=== PATIENT | male | born 1950 ===

== ENCOUNTER 2019-03-22 11:30 | Inpatient (IN) ==
[2019-03-22] MEDS ORDERED: 0.9 % Sodium Chloride 1,000 ML IVC ONE (12:10)
[2019-03-22] MEDS ORDERED: Levofloxacin 750 MG/150 ML 750 MG/150 ML BAG IVPB ONE (12:11)
--- NOTE | 2019-03-22 12:14 | Emergency Department Note ---
Disposition Clinical Impression: Community acquired pneumonia Disposition: Admitted As Inpatient Condition: Fair Referrals: Wang Nunes [Primary Care Provider] - Forms: ED Satisfaction Letter General Adult HPI - General Chief complaint: ED Shortness of Breath/Dyspnea Stated complaint: Lung infection,CA Patient Time Seen by Provider: 03/22/19 11:54 Source: patient Limitations: no limitations Nursing Notes Reviewed: Yes Vital Signs Reviewed: Yes - History of Present Illness HPI Narrative: Patient is a 68-year-old male that presented emergency room with complaints of shortness of breath, the patient apparently just had a CAT scan done this morning. The patient apparently had evidence of pneumonia on the CAT scan and was sent here to the emergency room for further evaluation. Patient feels he is short of breath is especially worse with exertion. It is been worse over the past 1-2 weeks he states. The patient has been on long-term prednisone taper. Patient states that he does have occasional cough that brings up phlegm he states. He denies any leg pain or swelling. Patient does have a history of lung cancer. Patient denies any abdominal pain. The patient denies any significant chest pain. The patient states sometimes with cough he does have bilateral chest discomfort only. The patient denies any focal weakness or numbness. The patient states earlier this morning he did stand up and he got somewhat sweaty and short of breath when he stood up. Patient denies any congestion, he denies any headache, he denies any focal weakness or numbness. Pain Scale: 1 - Related Data Home Medications Medication Instructions Recorded Confirmed Pantoprazole Sodium [Protonix] 20 mg PO DAILY 09/24/18 03/22/19 Previous Rx's Medication Instructions Recorded Ondansetron [Zofran] 1 tab PO BID PRN #60 tablet 07/20/18 Prochlorperazine Maleate 1 tab PO Q6HR PRN #30 tablet 07/20/18 [Compazine] Albuterol Sulfate [Albuterol 1 puff IH BID PRN #1 hfa.aer.ad 01/12/19 Inhaler] Ranitidine HCl [Heartburn Relief] 150 mg PO DAILY #30 tablet 02/11/19 predniSONE [PredniSONE] 10 mg PO DAILY #151 tablet 02/21/19 LORazepam [Ativan] 1 mg PO ONCE 1 Days #1 tablet 03/22/19 Allergies Allergy/AdvReac Type Severity Reaction Status Date / Time aspirin Allergy Anaphylaxis Verified 03/22/19 08:14 Review of Systems: As mentioned per history of present illness and as follows. Constitutional: Negative for chills or fever HENT: Negative for sore throat. Eyes: Negative for visual disturbance Respiratory: Positive for shortness of breath. Cardiovascular: Negative for palpitations. Gastrointestinal: Negative for abdominal pain Genitourinary: Negative for dysuria Musculoskeletal: Negative for back pain. Skin: Negative for rash. Neurological: Negative for focal weakness Psychiatric/Behavioral: Negative for depression Past Medical History - Past Medical History Medical history: Reports: arthritis, cancer, hyperlipidemia, hypertension, migraine Surgical history: Reports: no surgical history Psychiatric history: Reports: no psych history - Social History Smoking Status: Former smoker Smokeless Tobacco Status: No Alcohol use: Reports: none Drug use: Reports: none Physical Exam PHYSICAL EXAM Constitutional: Well developed, Well nourished, No acute distress, Non-toxic appearance. HENT: Normocephalic, Atraumatic, Bilateral external ears normal, Oropharynx moist, No oral exudates, Nose normal. Neck- Normal range of motion, No tenderness, Supple. Eyes: PERRL, EOMI, Conjunctiva normal,. Cardiovascular: Tachycardic rate and regular rhythm without clicks, rubs, gallops or murmurs. Respiratory: Patient is admitted over air movement, no significant distress as noted, the patient has no severe wheezing, scattered crackles noted. GI: Soft, nontender, no evidence of guarding or peritoneal signs. Bowel sounds are active. Musculoskeletal: Good range of motion in all major joints. No tenderness to palpation or major deformities noted. +5/5 strength noted to all extremities. Integument: Warm, Dry, No erythema, No rash. No edema. Neurologic: Alert & oriented x 3, Normal sensory function, No focal deficits noted. CN II-XII grossly intact. - General Limitations: no limitations General appearance: alert, in no apparent distress Course Vital Signs Temperature 97.8 F 03/22/19 11:38 Pulse Rate 116 03/22/19 11:38 Respiratory Rate 20 03/22/19 11:38 Blood Pressure 141/87 03/22/19 11:38 O2 Sat by Pulse Oximetry 93 03/22/19 11:38 Temperature 97.8 F 03/22/19 11:38 Pulse Rate 122 03/22/19 12:58 Respiratory Rate 17 03/22/19 12:58 Blood Pressure 141/87 03/22/19 11:38 O2 Sat by Pulse Oximetry 93 03/22/19 12:58 Oxygen Delivery Oxygen Delivery Nasal Cannula Medical Decision Making - MDM Narrative Medical decision making narrative: Patient did have a CTA done this morning prior to arrival, was reviewed by myself. This did show evidence of what appears to be more of an interstitial pneumonia type pattern. The patient does have lung nodules noted. The patient appears to also have some metastatic spread to the thoracic spine. Patient however is neurologically intact currently in the emergency room. EKG was also performed that showed evidence of sinus tachycardia and 113 bpm. The patient has no evidence of ST elevation or depression, WA and QT intervals within normal limits. Intervertebral myself. Patient was given breathing treatments here in the emergency room. The patient was also given Levaquin for a community-acquired pneumonia. The patient this point time is going to be admitted. Case was discussed with the hospitalist in full detail and the patient will be admitted to the floor in stable condition. Patient has been placed on supplement oxygen and O2 sats have improved with this. Impression 1. Community acquired pneumonia 2. Acute respiratory failure with hypoxia - Lab Data Result diagrams: 03/22/19 12:00 03/22/19 12:00 Lab Results 03/22/19 03/22/19 03/22/19 Range/Units 12:00 12:00 12:00 WBC 8.3 (4.3-11.1) K/mcL RBC 4.58 (4.19-5.50) M/mcL Hgb 13.6 (12.9-16.9) g/dL Hct 41.1 (37.5-50.1) % MCV 89.7 (83.0-100.0) fL MCH 29.7 (28.0-33.3) pg MCHC 33.1 (31.6-35.5) g/dL RDW 15.3 H (11.5-14.5) % Plt Count 120 L (140-400) K/mcL MPV 9.9 (9.4-12.4) fL Immature Gran % 0.5 (0-4) % Seg Neutrophils % 85.6 % Lymphocytes % 9.6 % Monocytes % 4.1 % Eosinophils % 0.0 % Basophils % 0.2 % Neutrophils # 7.1 (1.6-8.9) K/mcL Lymphocytes # 0.8 (0.6-4.6) K/mcL Monocytes # 0.3 (0.0-1.3) K/mcL Eosinophils # 0.0 (0.0-0.6) K/mcL Basophils # 0.0 (0.0-0.2) K/mcL Sodium 137 (136-145) mEq/L Potassium 3.9 (3.5-5.1) mEq/L Chloride 100 (98-107) mEq/L Carbon Dioxide 25 (23-29) mEq/L BUN 20 (8-23) mg/dL Creatinine 0.97 (0.70-1.30) mg/dL Est GFR ( Amer) > 60 (> 60) Est GFR (Non-Af Amer) > 60 (> 60) BUN/Creatinine Ratio 21 (6-26) Glucose 156 H (70-105) mg/dL Calculated Osmolality 290 (280-300) Lactic Acid 0.8 (0.5-2.2) mmol/L Calcium 10.1 (8.6-10.3) mg/dL Troponin I < 0.03 (< 0.04) ng/mL B-Natriuretic Peptide (Less than 100) pg/mL 03/22/19 Range/Units 12:00 WBC (4.3-11.1) K/mcL RBC (4.19-5.50) M/mcL Hgb (12.9-16.9) g/dL Hct (37.5-50.1) % MCV (83.0-100.0) fL MCH (28.0-33.3) pg MCHC (31.6-35.5) g/dL RDW (11.5-14.5) % Plt Count (140-400) K/mcL MPV (9.4-12.4) fL Immature Gran % (0-4) % Seg Neutrophils % % Lymphocytes % % Monocytes % % Eosinophils % % Basophils % % Neutrophils # (1.6-8.9) K/mcL Lymphocytes # (0.6-4.6) K/mcL Monocytes # (0.0-1.3) K/mcL Eosinophils # (0.0-0.6) K/mcL Basophils # (0.0-0.2) K/mcL Sodium (136-145) mEq/L Potassium (3.5-5.1) mEq/L Chloride (98-107) mEq/L Carbon Dioxide (23-29) mEq/L BUN (8-23) mg/dL Creatinine (0.70-1.30) mg/dL Est GFR ( Amer) (> 60) Est GFR (Non-Af Amer) (> 60) BUN/Creatinine Ratio (6-26) Glucose (70-105) mg/dL Calculated Osmolality (280-300) Lactic Acid (0.5-2.2) mmol/L Calcium (8.6-10.3) mg/dL Troponin I (< 0.04) ng/mL B-Natriuretic Peptide 23 (Less than 100) pg/mL Critical Care Time Total Critical Care Time: 35 Attestation: Critical care time of 35 minutes performed aside separately billable procedures. This includes exam, multiple discussions with patient and family, discussion with hospitalist.
[2019-03-22 12:18] LABS: Basophils % 0.2 %; Hematocrit 41.1 % (37.5-50.1); Hemoglobin 13.6 g/dL (12.9-16.9); Immature Granulocytes % 0.5 % (0-4); Lymphocytes # 0.8 K/mcL (0.6-4.6); Lymphocytes % 9.6 %; Mean Corpuscular HGB Conc 33.1 g/dL (31.6-35.5); Mean Corpuscular Hemoglobin 29.7 pg (28.0-33.3); Mean Corpuscular Volume 89.7 fL (83.0-100.0); Mean Platelet Volume 9.9 fL (9.4-12.4); Monocytes # 0.3 K/mcL (0.0-1.3); Monocytes % 4.1 %; Neutrophils # 7.1 K/mcL (1.6-8.9); Platelet Count 120 K/mcL (140-400); Red Blood Count 4.58 M/mcL (4.19-5.50); Red Cell Distribution Width 15.3 % (11.5-14.5); Segmented Neutrophils % 85.6 %
[2019-03-22 12:37] LABS: BUN/Creatinine Ratio 21 (6-26); Blood Urea Nitrogen 20 mg/dL (8-23); Calcium 10.1 mg/dL (8.6-10.3); Carbon Dioxide 25 mEq/L (23-29); Chloride 100 mEq/L (98-107); Glucose 156 mg/dL (70-105); Osmolality,Calculated 290 (280-300); Potassium 3.9 mEq/L (3.5-5.1); Sodium 137 mEq/L (136-145); Troponin I < 0.03 ng/mL (< 0.04); eGFR For Non-African Americans > 60 (> 60)
[2019-03-22] MEDS: Ipratropium/Albuterol Neb 3 ML IH ONE (12:38)
[2019-03-22] MEDS ORDERED: *HR* HYDROcodone/Acet 5/325 mg TABLET PO PRN (15:09)
[2019-03-22] MEDS ORDERED: Acetaminophen 325 MG TABLET PO PRN (15:09)
[2019-03-22] MEDS ORDERED: Naloxone 0.4 MG/ML INJ IVP PRN (15:09)
[2019-03-22] MEDS ORDERED: Ondansetron 4 MG/2 ML VIAL IVP PRN (15:09)
[2019-03-22] MEDS ORDERED: Ipratropium/Albuterol Neb 3 ML IH PRN (15:11)
--- NOTE | 2019-03-22 15:21 | Internal Med History&Physical ---
Date of Encounter: 03/22/19 Time of Encounter: 15:19 Internal Medicine - H&P: HPI Chief complaint: Dyspnea Admitted From: Emergency Dept Plans for Post Hospital Care: Home History of present illness: Mr. Jensen is a 68 year old male with history of hypertension, small cell lung cancer presents with shortness of breath. He states this is been going on for a week or so and is progressively worse. He states approximately 6 weeks ago he had shortness of breath and was started on a steroid taper and he improved however over the last week and shortness of breath is worsened. He was not given an antibiotic at this time. He states now over the last several days his shortness of breath as compared acutely worsen. He is initially more short of breath with activity that was improved with rest, but then this morning he had shortness of breath at rest. He also reports associated cough that is barely productive with clear sputum. Denies hemoptysis. He reports subjective fevers this morning. He states he has been monitoring his oxygen level at home and mostly has been 93-95% however today he gets noticed that it trended down into the mid 80s and as low as 79%. He denies chest pain, abdominal pain, nausea, vo miting. Discussed with patient wishes to be full code. Past Med Surg Social Fam HX - Past Medical History Medical history: arthritis, cancer, hyperlipidemia, hypertension, migraine Additional medical history: lung cancer, cervical ddd,colon polyps Psychiatric history: no psych history - Past Surgical History Surgical History: no surgical history - Social History Smoking Status: Former smoker (Quit in 1994) Smokeless Tobacco Status: No Alcohol use: none Drug use: none - Additional Family History Additional family history: Patient reports a history of lung cancer in his father and breast cancer in his mother. Internal Medicine - H&P: Meds Ondansetron [Zofran] 1 tab PO BID PRN #60 tablet 07/20/18 [Rx] Prochlorperazine Maleate [Compazine] 1 tab PO Q6HR PRN #30 tablet 07/20/18 [Rx] Pantoprazole Sodium [Protonix] 20 mg PO DAILY 09/24/18 [History] Albuterol Sulfate [Albuterol Inhaler] 1 puff IH BID PRN #1 hfa.aer.ad 01/12/19 [Rx] Ranitidine HCl [Heartburn Relief] 150 mg PO DAILY #30 tablet 02/11/19 [Rx] predniSONE [PredniSONE] 10 mg PO DAILY #151 tablet 02/21/19 [Rx] LORazepam [Ativan] 1 mg PO ONCE 1 Days #1 tablet 03/22/19 [Rx] Allergy/AdvReac Type Severity Reaction Status Date / Time aspirin Allergy Anaphylaxis Verified 03/22/19 08:14 All Systems PM: A 10-system review of systems was performed and is negative for pertinent findings except as documented above in the HPI. Review of systems: 10 point review systems was obtained and negative other than stated: - Constitutional Constitutional: chills, fever(s) - Cardiovascular Cardiovascular ROS IM: dyspnea, dyspnea on exertion, no chest pain, no edema - Respiratory Respiratory: cough, dyspnea, no hemoptysis, no wheezing, no chest congestion, no excessive phlegm production, no change in phlegm color - Gastrointestinal Gastrointestinal: no abdominal pain, no nausea, no vomiting - Constitutional Vitals: Temp Pulse Resp BP Pulse Ox 97.8 F 122 17 141/87 93 03/22/19 11:38 03/22/19 12:58 03/22/19 12:58 03/22/19 11:38 03/22/19 12:58 Respiratory measured by me was 16. General appearance: Present: A&O X 3, pleasant, no acute distress Exam: . - Head Head exam: Present: atraumatic, normal inspection, normocephalic - Eye Eye exam: Present: EOMI, PERRL - ENT ENT exam: Present: mucous membranes moist, normal oropharynx - Neck Neck exam general surgery: Present: full ROM, supple. Absent: tenderness - Respiratory Respiratory exam: Present: rhonchi (Left lower lobe), wheezes (Rare, scattered, end expiratory). Absent: accessory muscle use, rales, respiratory distress, tachypnea - Cardiovascular Cardiovascular exam: Present: tachycardia (Regular rhythm). Absent: gallop, rubs, systolic murmur - GI/Abdominal GI/Abdominal exam: Present: normal bowel sounds, soft. Absent: distended, tenderness - Extremities Exam Extremities exam: Present: warm. Absent: calf tenderness, pedal edema - Neurological Exam Neurological exam: Present: alert, CN II-XII intact, oriented X3, no focal deficits, strengths equal and symetr throughout. Absent: facial droop, speech deficit - Psychiatric Psychiatric exam: Present: normal affect, normal mood - Skin Skin exam: Present: dry, intact, warm Internal Med - H&P Results - Labs CBC & Chem 7: 03/22/19 12:00 03/22/19 12:00 Labs: Short CBC 03/22/19 Range/Units 12:00 WBC 8.3 (4.3-11.1) K/mcL Hgb 13.6 (12.9-16.9) g/dL Hct 41.1 (37.5-50.1) % Plt Count 120 L (140-400) K/mcL Neutrophils # 7.1 (1.6-8.9) K/mcL BMP 03/22/19 12:00 Sodium 137 Potassium 3.9 Chloride 100 Carbon Dioxide 25 BUN 20 Creatinine 0.97 Glucose 156 H Calcium 10.1 Cardiac Enzymes 03/22/19 Range/Units 12:00 Troponin I < 0.03 (< 0.04) ng/mL - Assessment and Plan (1) Acute respiratory failure with hypoxia Current Visit: Yes Status: Acute Assessment and plan: Secondary to pneumonia. Does not wear oxygen at home. Very mildly hypoxic. W hen I checked the patient's oxygen in his room he did drop to 87%. Maintaining in the mid 90s on 2 L. Continue supplemental oxygen to maintain oxygen greater than 88%. (2) Community acquired pneumonia Current Visit: Yes Status: Acute Assessment and plan: CT scan reviewed and has subpleural groundglass opacities with occasional nodules. Given the patient's symptoms of progressive shortness of breath and cough I feel like this is most likely an infectious process. Initial lung disease and metastatic disease are also on the differential. We will treat with Levaquin daily and IV Solu-Medrol as well as as needed bronchodilators. Wean steroids as tolerated. If patient fails to improve then would consider pulmonology consult. Patient will need close up follow up with his oncologist. I did discuss the CT results with the patient. Labs reviewed, patient does not have leukocytosis. Patient mildly tachycardic but otherwise vital signs are normal, I do not believe the patient is septic. Qualifiers: Laterality: right Lung location: unspecified part of lung Qualified Code(s): J18.9 - Pneumonia, unspecified organism (3) Small cell lung cancer Current Visit: Yes Status: Acute Assessment and plan: Of. Patient was diagnosed last year and completed chemotherapy and radiation. He continues to follow up with oncology. No evidence of recurrence on previous scans. Did discuss CT results that recurrence of small cell lung cancer is a possibility given the CT findings, however I do recommend treating for inf ectious causes and having him have close follow-up with his oncologist. He states he is scheduled to see his oncologist's Thursday. (4) Hypertension Current Visit: Yes Status: Acute Assessment and plan: Patient reports history of hypertension and not on any treatment. Blood pressure noted to be elevated. Start lisinopril 10 mg daily. Qualifiers: Hypertension type: essential hypertension Qualified Code(s): I10 - Essential (primary) hypertension (5) DVT prophylaxis Current Visit: Yes Status: Acute Assessment and plan: Heparin 5000 units subcutaneous twice a day - Time Spent With Patient Total time spent is greater than 50% in coordination of care (as documented) at patient's floor/unit and/or counseling patient:
--- NOTE | 2019-03-22 15:23 | Electrocardiograph Report ---
[address] [place], [place] [address] Test Date: 2019-03-22 Pat Name: David Jensen Department: [id number] Room: 3A Gender: M Dermatology Procedural Physician: : 1950 Requested By: [id number] Order Number: [id number] Reading MD: Jeremy Galaviz Measurements Intervals Inlet Rate: 113 P: 60 NH: 157 QRS: 61 QRSD: 86 T: 32 QT: 308 QTc: 423 Interpretive Statements Sinus tachycardia Electronically Signed On 03-22-2019 15:21:42 EDT by Jeremy Galaviz
[2019-03-22] MEDS: *HR* Heparin 5,000 UNIT/ML VIAL SQ SCH (17:25)
[2019-03-22] MEDS: MethylPREDNISolone 40 MG/ML VIAL IVP SCH (17:25)
[2019-03-23 00:20] LABS: Adenovirus Not Detected (Not Detect); Bordetella Pertussis Not Detected (Not Detect); Chlamydophila pneumoniae Not Detected (Not Detect); Coronavirus 229E Not Detected (Not Detect); Coronavirus HKU1 Not Detected (Not Detect); Coronavirus NL63 Not Detected (Not Detect); Coronavirus OC43 Not Detected (Not Detect); Human Metapneumovirus Not Detected (Not Detect); Human Rhinovirus/Enterovirus Not Detected (Not Detect); Influenza A Subtype 2009 H1 Not Detected (Not Detect); Influenza A Untypeable Not Detected (Not Detect); Influenza B Not Detected (Not Detect); Mycoplasma pneumoniae Not Detected (Not Detect); Parainfluenza Virus 1 Not Detected (Not Detect); Parainfluenza Virus 2 Not Detected (Not Detect); Parainfluenza Virus 3 Not Detected (Not Detect); Parainfluenza Virus 4 Not Detected (Not Detect); Respiratory Syncytial Virus Not Detected (Not Detect)
[2019-03-23 04:31] LABS: Basophils % 0.1 %; Hematocrit 38.1 % (37.5-50.1); Hemoglobin 12.6 g/dL (12.9-16.9); Immature Granulocytes % 0.4 % (0-4); Lymphocytes # 0.9 K/mcL (0.6-4.6); Lymphocytes % 12.4 %; Mean Corpuscular HGB Conc 33.1 g/dL (31.6-35.5); Mean Corpuscular Hemoglobin 29.9 pg (28.0-33.3); Mean Corpuscular Volume 90.5 fL (83.0-100.0); Mean Platelet Volume 9.7 fL (9.4-12.4); Monocytes # 0.5 K/mcL (0.0-1.3); Monocytes % 6.2 %; Neutrophils # 6.1 K/mcL (1.6-8.9); Platelet Count 128 K/mcL (140-400); Red Blood Count 4.21 M/mcL (4.19-5.50); Red Cell Distribution Width 15.2 % (11.5-14.5); Segmented Neutrophils % 80.9 %
[2019-03-23 04:45] LABS: BUN/Creatinine Ratio 21 (6-26); Blood Urea Nitrogen 24 mg/dL (8-23); Calcium 9.5 mg/dL (8.6-10.3); Carbon Dioxide 27 mEq/L (23-29); Chloride 107 mEq/L (98-107); Glucose 145 mg/dL (70-105); Magnesium 2.2 mg/dL (1.6-2.6); Osmolality,Calculated 291 (280-300); Potassium 4.2 mEq/L (3.5-5.1); Sodium 137 mEq/L (136-145); eGFR For Non-African Americans > 60 (> 60)
[2019-03-23] MEDS: *HR* Heparin 5,000 UNIT/ML VIAL SQ SCH ×2 (06:30→18:28)
[2019-03-23] MEDS: MethylPREDNISolone 40 MG/ML VIAL IVP SCH ×2 (06:30→18:28)
--- NOTE | 2019-03-23 08:26 | Internal Med Progress Note ---
<Chris Manning - Last Filed: 03/23/19 13:59> Hospitalist Progress Note - Encounter Date of Encounter: 03/23/19 Time of Encounter: 09:25 - Exam Vitals: Temp Pulse Resp BP Pulse Ox 98.2 F 106 16 135/81 95 03/23/19 11:30 03/23/19 11:30 03/23/19 11:30 03/23/19 11:30 03/23/19 11:30 - Assessment and Plan (1) Community acquired pneumonia Current Visit: Yes Status: Acute (2) Small cell lung cancer Current Visit: Yes Status: Acute (3) Hypertension Current Visit: Yes Status: Acute (4) Acute respiratory failure with hypoxia Current Visit: Yes Status: Acute (5) DVT prophylaxis Current Visit: Yes Status: Acute - Time Spent with Patient Total time spent is greater than 50% in coordination of care (as documented) at patient's floor/unit and/or counseling patient: Internal Medicine: Result - Labs CBC & Chem 7: 03/23/19 03:59 03/23/19 03:59 Labs: Short CBC 03/23/19 Range/Units 03:59 WBC 7.6 (4.3-11.1) K/mcL Hgb 12.6 L (12.9-16.9) g/dL Hct 38.1 (37.5-50.1) % Plt Count 128 L (140-400) K/mcL Neutrophils # 6.1 (1.6-8.9) K/mcL BMP 03/23/19 03:59 Sodium 137 Potassium 4.2 Chloride 107 Carbon Dioxide 27 BUN 24 H Creatinine 1.13 Glucose 145 H Calcium 9.5 Consult Discharge Plan - Plan Referrals: Wang Nunes [Primary Care Provider] - - Attending Attestation I saw evaluated and examined this patient and my medical decision-making was reviewed with the Resident Physician, Margaret Serrano. I agree with the documented findings, disposition and treatment plan as described except to any changes set forth below. We independently had [id number] contact with the patient. Patient continues to have significant shortness of breath. He gets hypoxic with minimal exertion. Currently denies any chest pain. Does have cough with sputum production. No nausea or vomiting. General: Patient is alert, mild distress, oriented x 3 ENT: Mucous membranes moist Respiratory: Coarse breath sounds bilaterally Cardiovascular: Regular rate and rhythm. s1 and s2 normal No clicks, rubs, gallops, or murmurs. No pedal edema Abdomen: Abdomen is soft, nontender. Bowel sounds are present Musculoskeletal: Spontaneously moving all extremities Skin: warm, dry, intact. Neuro: Alert oriented x 3 normal cranial nerves, no focal deficits Acute respiratory failure with hypoxia: Due to bilateral pneumonia. No organism identified. Continue O2 supplementation. Also consulted pulmonology. We will follow recommendations. Pneumonia: Bacterial. Treating with IV antibiotics. No organism identified. Possibly atypical organism. We will check MRSA screen given his underlying history of lung cancer. Small cell lung cancer: Reviewed CT scan findings with radiation oncologist. Recommended pulmonary consult for possible bronchoscopy. Follow up with oncology after discharge. Essential hypertension: Started on lisinopril. Will continue to monitor blood pressure. DVT prophylaxis with subcutaneous heparin <Margaret Serrano - Last Filed: 03/23/19 18:51> Hospitalist Progress Note - Encounter Date of Encounter: 03/23/19 Time of Encounter: 08:26 - Subjective Interval History: Mr. Jensen was seen and evaluated at the bedside. He endorses ongoing shortness of breath, and cough productive of yellow tinged sputum. He denies any chest pain, palpitations, fevers, or chills. Nursing staff reports no acute overnight events. - Exam Vitals: Temp Pulse Resp BP Pulse Ox 98.2 F 90 16 157/84 92 03/23/19 03:42 03/23/19 07:14 03/23/19 07:14 03/23/19 07:14 03/23/19 07:14 Exam: GENERAL: Well-developed, well-nourished adult male in no acute distress. He is pleasant and appears to be a reliable historian. HEENT: Atraumatic and normocephalic. CARDIOVASCULAR: Regular rate and rhythm. S1 and S2 present. No murmurs, gallops, or rubs. RESPIRATORY: Diffusely decreased bilaterally without evidence of rales, wheezes, or rhonchi. Chest rises and falls symmetrically without accessory muscle use. GASTROINTESTINAL: Abdomen is soft, nontender, nondistended. EXTREMITIES: No clubbing, cyanosis, or edema. SKIN: Warm, dry, and intact. NEUROLOGIC: Alert and oriented x3. Patient is cooperative with exam and answers questions appropriately. No apparent focal deficits. PSYCHIATRIC: Appropriate mood and affect. - Assessment and Plan (1) Acute respiratory failure with hypoxia Current Visit: Yes Status: Acute Assessment and Plan: Secondary to pneumonia. - Continue antimicrobial treatment and plan as detailed below for community- acquired pneumonia. - Await bronchoscopy tomorrow. Appreciate pulmonology recommendations regarding management of this problem. - Continuous pulse oximetry, with continued use of supplemental oxygen to maintain appropriate saturation. (2) Community acquired pneumonia Current Visit: Yes Status: Acute Assessment and Plan: Patient presented with progressive shortness of breath and cough, which he states has been productive of yellow tinged sputum. CTA of the chest performed on 03/22/2019 did demonstrate diffuse interstitial opacities with possible mild groundglass opacities in subpleural and basilar distribution. Per patient's oncologist, concern for possible PCP pneumonia as he has been on a prolonged course of steroids. - Continue Levaquin 750mg daily and Solu-Medrol 40mg IVP Q12H. - Continue bronchodilators, including duo nebs Q4H scheduled and albuterol Q2H PRN. (3) Small cell lung cancer Current Visit: Yes Status: Chronic Assessment and Plan: Patient has a history of small cell lung cancer S/P chemotherapy and radiation. He is followed by oncology. CTA of the chest performed on 03/22/2019 demonstrated new bilateral pulmonary nodules predominantly subpleural in location, the largest of which was found to measure 14 x 10 mm in the right upper lobe. Per radiology, differential includes atypical infection versus recurrent/metastatic disease. Patient was also noted to have interstitial opacities with appearance most suggestive of NSIP or early UIP without honeycombing, though drug induced interstitial lung disease was noted to have a similar appearance. - Continue antimicrobial treatment as detailed above. - Recommend close outpatient follow-up with oncology for ongoing evaluation and management. (4) Hypertension Current Visit: Yes Status: Acute Assessment and Plan: Patient reports history of hypertension and not on any treatment. Blood pressure was noted to be elevated at the time of admission, prompting initiation of therapy with lisinopril 10 mg. - Continue current medication regimen and monitoring of blood pressures. (5) DVT prophylaxis Current Visit: Yes Status: Acute Assessment and Plan: - Heparin 5000units SQ Q12H. - Time Spent with Patient Total time spent is greater than 50% in coordination of care (as documented) at patient's floor/unit and/or counseling patient: Internal Medicine: Result - Labs CBC & Chem 7: 03/23/19 03:59 03/23/19 03:59 Labs: Short CBC 03/22/19 03/23/19 Range/Units 12:00 03:59 WBC 8.3 7.6 (4.3-11.1) K/mcL Hgb 13.6 12.6 L (12.9-16.9) g/dL Hct 41.1 38.1 (37.5-50.1) % Plt Count 120 L 128 L (140-400) K/mcL Neutrophils # 7.1 6.1 (1.6-8.9) K/mcL BMP 03/22/19 03/23/19 12:00 03:59 Sodium 137 137 Potassium 3.9 4.2 Chloride 100 107 Carbon Dioxide 25 27 BUN 20 24 H Creatinine 0.97 1.13 Glucose 156 H 145 H Calcium 10.1 9.5 Cardiac Enzymes 03/22/19 Range/Units 12:00 Troponin I < 0.03 (< 0.04) ng/mL <Chris Manning - Last Filed: 03/23/19 13:59> (1) Community acquired pneumonia Qualifiers: Laterality: right Lung location: unspecified part of lung Qualified Code(s): J18.9 - Pneumonia, unspecified organism (3) Hypertension Qualifiers: Hypertension type: essential hypertension Qualified Code(s): I10 - Essential (primary) hypertension <Margaret Serrano - Last Filed: 03/23/19 18:51> (2) Community acquired pneumonia Qualifiers: Laterality: right Lung location: unspecified part of lung Qualified Code(s): J18.9 - Pneumonia, unspecified organism (4) Hypertension Qualifiers: Hypertension type: essential hypertension Qualified Code(s): I10 - Essential (primary) hypertension
--- NOTE | 2019-03-23 09:02 | Pulmonology Consult Note ---
Date of Encounter: 03/23/19 Time of Encounter: 09:10 Assessment and Plan (1) Acute respiratory failure with hypoxia Current Visit: Yes Status: Acute Patient with acute hypoxic respiratory failure and his been treated with radiation and with no significant response to systemic steroid and he is immune compromised that main differential diagnosis for opportunistic infection as well as a topical infections in this patient and have discussed with him in the presence of the nurse regarding bronchoscopy and he had it before when he was diagnosed with the lung cancer. Patient agreed to have it done and supportive treatment at this time with empiric antibiotics are reasonable. Patient will have bronchoscopy tomorrow and discussed with primary team and the nurse to keep him nothing by mouth postmidnight for the procedure. A bronchoscopy is recommended. The procedure , risks, benefits, complications, and expected outcomes have been reviewed. Benefits of diagnosis, as well as risks to include bleeding, infection, pneumothorax which may require surgical intervention, and in a small population. The patient is aware that some times test is nondiagnostic. Discussed with patient and agrees to proceed. Thank you for consultation. (2) Small cell lung cancer Current Visit: Yes Status: Chronic History of Present Illness Consult date: 03/23/19 Requesting physician: Margaret Serrano Reason for consult: dyspnea Chief complaint: Dyspnea History of present illness: This is a 68 a year old male with multiple medical problems and he has history of small cell lung cancer was been having shortness of breath and requiring oxygen. I have discussed with the radiation oncologist and the patient is being treated for radiation pneumonitis, however his CT chest suspicious for infection and patient is been having some productive cough and he has not been doing any better. Patient had denies any hemoptysis and no significant wheezing. He has been on systemic steroid without significant improvement. Patient stated he shortness of breath is worsen with exertion, however improves with rest. Pulmonary consulted for evaluation and possible bronchoscopy. Past Med Surg Social Fam HX - Past Medical History Medical history: arthritis, cancer, hyperlipidemia, hypertension, migraine Additional medical history: lung cancer, cervical ddd,colon polyps Psychiatric history: no psych history - Past Surgical History Surgical History: no surgical history - Social History Smoking Status: Former smoker Smokeless Tobacco Status: No Alcohol use: none Drug use: none Medications and Allergies Pantoprazole Sodium [Protonix] 20 mg PO QAM 09/24/18 [History] Albuterol Sulfate [Albuterol Inhaler] 1 puff IH BID PRN #1 hfa.aer.ad 01/12/19 [Rx] Ranitidine HCl [Heartburn Relief] 150 mg PO DAILY #30 tablet 02/11/19 [Rx] predniSONE [PredniSONE] 10 mg PO DAILY #151 tablet 02/21/19 [Rx] Losartan/Hydrochlorothiazide [Losartan-Hctz 50-12.5 mg Tab] 1 tab PO DAILY PRN 03/22/19 [History] raNITIdine HCl [Ranitidine HCl] 300 mg PO HS PRN 03/22/19 [History] Allergy/AdvReac Type Severity Reaction Status Date / Time aspirin Allergy Anaphylaxis Verified 03/22/19 16:02 All Systems: The remainder of the systems were reviewed and are negative Physical Examination Vital Signs: Vital Signs, Last 4 Hours Pulse Resp BP Pulse Ox 03/23/19 07:14 90 16 157/84 92 General appearance: no acute distress Eyes: nonicteric ENT: oropharynx moist Neck: supple Effort: mildly labored Auscultation: bilateral: rhonchi Percussion: bilateral: not dull Cardiovascular: regular rate and rhythm Gastrointestinal: normoactive bowel sounds, non-distended Extremities: no cyanosis normal mental status, non-focal exam mood appropriate Results - Laboratory Findings CBC and BMP: 03/23/19 03:59 03/23/19 03:59 Abnormal lab findings: Abnormal lab results Hgb 12.6 g/dL (12.9-16.9) L 03/23/19 03:59 RDW 15.2 % (11.5-14.5) H 03/23/19 03:59 Plt Count 128 K/mcL (140-400) L 03/23/19 03:59 BUN 24 mg/dL (8-23) H 03/23/19 03:59 Glucose 145 mg/dL (70-105) H 03/23/19 03:59 - Microbiology Findings Microbiology Findings: Microbiology, Last 48 Hours 03/23/19 03:40 Sputum Culture - Final Sputum 03/23/19 03:40 Legionella Antigen - Final Urine,Clean Catch Streptococcus pneumoniae Antigen (M - Final 03/22/19 12:00 Blood Culture - Preliminary Peripheral Venipuncture Culture is incubating and being continuously monitored for growth. Final report to follow. 03/22/19 12:18 Blood Culture - Preliminary Peripheral Venipuncture Culture is incubating and being continuously monitored for growth. Final report to follow. - Diagnostic Findings CT scan - chest: report reviewed, image reviewed - Clinical Findings Intake & Output: Intake & Output 03/22/19 03/23/19 03/23/19 23:59 07:59 15:59 Intake Total 680 / 1830 200 / 200 Output Total 0 / 0 120 / 120 Balance 680 / 1830 80 / 80 Weight 97.1 kg Consult Discharge Plan - Plan Referrals: Wang Nunes [Primary Care Provider] -
[2019-03-23] MEDS: Levofloxacin 750 MG/150 ML 750 MG/150 ML BAG IVPB SCH (12:33)
[2019-03-23] MEDS: Sennosides/Docusate Sodium TABLET PO SCH (12:33)
[2019-03-23] MEDS ORDERED: Albuterol 2.5 MG/3 ML NEBULIZER IH PRN (18:24)
--- NOTE | 2019-03-23 18:45 | Anesthesia Evaluation PreOp ---
Date of Encounter: 03/23/19 Time of Encounter: 18:43 - Past History Planned Operation: Bronch Cardiac History: HTN, Hyperlipidemia Pulmonary History: Former smoker (quit in 1994), Pack/yr (30), Other (acute respiratory failure with hypoxia, small cell lung ca treated with radiation therapy) SAUSAGE LINKER History: Other (mifraine) Anesthesia History: No Prior Anesthetic Complications, Past Anesthesia (EBUS) Alcohol Use: none Drug use: none Medications and Allergies Pantoprazole Sodium [Protonix] 20 mg PO QAM 09/24/18 [History] Albuterol Sulfate [Albuterol Inhaler] 1 puff IH BID PRN #1 hfa.aer.ad 01/12/19 [Rx] Ranitidine HCl [Heartburn Relief] 150 mg PO DAILY #30 tablet 02/11/19 [Rx] predniSONE [PredniSONE] 10 mg PO DAILY #151 tablet 02/21/19 [Rx] Losartan/Hydrochlorothiazide [Losartan-Hctz 50-12.5 mg Tab] 1 tab PO DAILY PRN 03/22/19 [History] raNITIdine HCl [Ranitidine HCl] 300 mg PO HS PRN 03/22/19 [History] Allergy/AdvReac Type Severity Reaction Status Date / Time aspirin Allergy Anaphylaxis Verified 03/22/19 16:02 - Meds/Allergy Pre-op Review Medications Reviewed: Yes Allergies Reviewed: Yes Beta Blockers on Current Med List: No Anesthesia Results - Labs 03/23/19 03:59 03/23/19 03:59 - Imaging EKG: report reviewed (Sinus tachycardia Electronically Signed On 03-22-2019 15:2 1:42 EDT by Jeremy Galaviz) Anesthesia Exam Vital Signs/O2 Sat, Most Current Temp Pulse Resp BP Pulse Ox 98.3 F 100 18 119/75 93 03/23/19 15:46 03/23/19 15:46 03/23/19 15:46 03/23/19 15:46 03/23/19 15:46 - HEENT Pupil (Motor): Pupils equal, EOMI Mallampati: III Teeth: Edentulous Oral Opening: Greater than 3 - SAUSAGE LINKER LOC: Oriented SAUSAGE LINKER Motor: Normal RUE, Normal LUE, Normal RLE, Normal LLE, Normal Face SAUSAGE LINKER Sensory: Normal: RUE, LUE, RLE, LLE, Face - Cardiac Rhythm: Regular - Pulmonary Breath Sounds: bilateral Rhonchi Respiratory Effort: Labored Anesthesia Assess/Plan ASA Score: 4 (acute respiratory failure with hypoxia, small cell lung ca, HTN) Level of consciousness: Cooperative Anesthetic Plan: General (increased risk of periop respiratory complications including prolonged intubation and icu stay) Monitoring Plan: Standard Monitors Recovery Plan: PACU
[2019-03-23] MEDS ORDERED: Ipratropium/Albuterol Neb 3 ML ONE (18:47)
[2019-03-23] MEDS: Ipratropium/Albuterol Neb 3 ML IH ONE (18:59)
[2019-03-23] MEDS: Ipratropium/Albuterol Neb 3 ML IH SCH ×2 (20:35→23:41)
[2019-03-24 04:19] LABS: Basophils % 0.1 %; Hematocrit 40.2 % (37.5-50.1); Hemoglobin 12.8 g/dL (12.9-16.9); Immature Granulocytes % 0.7 % (0-4); Lymphocytes # 0.9 K/mcL (0.6-4.6); Lymphocytes % 11.6 %; Mean Corpuscular HGB Conc 31.8 g/dL (31.6-35.5); Mean Corpuscular Hemoglobin 29.3 pg (28.0-33.3); Monocytes # 0.4 K/mcL (0.0-1.3); Monocytes % 5.6 %; Neutrophils # 6.2 K/mcL (1.6-8.9); Platelet Count 129 K/mcL (140-400); Red Blood Count 4.37 M/mcL (4.19-5.50); Red Cell Distribution Width 15.3 % (11.5-14.5)
[2019-03-24] MEDS: Ipratropium/Albuterol Neb 3 ML IH SCH ×6 (04:19→23:18)
[2019-03-24 04:38] LABS: BUN/Creatinine Ratio 20 (6-26); Blood Urea Nitrogen 23 mg/dL (8-23); Calcium 9.8 mg/dL (8.6-10.3); Carbon Dioxide 28 mEq/L (23-29); Chloride 103 mEq/L (98-107); Glucose 160 mg/dL (70-105); Osmolality,Calculated 297 (280-300); Potassium 4.6 mEq/L (3.5-5.1); Sodium 140 mEq/L (136-145); eGFR For Non-African Americans > 60 (> 60)
[2019-03-24] MEDS: *HR* Heparin 5,000 UNIT/ML VIAL SQ SCH ×2 (05:30→18:44)
[2019-03-24] MEDS: MethylPREDNISolone 40 MG/ML VIAL IVP SCH (05:34)
[2019-03-24] MEDS ORDERED: *HR* FentaNYL (PF) 100 MCG/2 ML VIAL ONE (06:21)
[2019-03-24] MEDS ORDERED: *HR* Midazolam HCl 2 MG/2 ML VIAL ONE (06:22)
[2019-03-24] MEDS ORDERED: *HR* Propofol 200 MG/20 ML VIAL IVP ONE ×2 (06:22)
[2019-03-24] MEDS ORDERED: Lidocaine -MPF 2% 2 ML VIAL ONE (06:26)
[2019-03-24] MEDS ORDERED: Ondansetron 4 MG/2 ML VIAL ONE (06:27)
[2019-03-24] MEDS ORDERED: Dexamethasone 4 MG/ML VIAL ONE (06:27)
[2019-03-24] MEDS ORDERED: Lidocaine -MPF 4% 5 ML AMPUL ONE (06:28)
[2019-03-24] MEDS ORDERED: *HR* Succinylcholine 200 MG/10 ML VIAL IVP ONE (06:41)
[2019-03-24] MEDS ORDERED: *HR* PHENYLEPHRINE 1,000 MCG/10 ML SYRINGE IVP ONE (07:20)
--- NOTE | 2019-03-24 09:09 | Anesthesia Evaluation Post Op ---
Date of Encounter: 03/24/19 Time of Encounter: 09:09 - Vital Signs Vital Signs: Vital Signs/O2 Sat/Glucose, Most Recent Temp Pulse Resp BP Pulse Ox 98.7 F 118 16 132/88 91 03/24/19 08:33 03/24/19 08:53 03/24/19 08:53 03/24/19 08:53 03/24/19 08:53 Blood Glucose* 112 - Lungs Lungs: Clear Ascult./Percussion - Airway Airway: Non-obstructed - Cardiovascular Regular Rate - Mental Status Mental Status: Alert & Oriented, Answers Appropriately - Pain Pain Scale: 0 - Nausea Vomiting Nausea Vomiting: Not Present - Hydration Hydration: Tolerates oral liquids - Discharge PostOp Status: Transfer Patient to floor
[2019-03-24] MEDS: Sennosides/Docusate Sodium TABLET PO SCH (09:37)
--- NOTE | 2019-03-24 09:41 | Discharge Summary ---
Orders not resulted at time of discharge: Pending orders 03/22/19 12:00 Culture,Blood [BC] Stat 03/24/19 07:52 XR fluoroscopy <1 hr [XR] Routine 03/24/19 08:32 Cell Count w Diff, Body Fluid [BF] Routine Culture,Respiratory [RM] Routine Resp.Virus Panel,Body Fl Routine 03/24/19 08:35 AFB Culture, Respiratory [TB] Routine Fungal Culture [MYC] Routine Gram Stain [RM] Routine Cytology [PTH] Routine 03/24/19 08:36 AFB Culture, Respiratory [TB] Routine Culture,Respiratory [RM] Routine Fungal Culture [MYC] Routine Surgical Pathology [PTH] Routine 03/24/19 08:42 Cell Count w Diff, Body Fluid [BF] Routine Culture,Respiratory [RM] Routine Resp.Virus Panel,Body Fl Routine 03/24/19 08:43 AFB Culture, Respiratory [TB] Routine Fungal Culture [MYC] Routine Gram Stain [RM] Routine Date of Encounter: 03/24/19 Time of Encounter: 09:41 - Discharge Diagnosis (1) Acute respiratory failure with hypoxia Status: Acute (2) Community acquired pneumonia Status: Acute Qualifiers: Laterality: right Lung location: unspecified part of lung Qualified Code(s): J18.9 - Pneumonia, unspecified organism (3) Small cell lung cancer Status: Chronic (4) Hypertension Status: Acute Qualifiers: Hypertension type: essential hypertension Qualified Code(s): I10 - Essential (primary) hypertension (5) DVT prophylaxis Status: Acute Hospital course: Mr. Jensen is a 68 year old male - Time Spent with Patient Total time spent providing and/or coordinating discharge services: - Discharge Medications Prescriptions: No Action Pantoprazole Sodium [Protonix] 20 mg PO QAM Albuterol Sulfate [Albuterol Inhaler] 1 puff IH BID PRN #1 hfa.aer.ad PRN Reason: Shortness Of Breath Ranitidine HCl [Heartburn Relief] 150 mg PO DAILY #30 tablet predniSONE [PredniSONE] 10 mg PO DAILY #151 tablet Losartan/Hydrochlorothiazide [Losartan-Hctz 50-12.5 mg Tab] 1 tab PO DAILY PRN PRN Reason: SYSTOLIC BP > 140 raNITIdine HCl [Ranitidine HCl] 300 mg PO HS PRN PRN Reason: SEVERE HEARTBURN Home Medications: Pantoprazole Sodium [Protonix] 20 mg PO QAM 09/24/18 [History] Albuterol Sulfate [Albuterol Inhaler] 1 puff IH BID PRN #1 hfa.aer.ad 01/12/19 [Rx] Ranitidine HCl [Heartburn Relief] 150 mg PO DAILY #30 tablet 02/11/19 [Rx] predniSONE [PredniSONE] 10 mg PO DAILY #151 tablet 02/21/19 [Rx] Losartan/Hydrochlorothiazide [Losartan-Hctz 50-12.5 mg Tab] 1 tab PO DAILY PRN 03/22/19 [History] raNITIdine HCl [Ranitidine HCl] 300 mg PO HS PRN 03/22/19 [History] Allergies/Adverse Reactions: Allergy/AdvReac Type Severity Reaction Status Date / Time aspirin Allergy Anaphylaxis Verified 03/22/19 16:02 Date of admission: 03/22/19 14:53 Primary care physician: Wang Nunes Consults: 03/22/19 16:08 Consult to Nurse Navigator [CONS] Routine Comment: pneumonia 03/23/19 08:54 Consult to Pulmonology [CONS] Routine Consulting Provider: [facility] [place] Reason for Consult: Pt with recurrent/metastatic lung ca; sent from rad/onc yesterday for pneumonia with atypical imaging. Concern for PCP PNA. Pt recommended for bronchoscopy. Time Notified: 08:56 Call Completed: Yes - Constitutional Vitals: Temp Pulse Resp BP Pulse Ox 98.0 F 107 20 129/77 89 03/24/19 09:29 03/24/19 09:29 03/24/19 09:29 03/24/19 09:29 03/24/19 09:29 General appearance: Present: A&O X 3, pleasant, no acute distress - Patient Status Condition: Fair - Discharge Instructions Follow Up With: Wang Nunes [Primary Care Provider] -
[2019-03-24] MEDS: Levofloxacin 750 MG/150 ML 750 MG/150 ML BAG IVPB SCH (12:03)
[2019-03-24] MEDS ORDERED: *HR* Metoprolol 5 MG/5 ML VIAL IVP ONE (12:36)
--- NOTE | 2019-03-24 13:37 | Internal Med Progress Note ---
<Chris Manning - Last Filed: 03/24/19 14:12> Hospitalist Progress Note - Encounter Date of Encounter: 03/24/19 Time of Encounter: 14:12 - Exam Vitals: Temp Pulse Resp BP Pulse Ox 98.2 F 89 21 118/71 90 03/24/19 12:33 03/24/19 13:11 03/24/19 13:11 03/24/19 12:33 03/24/19 13:11 - Assessment and Plan (1) Community acquired pneumonia Current Visit: Yes Status: Acute (2) Small cell lung cancer Current Visit: Yes Status: Chronic (3) Hypertension Current Visit: Yes Status: Acute (4) Acute respiratory failure with hypoxia Current Visit: Yes Status: Acute (5) DVT prophylaxis Current Visit: Yes Status: Acute - Time Spent with Patient Total time spent is greater than 50% in coordination of care (as documented) at patient's floor/unit and/or counseling patient: Internal Medicine: Result - Labs CBC & Chem 7: 03/24/19 03:16 03/24/19 03:16 Labs: Short CBC 03/24/19 Range/Units 03:16 WBC 7.5 (4.3-11.1) K/mcL Hgb 12.8 L (12.9-16.9) g/dL Hct 40.2 (37.5-50.1) % Plt Count 129 L (140-400) K/mcL Neutrophils # 6.2 (1.6-8.9) K/mcL BMP 03/24/19 03:16 Sodium 140 Potassium 4.6 Chloride 103 Carbon Dioxide 28 BUN 23 Creatinine 1.13 Glucose 160 H Calcium 9.8 - Impressions Impressions Chest X-Ray 03/24/19 07:52 IMPRESSION: Redemonstration of extensive multifocal airspace consolidation and interstitial thickening. No pneumothorax identified. D/ / Brain Smith MD / Brain Smith MD Interpreting Provider: Brain Smith MD Consult Discharge Plan - Plan Referrals: Wang Nunes [Primary Care Provider] - - Attending Attestation I saw evaluated and examined this patient and my medical decision-making was reviewed with the Resident Physician, Margaret Serrano. I agree with the documented findings, disposition and treatment plan as described except to any changes set forth below. We independently had [id number] contact with the patient. Patient underwent bronchoscopy earlier today. Postprocedure he initially felt better but since then his been having increased exertional dyspnea even with minimal exertion. General: Patient is alert, mild distress, oriented x 3 ENT: Mucous membranes moist Respiratory: Coarse breath sounds bilaterally, using accessory muscles when he stands up Cardiovascular: Tachycardic. s1 and s2 normal No clicks, rubs, gallops, or murmurs. No pedal edema Abdomen: Abdomen is soft, nontender. Bowel sounds are present Musculoskeletal: Spontaneously moving all extremities Skin: warm, dry, intact. Neuro: Alert oriented x 3 normal cranial nerves, no focal deficits Acute respiratory failure with hypoxia: Due to bilateral pneumonia. Sputum culture not done due to high quantity of squamous epithelial cells. Blood cultures are negative but bronchoscopy did show right upper lobe and right lower lobe pneumonia. Continue O2 supplementation. Incentive spirometry. Moderate risk for complications. Tachycardia: Most likely due to frequent nebulizer treatments and hypoxia. We will monitor with telemetry. Get EKG. We will also obtain 2-D echocardiogram. Pneumonia: Bacterial. MRSA screen negative. Cultures are so far negative. Continue Levaquin. Strep and legionella antigens are negative. MRSA screen is negative. Small cell lung cancer: Pulmonology consult appreciated. Bronchoscopy done [facility] ay. Patient did have lots of mucus in his airways which were suctioned. Outpatient follow-up with oncology Essential hypertension: Blood pressure is well controlled on lisinopril. DVT prophylaxis with subcutaneous heparin <Margaret Serrano N - Last Filed: 03/24/19 16:30> Hospitalist Progress Note - Encounter Date of Encounter: 03/24/19 Time of Encounter: 13:37 - Subjective Interval History: Patient was seen and evaluated at the bedside this morning immediately after returning from bronchoscopy. At that time, he voiced that he was breathing much better, and that he felt less short of breath. Patient states that he is eager to return home, and would like to do so today if possible. Nursing staff reports no significant overnight events. - Exam Vitals: Temp Pulse Resp BP Pulse Ox 98.2 F 89 21 118/71 90 03/24/19 12:33 03/24/19 13:11 03/24/19 13:11 03/24/19 12:33 03/24/19 13:11 Exam: GENERAL: Well-developed, well-nourished adult male in no acute distress. HEENT: Atraumatic and normocephalic. CARDIOVASCULAR: Regular rate and rhythm. S1 and S2 present. No murmurs, gallops, or rubs. RESPIRATORY: Improved breath sounds bilaterally without wheezes, rales, or rhonchi.. Chest rises and falls symmetrically without accessory muscle use. GASTROINTESTINAL: Abdomen is soft, nontender, nondistended. EXTREMITIES: No clubbing, cyanosis, or edema. SKIN: Warm, dry, and intact. NEUROLOGIC: Alert and oriented x3. Patient is cooperative with exam and answers questions appropriately. No apparent focal deficits. PSYCHIATRIC: Appropriate mood and affect. - Assessment and Plan (1) Acute respiratory failure with hypoxia Current Visit: Yes Status: Acute Assessment and Plan: Secondary to pneumonia. Patient did report improved shortness of breath immediately after bronchoscopy; however, nursing staff reported that he was remaining repeatedly dropping into the 80s on 4 L of supplemental oxygen via nasal cannula. - Continue antimicrobial treatment and plan as detailed below for community- acquired pneumonia. - Await results of biopsies and microbial specimens obtained during bronchoscopy. Appreciate pulmonology recommendations regarding management of this problem. - Continuous pulse oximetry, with continued use of supplemental oxygen to maintain appropriate saturation. - Echocardiogram pending to evaluate for potential CHF versus pulmonary hypertension. (2) Community acquired pneumonia Current Visit: Yes Status: Acute Assessment and Plan: Patient presented with progressive shortness of breath and cough, which he stat es has been productive of yellow tinged sputum. CTA of the chest performed on 03/22/2019 did demonstrate diffuse interstitial opacities with possible mild groundglass opacities in subpleural and basilar distribution. Per patient's oncologist, concern for possible PCP pneumonia as he has been on a prolonged course of steroids. - Continue Levaquin 750mg daily. Patient has been transitioned to oral therapypatient is likely discharge tomorrow. - Discontinue IV Solu-Medrol; start prednisone 40 mg daily. - Continue bronchodilators, including duo nebs Q4H scheduled and albuterol Q2H PRN. - Oxygen qualification test ordered, as patient will likely require supplemental oxygen to go home with. (3) Small cell lung cancer Current Visit: Yes Status: Chronic Assessment and Plan: Patient has a history of small cell lung cancer S/P chemotherapy and radiation. He is followed by oncology. CTA of the chest performed on 03/22/2019 demonstrated new bilateral pulmonary nodules predominantly subpleural in location, the largest of which was found to measure 14 x 10 mm in the right upper lobe. Per radiology, differential includes atypical infection versus recurrent/metastatic disease. Patient was also noted to have interstitial opacities with appearance most suggestive of NSIP or early UIP without honeycombing, though drug induced interstitial lung disease was noted to have a similar appearance. - Continue antimicrobial treatment as detailed above. - Recommend close outpatient follow-up with oncology for ongoing evaluation and management. (4) Hypertension Current Visit: Yes Status: Acute Assessment and Plan: Patient reports history of hypertension and not on any treatment. Blood pressure was noted to be elevated at the time of admission, prompting initiation of therapy with lisinopril 10 mg. - Continue current medication regimen and monitoring of blood pressures. (5) DVT prophylaxis Current Visit: Yes Status: Acute Assessment and Plan: - Heparin 5000units SQ Q12H. - Time Spent with Patient Total time spent is greater than 50% in coordination of care (as documented) at patient's floor/unit and/or counseling patient: Internal Medicine: Result - Labs CBC & Chem 7: 03/24/19 03:16 03/24/19 03:16 Labs: Short CBC 03/24/19 Range/Units 03:16 WBC 7.5 (4.3-11.1) K/mcL Hgb 12.8 L (12.9-16.9) g/dL Hct 40.2 (37.5-50.1) % Plt Count 129 L (140-400) K/mcL Neutrophils # 6.2 (1.6-8.9) K/mcL BMP 03/24/19 03:16 Sodium 140 Potassium 4.6 Chloride 103 Carbon Dioxide 28 BUN 23 Creatinine 1.13 Glucose 160 H Calcium 9.8 - Impressions Impressions Chest X-Ray 03/24/19 07:52 IMPRESSION: Redemonstration of extensive multifocal airspace consolidation and interstitial thickening. No pneumothorax identified. D/ / Brain Smith MD / Brain Smith MD Interpreting Provider: Brain Smith MD _ <Sr Kerriujan - Last Filed: 03/24/19 14:12> (1) Community acquired pneumonia Qualifiers: Laterality: right Lung location: unspecified part of lung Qualified Code(s): J18.9 - Pneumonia, unspecified organism (3) Hypertension Qualifiers: Hypertension type: essential hypertension Qualified Code(s): I10 - Essential (primary) hypertension <Margaret Serrano - Last Filed: 03/24/19 16:30> (2) Community acquired pneumonia Qualifiers: Laterality: right Lung location: unspecified part of lung Qualified Code(s): J18.9 - Pneumonia, unspecified organism (4) Hypertension Qualifiers: Hypertension type: essential hypertension Qualified Code(s): I10 - Essential (primary) hypertension
[2019-03-24 15:52] LABS: Volume of Body Fluid 27 mL
[2019-03-24 15:52] LABS: Volume of Body Fluid 15 mL
[2019-03-24 17:00] LABS: Appearance of Body Fluid Clear (Clear)
[2019-03-24 17:04] LABS: Appearance of Body Fluid Slightly Hazy (Clear)
[2019-03-25] MEDS: *HR* OxyCODONE Immed Rel 5 MG TABLET PO PRN ×3 (00:31→18:27)
[2019-03-25 01:57] LABS: Basophils % 0.1 %; Hematocrit 39.7 % (37.5-50.1); Hemoglobin 12.8 g/dL (12.9-16.9); Immature Granulocytes % 0.4 % (0-4); Lymphocytes # 1.1 K/mcL (0.6-4.6); Lymphocytes % 13.4 %; Mean Corpuscular HGB Conc 32.2 g/dL (31.6-35.5); Mean Corpuscular Hemoglobin 29.6 pg (28.0-33.3); Mean Corpuscular Volume 91.7 fL (83.0-100.0); Mean Platelet Volume 9.4 fL (9.4-12.4); Monocytes # 0.4 K/mcL (0.0-1.3); Monocytes % 5.4 %; Neutrophils # 6.4 K/mcL (1.6-8.9); Platelet Count 127 K/mcL (140-400); Red Blood Count 4.33 M/mcL (4.19-5.50); Red Cell Distribution Width 15.5 % (11.5-14.5); Segmented Neutrophils % 80.7 %
[2019-03-25 02:17] LABS: BUN/Creatinine Ratio 21 (6-26); Blood Urea Nitrogen 23 mg/dL (8-23); Calcium 9.6 mg/dL (8.6-10.3); Carbon Dioxide 30 mEq/L (23-29); Chloride 105 mEq/L (98-107); Glucose 148 mg/dL (70-105); Osmolality,Calculated 296 (280-300); Potassium 4.1 mEq/L (3.5-5.1); Sodium 140 mEq/L (136-145); eGFR For Non-African Americans > 60 (> 60)
[2019-03-25] MEDS ORDERED: *HR* Metoprolol 5 MG/5 ML VIAL IVP ONE (03:55)
[2019-03-25] MEDS: Levalbuterol Neb 0.63 MG/3 ML IH SCH ×4 (04:01→22:06)
[2019-03-25] MEDS: *HR* Heparin 5,000 UNIT/ML VIAL SQ SCH (05:30)
[2019-03-25] MEDS: Sennosides/Docusate Sodium TABLET PO SCH (07:55)
--- NOTE | 2019-03-25 08:29 | Internal Med Progress Note ---
<JacobrigoChris - Last Filed: 03/25/19 12:39> Hospitalist Progress Note - Encounter Date of Encounter: 03/25/19 Time of Encounter: 10:00 - Exam Vitals: Temp Pulse Resp BP Pulse Ox 98.8 F 115 18 127/79 92 03/25/19 12:15 03/25/19 12:15 03/25/19 12:15 03/25/19 12:15 03/25/19 12:15 - Assessment and Plan (1) Community acquired pneumonia Current Visit: Yes Status: Acute (2) Small cell lung cancer Current Visit: Yes Status: Chronic (3) Hypertension Current Visit: Yes Status: Acute (4) Acute respiratory failure with hypoxia Current Visit: Yes Status: Acute (5) DVT prophylaxis Current Visit: Yes Status: Acute - Time Spent with Patient Total time spent is greater than 50% in coordination of care (as documented) at patient's floor/unit and/or counseling patient: Internal Medicine: Result - Labs CBC & Chem 7: 03/25/19 01:42 03/25/19 01:42 Labs: Short CBC 03/25/19 Range/Units 01:42 WBC 7.9 (4.3-11.1) K/mcL Hgb 12.8 L (12.9-16.9) g/dL Hct 39.7 (37.5-50.1) % Plt Count 127 L (140-400) K/mcL Neutrophils # 6.4 (1.6-8.9) K/mcL BMP 03/25/19 01:42 Sodium 140 Potassium 4.1 Chloride 105 Carbon Dioxide 30 H BUN 23 Creatinine 1.08 Glucose 148 H Calcium 9.6 - ABG Interpretation ABG results: ABG ABG pH 7.42 pH Units (7.32-7.45) 03/25/19 12:05 ABG pCO2 46 mmHg (35-45) H 03/25/19 12:05 ABG pO2 76 mmHg (85-104) L 03/25/19 12:05 ABG O2 Saturation 95 % (95-98) 03/25/19 12:05 - Impressions Impressions Echocardiogram 03/24/19 14:34 Impressions: Sinus tachycardia. LVEF 70%. Indeterminate diastolic function. Normal right ventricular structure and function. No significant valvular dysfunction. No pulmonary hypertension. Left Ventricular Wall Motion: Rest Echo Findings The apex, apical inferior, mid inferior, basal inferior, apical anterior, mid anterior, basal anterior, apical septal, mid inferior septal, basal inferior septal, apical lateral, mid anterior lateral, basal anterior lateral, mid anterior septal, mid inferior lateral, basal anterior septal and basal inferior lateral metcalf were hyperkinetic. Findings: Study Quality * Technically challenging due to clinical status. ECG Findings * Sinus tachycardia. Left Ventricle * LVEF 70%. * LV chamber size and wall thickness measurements are normal. * Indeterminate diastolic function. Right Ventricle * Normal right ventricular structure and function. Left Atrium * Normal left atrial size. Right Atrium * Normal right atrial size. Aortic Valve * No aortic regurgitation. * Trileaflet aortic valve. * No aortic stenosis. Mitral Valve * No mitral regurgitation. * Mitral valve not well visualized. * No mitral stenosis. Tricuspid Valve * Tricuspid valve not well visualized. * Trace tricuspid regurgitation. Pulmonic Valve * Pulmonic valve is not well visualized. * No pulmonic stenosis. * No pulmonic regurgitation. Pulmonary Artery * Pulmonary artery not well visualized. Aorta * Normally sized aortic root. Pericardium * There is no pericardial effusion present. Interatrial Septum * No evidence of PFO by color Doppler. IVC * The IVC is not well evaluated. Chest X-Ray 03/25/19 08:25 IMPRESSION: Patchy airspace opacities bilaterally, may be related to pulmonary edema versus pneumonia, likely improved in the left lung apex. Low lung volumes. D/ / Alec Rider MD / Alec Rider MD Interpreting Provider: Alec Rider MD Consult Discharge Plan - Plan Referrals: Wang Nunes [Primary Care Provider] - - Attending Attestation I saw evaluated and examined this patient and my medical decision-making was reviewed with the Resident Physician, Margaret Serrano. I agree with the documented findings, disposition and treatment plan as described except to any changes set forth below. We independently had [id number] contact with the patient. Patient in significant respiratory distress. Hypoxia worsened overnight and patient was placed on 10 L O2 supplementation via mask. Patient remains significantly dyspneic with dyspnea worsening with minimal exertion. Denies any chest pain or palpitations. General: Patient is alert, mild distress, oriented x 3 ENT: Mucous membranes moist Respiratory: Coarse breath sounds bilaterally, with dry crackles at both bases Cardiovascular: Tachycardic. s1 and s2 normal No clicks, rubs, gallops, or murmurs. No pedal edema Abdomen: Abdomen is soft, nontender. Bowel sounds are present Musculoskeletal: Spontaneously moving all extremities Skin: warm, dry, intact. Neuro: Alert oriented x 3 normal cranial nerves, no focal deficits Acute respiratory failure with hypoxia: Due to bilateral pneumonia. Patient currently receiving IV antibiotics. Patient also has persistent tachycardia and his hypoxia is worsening. Concern for pulmonary embolism. We will obtain CT angiogram of the chest. Stat. Continue O2 supplementation. Transferred to stepdown unit. We rehydrate risk for complications. Discussed with pulmonology. Recommended intravenous steroids. Sinus Tachycardia: Most likely due to frequent nebulizer treatments and hypoxia but will need to rule out PE. Echocardiogram shows EF of 70% with no pulmonary hypertension. Pneumonia: Most likely atypical pneumonia. Continue Levaquin. Small cell lung cancer: Bronchoscopy completed yesterday. Chest x-ray shows improved aeration in the upper lobes. However patient remains hypoxic. Management as above. Follow-up outpatient with the Rad Onc after discharge. Essential hypertension: Blood pressure remains well controlled. DVT prophylaxis with subcutaneous heparin <Margaret Serrano N - Last Filed: 03/25/19 19:00> Hospitalist Progress Note - Encounter Date of Encounter: 03/25/19 Time of Encounter: 08:29 - Subjective Interval History: Mr. Jensen was seen and evaluated the bedside. Overnight, patient was noted to have worsening hypoxia, crit wearing increased and supplemental oxygen. Upon initial evaluation this morning, patient was requiring 10 L via nasal cannula to maintain oxygen saturation in the high 80s; however, patient was noted to decrease to the mid 80s with conversation. Patient reports feeling very anxious, and states that he was unable to sleep last night due to the severity of his shortness of breath. He reports that he dropped down into the 70s with significant movement or positional changes. Patient does report some improvement in symptoms with use of nebulized breathing treatments. He denies any chest pain or increased sputum production. He does report that he has been intermittently diaphoretic; review of vital signs shows maximum temperature of 100.1 this morning. - Exam Vitals: Temp Pulse Resp BP Pulse Ox 100.1 F H 127 22 142/79 90 03/25/19 07:39 03/25/19 07:39 03/25/19 07:39 03/25/19 07:39 03/25/19 07:39 Exam: GENERAL: Well-developed, well-nourished adult male in moderate distress secondary to shortness of breath. He is dyspneic during conversation, and does appear to be anxious. HEENT: Atraumatic and normocephalic. CARDIOVASCULAR: Regular rate and rhythm. S1 and S2 present. No murmurs, gallops, or rubs. RESPIRATORY: Equal air movement bilaterally, with fine crackles appreciated in basal posterior lung summers. Chest rises and falls symmetrically without accessory muscle use. GASTROINTESTINAL: Abdomen is soft, nontender, nondistended. EXTREMITIES: No clubbing, cyanosis, or edema. SKIN: Warm, dry, and intact. NEUROLOGIC: Alert and oriented x3. Patient is cooperative with exam and answers questions appropriately. No apparent focal deficits. PSYCHIATRIC: Patient is anxious appearing secondary to shortness of breath. - Assessment and Plan (1) Acute respiratory failure with hypoxia Current Visit: Yes Status: Acute Assessment and Plan: Secondary to pneumonia in setting of underlying small cell lung cancer with metastasis. Patient did report improved shortness of breath immediately after bronchoscopy; however, nursing staff reported that he was remaining repeatedly dropping into the 80s on 4 L of supplemental oxygen via nasal cannula. Echocardiogram was ordered to evaluate for potential CHF versus pulmonary hypertension. Study was performed on 03/24/2019, and demonstrated LVEF 70%, with no significant valvular dysfunction or pulmonary hypertension. Overnight, patient was noted to have worsening shortness of breath, requiring as much as 13 L/m to maintain oxygen saturation in the high 80s. Patient was also noted to be persistently tachycardic. On evaluation this morning, patient was noted to be dyspneic with conversation, mildly diaphoretic, and anxious appearing. Repeat CTA of the chest was performed, which demonstrated a probable subsegmental pulmonary embolus in the left lower lobe. Patient was also noted to have worsening bilateral groundglass attenuation with interlobular septal thickening when compared to study on 03/22/2019. Per radiologist's report, this is likely due to pulmonary edema in the acute setting. - Continue antimicrobial treatment and plan as detailed below for community- acquired pneumonia. - Discontinue prednisone and: Start IV Solu-Medrol 80 mg IVP Q6H. - Start Lovenox 100mg SQ Q12H. - Lasix 40mg IVP ordered for pulmonary edema. Monitoring record strict I's and O's. - Await results of biopsies and microbial specimens obtained during bronchoscopy. Appreciate pulmonology recommendations regarding management of this problem. - Continuous pulse oximetry, with continued use of supplemental oxygen to maintainoxygen saturation approximately 92%. - Start hydroxyzine 25mg TID PRN anxiety. (2) Goals of care, counseling/discussion Current Visit: Yes Status: Acute Assessment and Plan: Due to significant change in oxygen requirement, I did have a prolonged conversation with the patient about potential escalation of respiratory support, potentially up to intubation. Patient states that he is comfortable with BiPAP if needed; however, he is unsure of whether or not he would want to be intubated. Patient voices that he does not think that he would not want to continue living attached machine or in his current state if it was not going to improve. Patient was educated about CODE STATUS, and the differences between full code versus DNR comfort care arrest versus DNR comfort care. Patient was also educated on risks and benefits of intubation, with consideration that he would likely be a more difficult extubation in light of his underlying malignancy. Patient voiced that he wanted to further discuss things with his and sister this evening. Patient was encouraged to do this, as well as make his wishes known to his family in the event that he is unable to make decisions for himself. Patient and his voice understanding, and all questions were answered. Plan for further discussion with the patient and his tomorrow regarding further goals of care decisions. (3) Pulmonary embolism Current Visit: Yes Status: Acute Assessment and Plan: - Plan as above for acute respiratory failure. (4) Community acquired pneumonia Current Visit: Yes Status: Acute Assessment and Plan: Patient presented with progressive shortness of breath and cough, which he states has been productive of yellow tinged sputum. CTA of the chest performed on 03/22/2019 did demonstrate diffuse interstitial opacities with possible mild groundglass opacities in subpleural and basilar distribution. Per patient's oncologist, concern for possible PCP pneumonia as he has been on a prolonged course of steroids. - Continue Levaquin 750mg; currently day 4 of treatment. Anticipate total antibiotic course of 5-7 days. - Continue bronchodilators, including duo nebs Q4H scheduled and albuterol Q2H PRN. - Further plan as above for acute respiratory failure. (5) Small cell lung cancer Current Visit: Yes Status: Chronic Assessment and Plan: Patient has a history of small cell lung cancer S/P chemotherapy and radiation. He is followed by oncology. CTA of the chest performed on 03/22/2019 demonstrated new bilateral pulmonary nodules predominantly subpleural in location, the largest of which was found to measure 14 x 10 mm in the right upper lobe. Per radiology, differential includes atypical infection versus recurrent/metastatic disease. Patient was also noted to have interstitial opacities with appearance most suggestive of NSIP or early UIP without honeycombing, though drug induced interstitial lung disease was n oted to have a similar appearance. Repeat CTA performed on 03/25/2019 demonstrated stable metastatic pulmonary nodules throughout the lungs was stable to minimal increase in size of mediastinal and right hilar adenopathy. Patient was also noted to have interval increase in size of periceliac lymph node measuring 4.1 x 3.0 cm in the upper abdomen compatible with metastatic disease. - Continue antimicrobial treatment as detailed above. - Appreciated oncology evaluation and recommendations regarding this problem. (6) Hypertension Current Visit: Yes Status: Acute Assessment and Plan: Patient reports history of hypertension and not on any treatment. Blood pressure was noted to be elevated at the time of admission, prompting initiation of therapy with lisinopril 10 mg. - Continue current medication regimen and monitoring of blood pressures. (7) DVT prophylaxis Current Visit: Yes Status: Acute Assessment and Plan: - Lovenox 100mg SQ BID. - Time Spent with Patient Total time spent is greater than 50% in coordination of care (as documented) at patient's floor/unit and/or counseling patient: Internal Medicine: Result - Labs CBC & Chem 7: 03/25/19 01:42 03/25/19 01:42 Labs: Short CBC 03/25/19 Range/Units 01:42 WBC 7.9 (4.3-11.1) K/mcL Hgb 12.8 L (12.9-16.9) g/dL Hct 39.7 (37.5-50.1) % Plt Count 127 L (140-400) K/mcL Neutrophils # 6.4 (1.6-8.9) K/mcL BMP 03/25/19 01:42 Sodium 140 Potassium 4.1 Chloride 105 Carbon Dioxide 30 H BUN 23 Creatinine 1.08 Glucose 148 H Calcium 9.6 - Impressions Impressions Chest X-Ray 03/24/19 07:52 IMPRESSION: Redemonstration of extensive multifocal airspace consolidation and interstitial thickening. No pneumothorax identified. D/ / Brain Smith MD / Brain Smith MD Interpreting Provider: Brain Smith MD <Chris Manning - Last Filed: 03/25/19 12:39> (1) Community acquired pneumonia Qualifiers: Laterality: right Lung location: unspecified part of lung Qualified Code(s): J18.9 - Pneumonia, unspecified organism (3) Hypertension Qualifiers: Hypertension type: essential hypertension Qualified Code(s): I10 - Essential (primary) hypertension <Margaret Serrano - Last Filed: 03/25/19 19:00> (3) Pulmonary embolism Qualifiers: Pulmonary embolism type: other Chronicity: unspecified Acute cor pulmonale presence: without acute cor pulmonale Qualified Code(s): I26.99 - Other pulmonary embolism without acute cor pulmonale (4) Community acquired pneumonia Qualifiers: Laterality: right Lung location: unspecified part of lung Qualified Code(s): J18.9 - Pneumonia, unspecified organism (6) Hypertension Qualifiers: Hypertension type: essential hypertension Qualified Code(s): I10 - Essential (primary) hypertension
[2019-03-25] MEDS ORDERED: predniSONE 20 MG TABLET PO SCH (09:00)
[2019-03-25] MEDS ORDERED: levoFLOXacin 750 MG TABLET PO SCH (09:00)
[2019-03-25] MEDS ORDERED: Isovue-370 500 ML BOTTLE IVP ONE (11:31)
[2019-03-25] MEDS ORDERED: MethylPREDNISolone 40 MG/ML VIAL IVP SCH (12:00)
[2019-03-25 12:10] LABS: ABG Base Excess 4 mEq/L (-2 to 3); ABG HCO3 30 mEq/L (21-27); ABG Oxygen Saturation 95 % (95-98); ABG PCO2 46 mmHg (35-45); ABG PH 7.42 pH Units (7.32-7.45); ABG PO2 76 mmHg (85-104); ABG TCO2 31 mEq/L (20-26)
--- NOTE | 2019-03-25 13:08 | Pulmonology Progress Note ---
Date of Encounter: 03/25/19 Time of Encounter: 10:15 Assessment and Plan (1) Acute respiratory failure with hypoxia Current Visit: Yes Status: Acute Overall his condition is worsening and he felt better after he had bronchoscopy yesterday and now is more hypoxic. I have called pathology around here today and explained to them that we need result of biopsy as soon as possible and BAL shows evidence of acute inflammation which could be related to radiation. Systemic steroid dose has increased and discussed this with primary team. CT chest was done with evidence of probable pulmonary embolism, however with his lung cancer it will be safer to have him on anticoagulation and also diuresis as much as tolerated. Needs to continue follow-up on the result of bronchoscopy and I have explained this to the patient and his family at the bedside. I feel overall prognosis is poor especially with his CT chest findings. (2) Small cell lung cancer Current Visit: Yes Status: Chronic Subjective Principal diagnosis: Dyspnea Interval history: Patient is having more dyspnea and he is more hypoxic. He stated he felt much better after bronchoscopy, however he is having more trouble breathing and CT chest was done with concerning findings. Objective PUL Vital signs: Last Vital Signs Temp 98.8 F 03/25/19 12:15 Pulse 115 03/25/19 12:15 Resp 18 03/25/19 12:15 BP 127/79 03/25/19 12:15 Pulse Ox 92 03/25/19 12:15 General appearance: appears uncomfortable Eyes: nonicteric ENT: oropharynx moist Neck: supple Effort: mildly labored Auscultation: bilateral: rales Percussion: bilateral: not dull Cardiovascular: regular rate and rhythm Gastrointestinal: normoactive bowel sounds, non-distended Extremities: no cyanosis normal mental status, non-focal exam mood appropriate Results - Laboratory Findings CBC and BMP: 03/25/19 01:42 03/25/19 01:42 ABG ABG pH 7.42 pH Units (7.32-7.45) 03/25/19 12:05 ABG pCO2 46 mmHg (35-45) H 03/25/19 12:05 ABG pO2 76 mmHg (85-104) L 03/25/19 12:05 ABG O2 Saturation 95 % (95-98) 03/25/19 12:05 Abnormal lab findings: Abnormal lab results Hgb 12.8 g/dL (12.9-16.9) L 03/25/19 01:42 RDW 15.5 % (11.5-14.5) H 03/25/19 01:42 Plt Count 127 K/mcL (140-400) L 03/25/19 01:42 ABG pCO2 46 mmHg (35-45) H 03/25/19 12:05 ABG pO2 76 mmHg (85-104) L 03/25/19 12:05 ABG HCO3 30 mEq/L (21-27) H 03/25/19 12:05 ABG Total CO2 31 mEq/L (20-26) H 03/25/19 12:05 ABG Base Excess 4 mEq/L (-2 to 3) H 03/25/19 12:05 Carbon Dioxide 30 mEq/L (23-29) H 03/25/19 01:42 BUN 24 mg/dL (8-23) H 03/23/19 03:59 Glucose 148 mg/dL (70-105) H 03/25/19 01:42 POC Glucose 112 mg/dL (70-99) H 03/24/19 06:13 Fluid Appearance Slightly Hazy (Clear) A 03/24/19 08:07 - Microbiology Findings Microbiology Findings: Microbiology, Last 48 Hours 03/24/19 08:13 Respiratory Culture - Preliminary Right Lower Lobe Lung 03/24/19 08:08 Respiratory Culture - Preliminary Right Upper Lobe Lung 03/24/19 08:07 Respiratory Culture - Preliminary Right Lower Lobe Lung - Diagnostic Findings CT scan - chest: report reviewed, image reviewed - Clinical Findings Intake & Output: Intake & Output 03/24/19 03/25/19 03/25/19 23:59 07:59 15:59 Intake Total 350 / 350 0 / 350 Output Total 0 / 550 550 / 550 Balance 350 / -200 -550 / -200 Consult Discharge Plan - Plan Referrals: Wang Nunes [Primary Care Provider] -
[2019-03-25] MEDS ORDERED: Furosemide 40 MG/4 ML VIAL IVP ONE ×2 (13:41→13:42)
[2019-03-25] MEDS ORDERED: Acetaminophen 325 MG TABLET PO PRN (16:03)
[2019-03-25] MEDS ORDERED: Ondansetron 4 MG/2 ML VIAL IVP PRN (16:03)
[2019-03-25] MEDS ORDERED: Albuterol 2.5 MG/3 ML NEBULIZER IH PRN (16:03)
[2019-03-25] MEDS ORDERED: Naloxone 0.4 MG/ML INJ IVP PRN (16:03)
--- NOTE | 2019-03-25 17:05 | Oncology Inp Consult Note ---
Date of Encounter: 03/24/19 Time of Encounter: 12:00 Assessment and Plan (1) Small cell lung cancer Status: Chronic Assessment and plan: Small cell lung cancer, on 07/28/2018 he started chemotherapy with cisplatin etoposide completed 4 cycles, with concurrent radiation therapy. Patient for prophylactic cranial radiation. He developed subsequent pneumonitis symptoms, status post treatment with antibiotics and steroid courses, hospitalized with worsening cough shortness of breath. Imaging findings reviewed additional lung nodules suspicious for infection/recurrence. He is on levofloxacin, pending pulmonary culture/path results. Due to worsening shortness of breath at today a CTA was obtained findings reviewed these are not discussed with patient yet. He is also started on anticoagulation for possible LLsubsegmental pulmonary embolism. He has desaturation with min exertion and needing continous O2 supply. Imaging/clinical findings suspicious for recurrenvce-lymphangitic spread of malignancy Will discuss findings/goals of care with patient. Findings reviewed with attending physician/rad onc Hx CLL on LN bx. Blood counts stable. Not needed treatment Will follow - Data of Consult Requesting Physician: Chris Manning MD Primary Care Provider: Wang Nunes - Consult Narrative Reason for consult: small cell lung cancer History of present illness: 68-year-old male with medical history significant for hypertension, ex-smoker smoked a 1-1/2 packs per day for over 2 years quit in 1996? Quit alcohol use, denies any exposure to secondhand smoking, patient underwent endoscopy upper GI for gastric esophageal reflux disease, during the exam he was noted to have abnormal swelling in the esophagus. He further underwent a CT imaging ordered by gastroenterology. Patient underwent a CT scan May 2018 that showed right lung nodule measuring 2 x 2.5 cm in size, subcarinal prominent lymph nodes. He underwent a bronchoscopy and biopsy of subcarinal lymph node which shows small cell lung cancer with a background CLL. He does not carry a prior diagnosis of CLL his white cell count of 16.2 lymphocytes 10.5. PET imaging shows uptake in the subcarinal lymphadenopathy, right lung nodule, hilar adenopathy. MRI brain was negative for metastatic disease. He received cycle 1 of chemotherapy July 2018. s/p C2 with radiation therapy, C3 around -09/15/18 (delayed due to neutropenia) He completed concurrent chemoradiation in September 2018. 02/11/19--CT imaging scans reviewed post radiation changes in the right infrahilar region otherwise no progressive disease. He was Rx for pneumonitis with steroids. Due t worsening SOB pt is hospitalized. Due to suspicion for infection/progressive malignancy--underwent bronch procedure. Bx results pending Patient is short of breath even with minimal exertion. He is requiring continuous oxygen supply he is tachycardic since hospitalization. He is continued on IV antibiotics. Patient reports some improvement in breathing after the bronchial procedure. He denies any new discomfort he has some chest tightness. Past Med Surg Social Fam HX - Past Medical History Medical history: arthritis, cancer, hyperlipidemia, hypertension, migraine Additional medical history: lung cancer, cervical ddd,colon polyps Psychiatric history: no psych history - Past Surgical History Surgical History: no surgical history - Social History Smoking Status: Former smoker Smokeless Tobacco Status: No Alcohol use: none Drug use: none Medications and Allergies Pantoprazole Sodium [Protonix] 20 mg PO QAM 09/24/18 [History] Albuterol Sulfate [Albuterol Inhaler] 1 puff IH BID PRN #1 [id number] 01/12/19 [Rx] Ranitidine HCl [Heartburn Relief] 150 mg PO DAILY #30 tablet 02/11/19 [Rx] predniSONE [PredniSONE] 10 mg PO DAILY #151 tablet 02/21/19 [Rx] Losartan/Hydrochlorothiazide [Losartan-Hctz 50-12.5 mg Tab] 1 tab PO DAILY PRN 03/22/19 [History] raNITIdine HCl [Ranitidine HCl] 300 mg PO HS PRN 03/22/19 [History] Allergy/AdvReac Type Severity Reaction Status Date / Time aspirin Allergy Anaphylaxis Verified 03/22/19 16:02 Constitutional: Present: lethargy Additional comments: no chest pain Respiratory: Present: cough, dyspnea on exertion Additional comments: no diarrhea nausea Additional comments: no joint aches Oncology - Exam - Constitutional General appearance: average body habitus, mild distress - Head Head exam: Present: atraumatic, normal inspection - Eye Eye exam: Present: sclera anicteric - ENT ENT exam: Present: mucous membranes moist - Neck Neck exam: Present: full ROM - Respiratory Respiratory exam: Present: accessory muscle use, decreased breath sounds, CTAB - Cardiovascular Cardiovascular exam: Present: +S1, +S2, tachycardia - GI/Abdominal GI/Abdominal exam: Present: normal bowel sounds, soft - Extremities Exam Extremities exam: Present: normal inspection - Neurological Exam Neurological exam: Present: alert, CN II-XII intact, oriented X3, no focal deficits - Psychiatric Psychiatric exam: Present: normal affect Consult Discharge Plan - Plan Referrals: Wang Nunes [Primary Care Provider] - Inpatient Charges Provider: Dr. Denis Dinh Consult - Inpatient: [id number]
[2019-03-25] MEDS ORDERED: *HR* Enoxaparin 100 MG/ML SYRINGE SQ SCH (18:00)
[2019-03-25] MEDS: MethylPREDNISolone 40 MG/ML VIAL IVP SCH ×2 (18:27→23:47)
[2019-03-25] MEDS: *HR* Enoxaparin 100 MG/ML SYRINGE SQ SCH (18:27)
[2019-03-26] MEDS: Levalbuterol Neb 0.63 MG/3 ML IH SCH ×4 (03:55→22:08)
[2019-03-26] MEDS: *HR* Enoxaparin 100 MG/ML SYRINGE SQ SCH ×2 (05:52→18:17)
[2019-03-26] MEDS: MethylPREDNISolone 40 MG/ML VIAL IVP SCH ×3 (05:53→18:17)
[2019-03-26] MEDS ORDERED: Furosemide 40 MG/4 ML VIAL IVP ONE (08:55)
[2019-03-26] MEDS ORDERED: Sennosides/Docusate Sodium TABLET PO SCH (09:00)
[2019-03-26] MEDS ORDERED: *HR* Metoprolol 5 MG/5 ML VIAL IVP ONE (09:01)
--- NOTE | 2019-03-26 09:15 | Internal Med Progress Note ---
<Margaret Serrano N - Last Filed: 03/26/19 13:08> Hospitalist Progress Note - Encounter Date of Encounter: 03/26/19 Time of Encounter: 09:14 - Subjective Interval History: Mr. Jensen was seen and evaluated at the bedside. He reports significant improvement in his shortness of breath, and states that he has been doing much better since receiving IV Lasix yesterday. He reports that he was able to sleep last night, did not feel like he was constantly struggling to get enough air. He reports that he has had increased sputum production overnight; however, his nonproductive coughing has much improved, and he is no longer having coughing spells triggered by deep breathing. He denies any fevers, chills, chest pain, or palpitations. Nursing staff reports no significant overnight events. - Exam Vitals: Temp Pulse Resp BP Pulse Ox 97.8 F 121 22 150/85 88 03/26/19 07:36 03/26/19 07:36 03/26/19 07:36 03/26/19 07:36 03/26/19 07:36 Exam: GENERAL: Well-developed, well-nourished adult male resting in bed receiving supplemental oxygen via nasal cannula. He is not anxious-appearing, and does not appear to be in acute distress, though he is mildly dyspneic with prolonged conversation. HEENT: Atraumatic and normocephalic. CARDIOVASCULAR: Sinus tachycardia. S1 and S2 present. No murmurs, gallops, or rubs. RESPIRATORY: Equal air movement bilaterally, with fine crackles appreciated in middle and basal posterior lung summers; this appears to be mildly improved from yesterday. No wheezes or rales appreciated. Chest rises and falls symmetrically without accessory muscle use. GASTROINTESTINAL: Abdomen is soft, nontender, nondistended. Active bowel sounds present 4 quadrants. EXTREMITIES: No clubbing, cyanosis, or edema. SKIN: Warm, dry, and intact. NEUROLOGIC: Alert and oriented x3. Patient is cooperative with exam and answers questions appropriately. No apparent focal deficits. PSYCHIATRIC: Mood and affect appear appropriate. - Assessment and Plan (1) Acute respiratory failure with hypoxia Current Visit: Yes Status: Acute Assessment and Plan: Likely multifactorial etiology, including pneumonia in setting of underlying small cell lung cancer with metastasis. Radiation pneumonitis remains in the differential diagnosis. Patient did report improved shortness of breath immediately after bronchoscopy; however, nursing staff reported that he was remaining repeatedly dropping into the 80s on 4 L of supplemental oxygen via nasal cannula. Echocardiogram was ordered to evaluate for potential CHF versus pulmonary hypertension. Study was performed on 03/24/2019, and demonstrated LVEF 70%, with no significant valvular dysfunction or pulmonary hypertension. Repeat CTA of the chest was performed on 03/25/2019, which demonstrated a probable subsegmental pulmonary embolus in the left lower lobe. Patient was also noted to have worsening bilateral groundglass attenuation with interlobular septal thickening when compared to study on 03/22/2019. Per radiologist's report, this is likely due to pulmonary edema in the acute setting. Patient was administered one-time dose of Lasix 40 mg IV; review of I's and O's shows total urine output of 1850 mL yesterday. Repeat chest x-ray obtained this morning demonstrated stable findings. Clinically, respiratory status appears to be improved today, as patient is much less anxious in appearance, and is not as significantly dyspneic during conversation. He is able to carry a conversation for several minutes while maintaining appropriate oxygen saturation in the high 80s. Patient remains persistently tachycardic, with heart rate frequently in the range of 110-120 beats per minute. Nursing staff reported later this morning the patient was having sustained desaturation in the high 70s; however, this did improve to the 90s with replacement of oxy-mask and increase in supplemental oxygen. - Continue IV Solu-Medrol 40 mg IVP Q12H and inhaled bronchodilators. - Additional dose of lasix 40mg IVP ordered this morning for further diuresis due to CT evidence of likely pulmonary edema. Continue to monitor and record strict I's and O's. - Continuous pulse oximetry, with continued use of supplemental oxygen titrated to maintain oxygen saturation ~92%. - Continue incentive spirometry and chest percussion therapy. - Continue hydroxyzine 25mg TID PRN anxiety. Patient educated on importance of adequate pain control, particularly in light of lytic lesions in cervicothoracic spine, as his discomfort is often exacerbated taking deep breaths. - Await results of biopsies and microbial specimens obtained during bronchoscopy. Appreciate pulmonology recommendations regarding management of this problem. (2) Goals of care, counseling/discussion Current Visit: Yes Status: Acute Assessment and Plan: Due to significant change in oxygen requirement yesterday, I did have a prolonge d conversation with the patient about potential escalation of respiratory support, which could include intubation. At that time, patient indicated that he wanted to discuss the decision further with his and his sister, both of which were present at the bedside at the time of exam this morning. Patient asked me to explain to his family members the different code options, and what kind of limitations, if any, that he may want to consider placing on aggressive resuscitative efforts in the event of further deterioration. This information was provided, and all questions were answered. Patient indicated that he is leaning towards DNI; however, he wishes to further discuss this with his family members today. Patient was given POA paperwork yesterday, and indicates that he would like to have this filled out prior to hospital discharge. Nursing staff reports that patient is very open to the idea of palliative care, and patient did indicate to me that he is very open to information about comfort-oriented care and what that might entail. He repeatedly voices that his main concern is that he does not want to feel like he is suffocating or short of breath should he experience respiratory arrest. Patient was encouraged to continue this discussion with his family members, and to notify staff if he has more questions or wishes to discuss this further. Palliative care team was contacted about this patient; plan for them to meet the patient tomorrow to discuss options and help answer questions regarding what comfort focused care might look like for this individual. (3) Pulmonary embolism Current Visit: Yes Status: Acute Assessment and Plan: Probable small, left-sided subsegmental pulmonary embolus noted on CTA performed on 03/25/2019. Due to underlying malignancy, decision was made to proceed with anticoagulation. - Continue Lovenox 100mg SQ BID. (4) Community acquired pneumonia Current Visit: Yes Status: Acute Assessment and Plan: Patient presented with progressive shortness of breath and cough, with productive of yellow tinged sputum. CTA of the chest performed on 03/22/2019 did demonstrate diffuse interstitial opacities with possible mild groundglass opacities in subpleural and basilar distribution. Per patient's oncologist, concern for possible PCP pneumonia as he has been on a prolonged course of steroids. Repeat CTA on 03/25/2019 demonstrated worsening bilateral ground glass attenuation with interlobular septal thickening. Though nonspecific, findings were felt to favor pulmonary edema in the acute setting, though they were noted to be potentially related to drug toxicity versus atypical infection. Microbiology studies, including urine antigens and cultures obtained during bronchoscopy, remain negative thus far for causative organism. Patient has remained afebrile over the last several days, and white blood cell count has remained WNL. - Continue Levaquin 750mg; currently day 5 of treatment. Anticipate total antibiotic course of 7 days. - Further plan as above for acute respiratory failure. (5) Small cell lung cancer Current Visit: Yes Status: Chronic Assessment and Plan: Patient has a history of small cell lung cancer S/P chemotherapy and radiation. He is followed by oncology. CTA of the chest performed on 03/22/2019 demonstrated new bilateral pulmonary nod ules predominantly subpleural in location, the largest of which was found to measure 14 x 10 mm in the right upper lobe. Per radiology, differential includes atypical infection versus recurrent/metastatic disease. Patient was also noted to have interstitial opacities with appearance most suggestive of NSIP or early UIP without honeycombing, though drug induced interstitial lung disease was noted to have a similar appearance. Repeat CTA performed on 03/25/2019 demonstrated stable metastatic pulmonary nodules throughout the lungs was stable to minimal increase in size of mediastinal and right hilar adenopathy. Patient was also noted to have interval increase in size of periceliac lymph node measuring 4.1 x 3.0 cm in the upper abdomen compatible with metastatic disease. - Appreciate oncology evaluation and recommendations regarding this problem. - Palliative care consult placed; tentative plan for informal meeting tomorrow to provide general information and discuss potential management options. Code(s): C34.90 - Malignant neoplasm of unspecified part of unspecified bronchus or lung (6) Hypertension Current Visit: Yes Status: Acute Assessment and Plan: Patient reports history of hypertension and not on any treatment. Blood pressure was noted to be elevated at the time of admission, prompting initiation of therapy with lisinopril 10 mg. - Continue current medication regimen and monitoring of blood pressures. (7) DVT prophylaxis Current Visit: Yes Status: Acute Assessment and Plan: - Lovenox 100mg SQ BID. (8) Tachycardia Current Visit: Yes Status: Acute Assessment and Plan: Patient has been persistently tachycardic since admission, with heart rate frequently between 110-120 bpm. EKG performed this morning demonstrated presence of sinus tachycardia, with no ST or T wave abnormalities noted. Initial troponin obtained at the time of admission was found to be <0.03; repeat troponin obtained this morning was minimally increased at 0.04. High suspicion that this is due to prolonged tachycardia, rather than acute ischemic event. Patient denies any chest pain, discomfort, or palpitations. - Start metoprolol 12.5mg BID. - Continue telemetry monitoring. - Time Spent with Patient Total time spent is greater than 50% in coordination of care (as documented) at patient's floor/unit and/or counseling patient: Internal Medicine: Result - Labs CBC & Chem 7: 03/26/19 09:13 03/26/19 09:13 - ABG Interpretation ABG results: ABG ABG pH 7.42 pH Units (7.32-7.45) 03/25/19 12:05 ABG pCO2 46 mmHg (35-45) H 03/25/19 12:05 ABG pO2 76 mmHg (85-104) L 03/25/19 12:05 ABG O2 Saturation 95 % (95-98) 03/25/19 12:05 - Impressions Impressions Chest CTA 03/25/19 11:31 IMPRESSION: 1. Probable subsegmental pulmonary embolus in the left lower lobe. No other proximal pulmonary embolus is identified. 2. Worsening bilateral ground-glass attenuation with interlobular septal thickening when compared to 03/22/2019. Findings are nonspecific but favor pulmonary edema in the acute setting. Findings could also be related to drug toxicity versus an atypical infection. Lymphangitic carcinomatosis cannot be excluded. 3. Stable metastatic pulmonary nodules throughout the lungs with stable to minimal increase in size of mediastinal and right hilar adenopathy also compatible with metastatic disease as these have increased in size since 01/21/2019. 4. Interval increasing size of a paraceliac lymph node measuring 4.1 x 3.0 cm in the upper abdomen compatible with metastatic disease. 5. Stable lytic osseous metastases from 03/22/2019 but otherwise progressed since 01/21/2019. Critical results were called by Dr. Anamaria Collier MD to Margaret Serrano on 03/25/2019 at 13:16. D/ / 03/25/2019 13:50:59 Anamaria Collier MD / len Interpreting Provider: Anamaria Collier MD Chest X-Ray 03/26/19 07:47 IMPRESSION: Stable chest x-ray D/ / Jose Alfredo Salvador MD / Jose Alfredo Salvador MD Interpreting Provider: Jose Alfredo Salvador MD Consult Discharge Plan - Plan Referrals: Wang Nunes [Primary Care Provider] - <Chris Manning - Last Filed: 03/26/19 15:00> Hospitalist Progress Note - Encounter Date of Encounter: 03/26/19 Time of Encounter: 10:00 - Exam Vitals: Temp Pulse Resp BP Pulse Ox 97.8 F 114 19 145/80 89 03/26/19 11:27 03/26/19 11:27 03/26/19 11:27 03/26/19 11:27 03/26/19 11:27 - Assessment and Plan (1) Community acquired pneumonia Current Visit: Yes Status: Acute (2) Small cell lung cancer Current Visit: Yes Status: Chronic Code(s): C34.90 - Malignant neoplasm of unspecified part of unspecified bronchus or lung (3) Hypertension Current Visit: Yes Status: Acute (4) Acute respiratory failure with hypoxia Current Visit: Yes Status: Acute (5) DVT prophylaxis Current Visit: Yes Status: Acute (6) Goals of care, counseling/discussion Current Visit: Yes Status: Acute (7) Pulmonary embolism Current Visit: Yes Status: Acute (8) Tachycardia Current Visit: Yes Status: Acute - Time Spent with Patient Total time spent is greater than 50% in coordination of care (as documented) at patient's floor/unit and/or counseling patient: Internal Medicine: Result - Labs CBC & Chem 7: 03/26/19 09:13 03/26/19 09:13 Labs: Short CBC 03/26/19 Range/Units 09:13 WBC 10.4 (4.3-11.1) K/mcL Hgb 13.8 (12.9-16.9) g/dL Hct 42.2 (37.5-50.1) % Plt Count 162 (140-400) K/mcL Neutrophils # 8.9 (1.6-8.9) K/mcL BMP 03/26/19 09:13 Sodium 139 Potassium 4.1 Chloride 99 Carbon Dioxide 30 H BUN 35 H Creatinine 1.17 Glucose 192 H Calcium 10.6 H Cardiac Enzymes 03/26/19 Range/Units 09:13 Troponin I 0.04 H* (< 0.04) ng/mL - ABG Interpretation ABG results: ABG ABG pH 7.42 pH Units (7.32-7.45) 03/25/19 12:05 ABG pCO2 46 mmHg (35-45) H 03/25/19 12:05 ABG pO2 76 mmHg (85-104) L 03/25/19 12:05 ABG O2 Saturation 95 % (95-98) 03/25/19 12:05 - Impressions Impressions Chest CTA 03/25/19 11:31 IMPRESSION: 1. Probable subsegmental pulmonary embolus in the left lower lobe. No other proximal pulmonary embolus is identified. 2. Worsening bilateral ground-glass attenuation with interlobular septal thickening when compared to 03/22/2019. Findings are nonspecific but favor pulmonary edema in the acute setting. Findings could also be related to drug toxicity versus an atypical infection. Lymphangitic carcinomatosis cannot be excluded. 3. Stable metastatic pulmonary nodules throughout the lungs with stable to minimal increase in size of mediastinal and right hilar adenopathy also compatible with metastatic disease as these have increased in size since 01/21/2019. 4. Interval increasing size of a paraceliac lymph node measuring 4.1 x 3.0 cm in the upper abdomen compatible with metastatic disease. 5. Stable lytic osseous metastases from 03/22/2019 but otherwise progressed since 01/21/2019. Critical results were called by Dr. Anamaria Collier MD to Margaret Serrano on 03/25/2019 at 13:16. D/ / 03/25/2019 13:50:59 Anamaria Collier MD / len Interpreting Provider: Anamaria Collier MD Chest X-Ray 03/26/19 07:47 IMPRESSION: Stable chest x-ray D/ / Jose Alfredo Salvador MD / Jose Alfredo Salvador MD Interpreting Provider: Jose Alfredo Salvador MD - Attending Attestation I saw evaluated and examined this patient and my medical decision-making was reviewed with the Resident Physician, Margaret Serrano. I agree with the documented findings, disposition and treatment plan as described except to any changes set forth below. We independently had [id number] contact with the patient. Patient was sitting up in bed when I evaluated him today. He stated that he felt much better today. He was able to breathe deeper without significant cough. He also noted that his sats were coming up quickly whenever he became hypoxic after a coughing spell. He did have good urine output after he received Lasix last night. He then became hypoxic again this morning and his O2 requirement increased to 15 L. General: Patient is alert, moderate distress, oriented x 3 ENT: Mucous membranes moist Respiratory: Coarse breath sounds bilaterally, with dry crackles at both bases Cardiovascular: Tachycardic. s1 and s2 normal No clicks, rubs, gallops, or murmurs. No pedal edema Abdomen: Abdomen is soft, nontender. Bowel sounds are present Musculoskeletal: Spontaneously moving all extremities Skin: warm, dry, intact. Neuro: Alert oriented x 3 normal cranial nerves, no focal deficits Acute respiratory failure with hypoxia: Due to bilateral pneumonia, lung cancer, pulmonary embolism and pulmonary edema. Patient is in fragile state with high risk for complications. We will continue to monitor closely in stepdown unit. Continue O2 supplementation. Continue steroids. Follow pulmonology recommendations. Sinus Tachycardia: EKG shows sinus tachycardia. Will start patient on low-dose beta eva. Pneumonia: Patient is currently on Levaquin. Small cell lung cancer: Oncology and pulmonology input appreciated. Continue steroids. Await pathology results from bronchoscopy. Hypertension: Blood pressure Elevated today. Will assess response to beta eva. DVT prophylaxis with subcutaneous heparin <Margaret Serrano - Last Filed: 03/26/19 13:08> (3) Pulmonary embolism Qualifiers: Pulmonary embolism type: other Chronicity: unspecified Acute cor pulmonale presence: without acute cor pulmonale Qualified Code(s): I26.99 - Other pulmonary embolism without acute cor pulmonale (4) Community acquired pneumonia Qualifiers: Laterality: right Lung location: unspecified part of lung Qualified Code(s): J18.9 - Pneumonia, unspecified organism (6) Hypertension Qualifiers: Hypertension type: essential hypertension Qualified Code(s): I10 - Essential (primary) hypertension <Chris Manning - Last Filed: 03/26/19 15:00> (1) Community acquired pneumonia Qualifiers: Laterality: right Lung location: unspecified part of lung Qualified Code(s): J18.9 - Pneumonia, unspecified organism (3) Hypertension Qualifiers: Hypertension type: essential hypertension Qualified Code(s): I10 - Essential (primary) hypertension (7) Pulmonary embolism Qualifiers: Pulmonary embolism type: other Chronicity: unspecified Acute cor pulmonale presence: without acute cor pulmonale Qualified Code(s): I26.99 - Other pulmonary embolism without acute cor pulmonale
[2019-03-26 09:28] LABS: Basophils % 0.1 %; Hematocrit 42.2 % (37.5-50.1); Hemoglobin 13.8 g/dL (12.9-16.9); Immature Granulocytes % 0.7 % (0-4); Lymphocytes # 1.1 K/mcL (0.6-4.6); Lymphocytes % 10.9 %; Mean Corpuscular HGB Conc 32.7 g/dL (31.6-35.5); Mean Corpuscular Hemoglobin 29.4 pg (28.0-33.3); Mean Platelet Volume 9.7 fL (9.4-12.4); Monocytes # 0.3 K/mcL (0.0-1.3); Monocytes % 2.5 %; Neutrophils # 8.9 K/mcL (1.6-8.9); Platelet Count 162 K/mcL (140-400); Red Blood Count 4.69 M/mcL (4.19-5.50); Red Cell Distribution Width 15.3 % (11.5-14.5); Segmented Neutrophils % 85.8 %
--- NOTE | 2019-03-26 09:41 | Oncology Inp Progress Note ---
Date of Encounter: 03/26/19 Time of Encounter: 09:00 (1) Small cell lung cancer Current Visit: Yes Status: Chronic Assessment and plan: Small cell lung cancer, on 07/28/2018 he started chemotherapy with cisplatin etoposide completed 4 cycles, with concurrent radiation therapy. Patient deferred prophylactic cranial radiation. He developed subsequent pneumonitis symptoms, status post treatment with antibiotics and steroid courses, hospitalized with worsening cough shortness of breath. Imaging findings reviewed with pt/family bedside that is indicative for progresion/metastatic disease. He has some back discomfor and willing to try palliative treatments once he feels improved SOB-On NC, needing upto 8lt at rest, tachycardic. On lovenox for subsegmental pulmonary emboli. Plan discussed as above. Oncology: Subj Interval history: PAtient on O2 by NC, sat 89-90%. - Constitutional General appearance: no acute distress - Head Head exam: Present: atraumatic, normal inspection - Eye Eye exam: Present: sclera anicteric - ENT ENT exam: Present: mucous membranes moist - Respiratory Respiratory exam: Present: CTAB - Cardiovascular Cardiovascular exam: Present: +S1, +S2, tachycardia - GI/Abdominal GI/Abdominal exam: Present: distended, soft - Extremities Exam Extremities exam: Present: normal inspection Oncology: Obj Data - Labs CBC & Chem 7: 03/26/19 09:13 03/25/19 01:42 Consult Discharge Plan - Plan Referrals: Wang Nunes [Primary Care Provider] - Inpatient Charges Provider: Dr. Denis Dinh Follow up - Inpatient: [id number]
[2019-03-26 09:48] LABS: BUN/Creatinine Ratio 30 (6-26); Blood Urea Nitrogen 35 mg/dL (8-23); Calcium 10.6 mg/dL (8.6-10.3); Carbon Dioxide 30 mEq/L (23-29); Chloride 99 mEq/L (98-107); Glucose 192 mg/dL (70-105); Osmolality,Calculated 301 (280-300); Potassium 4.1 mEq/L (3.5-5.1); Sodium 139 mEq/L (136-145); eGFR For Non-African Americans > 60 (> 60)
[2019-03-26] MEDS: levoFLOXacin 750 MG TABLET PO SCH (10:02)
[2019-03-26] MEDS: hydrOXYzine pamoate 25 MG CAPSULE PO PRN (10:02)
--- NOTE | 2019-03-26 10:37 | Pulmonology Progress Note ---
Date of Encounter: 03/26/19 Time of Encounter: 08:00 Assessment and Plan (1) Acute respiratory failure with hypoxia Current Visit: Yes Status: Acute Patient presenting with acute respiratory failure patient has been diagnosed with small cell lung cancer last year had diabetes cycles of radiation and chemotherapy from the month of December 2018 is having on and off worsening of shortness of breath found to have radiation pneumonitis presenting with most likely radiation pneumonitis , can also be due to atypical pneumonia BAL respiratory culture did not grow anything can be due to worsening of the lung cancer itself like lymphangitic spread. Waiting for the results of transbronchial biopsies. Continue O2 supplementation to keep saturation around 88% patient will need home-going oxygen (2) Pulmonary embolism Current Visit: Yes Status: Acute Patient has probable pulmonary embolism agree that is reasonable with a background of small cell lung cancer to treat this pulmonary embolism as patient have severe V/Q mismatch Qualifiers: Pulmonary embolism type: other Chronicity: unspecified Acute cor pu lmonale presence: without acute cor pulmonale Qualified Code(s): I26.99 - Other pulmonary embolism without acute cor pulmonale (3) Small cell lung cancer Current Visit: Yes Status: Chronic Patient is followed by oncology. Subjective Principal diagnosis: Acute hypoxic respiratory failure Interval history: Patient's face from yesterday is doing a lot better shortness of breath is lot better this cough is lot better with some sputum production with some small streaks of blood patient denies any fever or chills denies any constitutional symptoms. Objective PUL Vital signs: Last Vital Signs Temp 97.8 F 03/26/19 07:36 Pulse 121 03/26/19 07:36 Resp 20 03/26/19 09:51 BP 150/85 03/26/19 07:36 Pulse Ox 90 03/26/19 09:51 General appearance: no acute distress Auscultation: right: rales (minimal scattered rales ) Musculoskeletal: no deformities normal mental status, non-focal exam mood appropriate Results - Laboratory Findings CBC and BMP: 03/26/19 09:13 03/26/19 09:13 ABG ABG pH 7.42 pH Units (7.32-7.45) 03/25/19 12:05 ABG pCO2 46 mmHg (35-45) H 03/25/19 12:05 ABG pO2 76 mmHg (85-104) L 03/25/19 12:05 ABG O2 Saturation 95 % (95-98) 03/25/19 12:05 Abnormal lab findings: Abnormal lab results Hgb 12.8 g/dL (12.9-16.9) L 03/25/19 01:42 RDW 15.3 % (11.5-14.5) H 03/26/19 09:13 Plt Count 127 K/mcL (140-400) L 03/25/19 01:42 ABG pCO2 46 mmHg (35-45) H 03/25/19 12:05 ABG pO2 76 mmHg (85-104) L 03/25/19 12:05 ABG HCO3 30 mEq/L (21-27) H 03/25/19 12:05 ABG Total CO2 31 mEq/L (20-26) H 03/25/19 12:05 ABG Base Excess 4 mEq/L (-2 to 3) H 03/25/19 12:05 Carbon Dioxide 30 mEq/L (23-29) H 03/26/19 09:13 BUN 35 mg/dL (8-23) H 03/26/19 09:13 30 (6-26) H 03/26/19 09:13 Glucose 192 mg/dL (70-105) H 03/26/19 09:13 POC Glucose 112 mg/dL (70-99) H 03/24/19 06:13 301 (280-300) H 03/26/19 09:13 Calcium 10.6 mg/dL (8.6-10.3) H 03/26/19 09:13 0.04 ng/mL (< 0.04) H* 03/26/19 09:13 Fluid Appearance Slightly Hazy (Clear) A 03/24/19 08:07 - Microbiology Findings Microbiology Findings: Microbiology, Last 48 Hours 03/24/19 08:08 Fungal Culture - Preliminary Right Upper Lobe Lung Culture is incubating. 03/24/19 08:13 Fungal Culture - Preliminary Right Lower Lobe Lung Culture is incubating. 03/24/19 08:07 Fungal Culture - Preliminary Right Lower Lobe Lung Culture is incubating. 03/24/19 08:13 Respiratory Culture - Preliminary Right Lower Lobe Lung 03/24/19 08:08 Respiratory Culture - Preliminary Right Upper Lobe Lung 03/24/19 08:07 Respiratory Culture - Preliminary Right Lower Lobe Lung - Clinical Findings Intake & Output: Intake & Output 03/25/19 03/26/19 03/26/19 23:59 07:59 15:59 Intake Total 300 / 650 0 / 240 240 / 240 Output Total 1300 / 1850 250 / 250 Balance -1000 / -1200 -250 / -10 240 / -10 Weight 98.1 kg 96.5 kg Consult Discharge Plan - Plan Referrals: Wang Nunes [Primary Care Provider] -
[2019-03-26] MEDS: *HR* OxyCODONE Immed Rel 5 MG TABLET PO PRN (18:27)
[2019-03-26] MEDS: Sennosides/Docusate Sodium TABLET PO SCH (20:50)
[2019-03-26 22:44] LABS: Influenza A PCR Body Fluid NOT DETECTED; Influenza B PCR Body Fluid NOT DETECTED; RVP Body Fluid Source BAL RUL
[2019-03-26 22:44] LABS: Influenza A PCR Body Fluid NOT DETECTED; Influenza B PCR Body Fluid NOT DETECTED; RVP Body Fluid Source BAL RLL
[2019-03-27] MEDS: Levalbuterol Neb 0.63 MG/3 ML IH SCH ×4 (04:00→22:12)
[2019-03-27 04:08] LABS: Basophils % 0.1 %; Hematocrit 41.9 % (37.5-50.1); Hemoglobin 13.4 g/dL (12.9-16.9); Immature Granulocytes % 0.9 % (0-4); Lymphocytes # 1.2 K/mcL (0.6-4.6); Lymphocytes % 10.6 %; Mean Corpuscular Hemoglobin 29.1 pg (28.0-33.3); Mean Corpuscular Volume 90.9 fL (83.0-100.0); Mean Platelet Volume 9.6 fL (9.4-12.4); Monocytes # 0.4 K/mcL (0.0-1.3); Monocytes % 3.8 %; Neutrophils # 9.5 K/mcL (1.6-8.9); Platelet Count 165 K/mcL (140-400); Red Blood Count 4.61 M/mcL (4.19-5.50); Red Cell Distribution Width 15.3 % (11.5-14.5); Segmented Neutrophils % 84.6 %
[2019-03-27 04:24] LABS: Calcium 10.3 mg/dL (8.6-10.3); Potassium 4.1 mEq/L (3.5-5.1)
[2019-03-27] MEDS: *HR* Enoxaparin 100 MG/ML SYRINGE SQ SCH ×2 (05:43→16:35)
[2019-03-27] MEDS: MethylPREDNISolone 40 MG/ML VIAL IVP SCH (05:43)
[2019-03-27 07:44] LABS: RSV PCR Body Fluid NOT DETECTED
[2019-03-27 07:44] LABS: RSV PCR Body Fluid NOT DETECTED
[2019-03-27] MEDS: *HR* OxyCODONE Immed Rel 5 MG TABLET PO PRN ×2 (09:32→17:24)
[2019-03-27] MEDS: Sennosides/Docusate Sodium TABLET PO SCH ×2 (09:33→21:03)
[2019-03-27] MEDS: levoFLOXacin 750 MG TABLET PO SCH (09:33)
[2019-03-27] MEDS: hydrOXYzine pamoate 25 MG CAPSULE PO PRN (09:33)
--- NOTE | 2019-03-27 10:03 | Internal Med Progress Note ---
<AdoreCorine E - Last Filed: 03/27/19 11:12> Hospitalist Progress Note - Encounter Date of Encounter: 03/27/19 Time of Encounter: 08:30 - Subjective Interval History: Mr. Jensen was seen and evaluated at bedside today. He states that he has been having improvement of the shortness of breath and that he has been told to get out of bed easier before. He states that he was able to rest better last night. He states that he does not feel that he is having trouble getting enough air. He has had a few coughing fits been his been able to get past these quickly. He denies any chest pain, palpitations, racing heartbeat, abdominal pain, nausea, vomiting, diarrhea. He does state that he has been constipated in would like a laxative to help with this. - Exam Vitals: Temp Pulse Resp BP Pulse Ox 97.7 F 101 18 119/76 90 03/27/19 07:14 03/27/19 07:14 03/27/19 07:14 03/27/19 07:14 03/27/19 09:21 Exam: General: AAO 3, no acute distress, answers questions appropriately Head: normocephalic, atraumatic Eyes: BRIAN, no icterus Cardio: RRR, no mumurs, rubs, or gallops Respiratory: Diminished breath sounds bilaterally, no wheezing or rales. Some crackles in the lower lung summers. Abd: normal bowel sounds, no gaurding or rigidity Extremties: no pedal edema, pulses equal bilaterally, warm Skin: warm, dry, intact - Assessment and Plan (1) Acute respiratory failure with hypoxia Current Visit: Yes Status: Acute Assessment and Plan: Patient's acute respiratory failure with hypoxia likely multifactorial in etiology Possibilities include underlying small cell lung cancer with metastasis, radiation pneumonitis, pneumonia Cardiogram on a second showed LVEF 70% with no significant valvular dysfunction or pulmonary hypertension CTA chest on March 25 demonstrated probable segmental pulmonary embolus in the left lower lobe, worsening bilateral groundglass attenuation with intralobar septal thickening when compared to the study on March 22. Likely due to pulmonary edema in the acute setting Repeat chest x-ray demonstrated stable findings Currently he is able to carry on a conversation for several minutes without his oxygen saturation dipping below the upper 80s. Plan Continue IV Solu-Medrol 80 mg every 8 hours and inhaled bronchodilators Continuous pulse ox with supplemental oxygen titration to maintain oxygen greater than 90% Incentive spirometry and chest percussion therapy Continue hydroxyzine 25 mg 3 times a day when necessary for anxiety We will await biopsy results and microbiology from bronchoscopy Pulmonology has been consulted and her sheath recommendations Start Bactrim renally dosed (2) Community acquired pneumonia Current Visit: Yes Status: Acute Assessment and Plan: On presentation patient had progressive SOB and productive cough of yellow sputum CTA demonstrated diffuse interstitial opacities with possible mild groundglass opacities in subpleural and basilar distribution CTA on March 25 and straight worsening of bilateral groundglass attenuation with interlobar septal thickening Secondary to drug toxicity or atypical infection Urine antigens negative Cultures during bronchoscopy continue to be negative for causative organism Patient remains afebrile and white count within normal limits Continue Levaquin this is day 6 of treatment Continue with plan as above for acute respiratory failure with hypoxia (3) DVT prophylaxis Current Visit: Yes Status: Acute Assessment and Plan: Lovenox (4) Hypertension Current Visit: Yes Status: Acute Assessment and Plan: Patient was not currently on any home medications Lisinopril 10 mg was began on admission Blood pressures under control at this time with current regimen Continue lisinopril (5) Pulmonary embolism Current Visit: Yes Status: Acute Assessment and Plan: Probable small, left-sided subsegmental pulmonary embolus on CTA on March 25 Possibly due to underlying malignancy Continuing Lovenox (6) Small cell lung cancer Current Visit: Yes Status: Chronic Assessment and Plan: History of small cell lung cancer status post chemotherapy and radiation Continues to follow oncology CTA chest on March 22 demonstrated new bilateral pulmonary nodules predominantly subpleural in location, largest of which 14 x 10 mm in the right upper lobe. Radiology differentials can include atypical infection versus recurrent/metastatic disease. He was also noted to have interstitial opacities with appearance most suggestive of NSIP or early UIP without honeycombing though drug-induced interstitial lung disease was noted to have a similar appearance CTA on February 23 demonstrated stable metastatic pulmonary nodules throughout the lungs, minimal increase in size of mediastinal and right hilar adenopathy, also noted to have interval increase in size of paraceliac lymph node measuring 4.1 x 3 cm in the upper abdomen and palpable with metastatic disease Oncology has been consulted with pressure the recommendations Palliative care consult was placed yesterday to discuss possible management options with the patient DVT Prophylaxis: Lovenox - Time Spent with Patient Total time spent is greater than 50% in coordination of care (as documented) at patient's floor/unit and/or counseling patient: Internal Medicine: Result - Labs CBC & Chem 7: 03/27/19 03:49 03/27/19 03:49 Labs: Short CBC 03/27/19 Range/Units 03:49 WBC 11.3 H (4.3-11.1) K/mcL Hgb 13.4 (12.9-16.9) g/dL Hct 41.9 (37.5-50.1) % Plt Count 165 (140-400) K/mcL Neutrophils # 9.5 H (1.6-8.9) K/mcL BMP 03/27/19 03:49 Sodium 138 Potassium 4.1 Chloride 99 Carbon Dioxide 30 H BUN 55 H Creatinine 1.58 H Glucose 170 H Calcium 10.3 - ABG Interpretation ABG results: ABG ABG pH 7.42 pH Units (7.32-7.45) 03/25/19 12:05 ABG pCO2 46 mmHg (35-45) H 03/25/19 12:05 ABG pO2 76 mmHg (85-104) L 03/25/19 12:05 ABG O2 Saturation 95 % (95-98) 03/25/19 12:05 Consult Discharge Plan - Plan Referrals: Wang Nunes [Primary Care Provider] - <Chris Manning - Last Filed: 03/27/19 13:37> Hospitalist Progress Note - Encounter Date of Encounter: 03/27/19 Time of Encounter: 09:00 - Exam Vitals: Temp Pulse Resp BP Pulse Ox 97.8 F 119 19 125/77 86 03/27/19 11:56 03/27/19 11:59 03/27/19 11:56 03/27/19 11:56 03/27/19 11:56 - Assessment and Plan (1) Community acquired pneumonia Current Visit: Yes Status: Acute (2) Small cell lung cancer Current Visit: Yes Status: Chronic Code(s): C34.90 - Malignant neoplasm of unspecified part of unspecified bronchus or lung (3) Hypertension Current Visit: Yes Status: Acute (4) Acute respiratory failure with hypoxia Current Visit: Yes Status: Acute (5) DVT prophylaxis Current Visit: Yes Status: Acute (6) Goals of care, counseling/discussion Current Visit: Yes Status: Acute (7) Pulmonary embolism Current Visit: Yes Status: Acute (8) Tachycardia Current Visit: Yes Status: Acute - Time Spent with Patient Total time spent is greater than 50% in coordination of care (as documented) at patient's floor/unit and/or counseling patient: Internal Medicine: Result - Labs CBC & Chem 7: 03/27/19 03:49 03/27/19 03:49 Labs: Short CBC 03/27/19 Range/Units 03:49 WBC 11.3 H (4.3-11.1) K/mcL Hgb 13.4 (12.9-16.9) g/dL Hct 41.9 (37.5-50.1) % Plt Count 165 (140-400) K/mcL Neutrophils # 9.5 H (1.6-8.9) K/mcL BMP 03/27/19 03:49 Sodium 138 Potassium 4.1 Chloride 99 Carbon Dioxide 30 H BUN 55 H Creatinine 1.58 H Glucose 170 H Calcium 10.3 - ABG Interpretation ABG results: ABG ABG pH 7.42 pH Units (7.32-7.45) 03/25/19 12:05 ABG pCO2 46 mmHg (35-45) H 03/25/19 12:05 ABG pO2 76 mmHg (85-104) L 03/25/19 12:05 ABG O2 Saturation 95 % (95-98) 03/25/19 12:05 - Attending Attestation I saw evaluated and examined this patient and my medical decision-making was reviewed with the Resident Physician, Corine Avitia. I agree with the documented findings, disposition and treatment plan as described except to any changes set forth below. We independently had [id number] contact with the patient. Patient reports that he is feeling much better today. However he remains on 2 L O2 supplementation. No chest pain or palpitations. No nausea or vomiting. No fevers or chills reported overnight. General: Patient is alert, moderate distress, oriented x 3 ENT: Mucous membranes moist Respiratory: Improved aeration bilaterally, with dry crackles at both bases Cardiovascular: Tachycardic. s1 and s2 normal No clicks, rubs, gallops, or murmurs. No pedal edema Abdomen: Abdomen is soft, nontender. Bowel sounds are present Musculoskeletal: Spontaneously moving all extremities Skin: warm, dry, intact. Neuro: Alert oriented x 3 normal cranial nerves, no focal deficits Acute respiratory failure with hypoxia: Due to bilateral pneumonia, lung cancer, pulmonary embolism and pulmonary edema. Patient currently on 12 L O2 supplementation. Discussed with pulmonology. Will increase steroids back up to 80 mg IV Solu-Medrol every [address] patient on Bactrim for PCP treatment. Awaiting transbronchial biopsies. Sinus Tachycardia: Patient is tolerating beta eva. Continue to monitor with telemetry.. Pneumonia: Patient is currently on Levaquin. Started on PCP today per pulmonology recommendations Small cell lung cancer: Oncology and pulmonology input appreciated. Transbronchial biopsy results pending. Acute kidney injury: Creatinine 1.58 today. We will hold off on further doses of Lasix. Patient will be placed on Bactrim per pulmonology recommendations at renal dosing. Monitor renal function closely. Hypertension: Better controlled. Continue low-dose Lopressor. DVT prophylaxis with subcutaneous heparin <Corine Avitia - Last Filed: 03/27/19 11:12> (2) Community acquired pneumonia Qualifiers: Laterality: right Lung location: unspecified part of lung Qualified Code(s): J18.9 - Pneumonia, unspecified organism (4) Hypertension Qualifiers: Hypertension type: essential hypertension Qualified Code(s): I10 - Essential (primary) hypertension (5) Pulmonary embolism Qualifiers: Pulmonary embolism type: other Chronicity: unspecified Acute cor pulmonale presence: without acute cor pulmonale Qualified Code(s): I26.99 - Other pulmona ry embolism without acute cor pulmonale <Chris Manning - Last Filed: 03/27/19 13:37> (1) Community acquired pneumonia Qualifiers: Laterality: right Lung location: unspecified part of lung Qualified Code(s): J18.9 - Pneumonia, unspecified organism (3) Hypertension Qualifiers: Hypertension type: essential hypertension Qualified Code(s): I10 - Essential (primary) hypertension (7) Pulmonary embolism Qualifiers: Pulmonary embolism type: other Chronicity: unspecified Acute cor pulmonale presence: without acute cor pulmonale Qualified Code(s): I26.99 - Other pulmonary embolism without acute cor pulmonale
[2019-03-27] MEDS: Sulfamethoxazole/Trimeth 30 ML in D5% in Water 500 ML IVPB SCH ×3 (10:53→23:49)
--- NOTE | 2019-03-27 12:17 | Palliative - Consult Note ---
Date of Encounter: 03/27/19 Time of Encounter: 11:00 - Assessment and Plan (1) Advanced care planning/counseling discussion Current Visit: Yes Status: Acute Assessment and plan: Met with patient, Sandra and sister Kayla at bedside for 45 minutes. Conducted discussion on care planning. Patient with metastatic lung cancer. Adm itted with ARF and has received supplemental O2, steroids, antibiotics and s/p Bronchoscopy on 03/24/19. 7 biopsies taken during Bronch and awaiting results. Updated family of current POC and discussed patients desires. Patient expressed fears of being intubated with ET tube or being placed on mechanical ventilator. States he is claustrophobic and would never desire being placed on ventilator and has serious doubts that he could tolerate Bipap d/t the fear of suffocation. I explained [place] DNR form and all agreed to change status to DNR - A, DNI. Discussed current desires are to have medical treatment as long as is is beneficial. Patient very clear that he would only desire continuing treatment as long as improvement would be an outcome. Discussed pending biopsies and once report known will have a clearer picture of prognosis. Explained DPOA forms and left at bedside. Patient desires Sandra and sister Kayla to be agents. I explained options if biopsies reveal that no treatment or continued treatment would not be likely that patient would have option to enroll into hospice care. I explained hospice care and transition to focus on comfort care. Patient and family verbalized understanding and will await results. Patient and family aware of current fragile state and desire to continue medical management that is in place. Patient day 5 of hospital stay and responded well to treatment. Patient able to verbalize clearly without SOB. Will likely need home O2 and nebulizer machine as well as PT & OT consult. (2) Cancer associated pain Current Visit: Yes Status: Acute Assessment and plan: Patient reports occasional back pain. Currently tolerating Oxycodone 10mg every 6 hrs PRN for comfort. Also has Sherrill PRN. Patient able to reposition himself for comfort. (3) Dyspnea Current Visit: No Status: Acute Assessment and plan: Currently he is able to carry on a conversation for several minutes without his oxygen saturation dipping below the upper 80s. Plan Continue IV Solu-Medrol 80 mg every 8 hours and inhaled bronchodilators Continuous pulse ox with supplemental oxygen titration to maintain oxygen greater than 90% Incentive spirometry and chest percussion therapy We will await biopsy results and microbiology from bronchoscop Pulmonology has been consulted Qualifiers: Dyspnea type: shortness of breath Qualified Code(s): R06.02 - Shortness of breath; R06.00 - Dyspnea, unspecified; R06.01 - Orthopnea (4) Community acquired pneumonia Current Visit: Yes Status: Acute Qualifiers: Laterality: right Lung location: unspecified part of lung Qualified Code(s): J18.9 - Pneumonia, unspecified organism (5) Small cell lung cancer Current Visit: Yes Status: Chronic Assessment and plan: Oncology following. Biopsies pending Palliative-CN HPI - Data of Consult Patient: new to practice Consult date: 03/27/19 Requesting Physician: Yumi Serrano Primary Care Provider: Wang Nunes - Consult Narrative Palliative Care/Comfort Measures: Palliative care Reason for consult: Advanced Care Planning History of present illness: Mr. Jensen is a 68 year old male admitted 5 days ago for SOB and ARF. Patient with history of HTN and small cell lung cancer. Patient diagnosed in Jul, 2018. Patient under went radiation and chemo. Patient report that over the past several weeks he developed SOB and extreme dyspnea. 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 He denies having O2 at home. Patient's acute respiratory failure with hypoxia likely from underlying small cell lung cancer with metastasis, radiation pneumonitis, pneumonia. This palliative care consult is for advanced care planning discussions. CC: Chris Manning MD - Time Spent with Patient Time: Total time spent is greater than 50% in coordination of care (as documented) at patient's floor/unit and/or counseling patient: Time with patient: 45 minutes Past Med Surg Social Fam HX - Past Medical History Source: patient, old records reviewed, nursing notes reviewed Medical history: arthritis, cancer, hyperlipidemia, hypertension, migraine Additional medical history: lung cancer, cervical ddd,colon polyps Psychiatric history: no psych history - Past Surgical History Surgical History: no surgical history - Social History Smoking Status: Former smoker Smokeless Tobacco Status: No Alcohol use: none Drug use: none Occupational status: employed Current living situation: With Family Activity Level: Independent ambulation Recent Out of Country Travel Within the Last 8 Weeks: No Exposure or Possible Exposure to Illness During Travel: No Medications and Allergies Pantoprazole Sodium [Protonix] 20 mg PO QAM 09/24/18 [History] Albuterol Sulfate [Albuterol Inhaler] 1 puff IH BID PRN #1 [id number] 01/12/19 [Rx] Ranitidine HCl [Heartburn Relief] 150 mg PO DAILY #30 tablet 02/11/19 [Rx] predniSONE [PredniSONE] 10 mg PO DAILY #151 tablet 02/21/19 [Rx] Losartan/Hydrochlorothiazide [Losartan-Hctz 50-12.5 mg Tab] 1 tab PO DAILY PRN 03/22/19 [History] raNITIdine HCl [Ranitidine HCl] 300 mg PO HS PRN 03/22/19 [History] Allergy/AdvReac Type Severity Reaction Status Date / Time aspirin Allergy Anaphylaxis Verified 03/22/19 16:02 All systems: reviewed and no additional remarkable complaints except as stated (SOB, anxiety r/t SOB, cough) - Constitutional Constitutional ROS PAL: fatigue - Respiratory Respiratory: cough, dyspnea on exertion, excessive phlegm production - Gastrointestinal Gastrointestinal: constipation - Genitourinary Genitourinary ROS male: urinary frequency - Musculoskeletal Musculoskeletal ROS IM: muscle weakness - Neurological Neurological ROS: weakness Palliative Care-Exam - Constitutional Vitals: Temp Pulse Resp BP Pulse Ox 97.8 F 119 19 125/77 86 03/27/19 11:56 03/27/19 11:59 03/27/19 11:56 03/27/19 11:56 03/27/19 11:56 General appearance: Present: cooperative, no acute distress - Head Head Exam: Present: atraumatic, normal inspection - Eye Eye exam: Present: PERRL Pupils: Present: PERRL - ENT ENT exam: Present: mucous membranes dry Additional comments: High flow O2 causing dry throat - Neck Neck exam: Present: full ROM - Respiratory Respiratory exam: Present: decreased breath sounds, rhonchi - Expanded Respiratory Exam Location: decreased breath sounds: Left, Right, Lower, rhonchi: Left, Right, Upper (Few scattered) - Cardiovascular Cardiovascular exam: Present: RRR, +S1, +S2 - Expanded Cardiovascular Exam Peripheral pulses: 1+: Femoral (L) PM, Femoral (R) PM, Posterior Tibialis (L), Posterior Tibialis (R), 2+: Carotid (L) PM, Carotid (R) PM, Radial (L), Radial (R), Dorsalis Pedis (L) PM, Dorsalis Pedis (R) PM - GI/Abdominal Exam GI/Abdominal exam: Present: normal bowel sounds, soft - Rectal Rectal Exam: Present: deferred - Additional comments: Voids per urinal - Expanded Upper Extremities Exam Upper Arm exam: Present: full ROM Forearm wrist exam: Present: full ROM - Expanded Lower Extremities Exam Upper Leg exam: Present: full ROM Lower Leg exam: Present: full ROM - Neurological Exam Neurological exam: Present: alert, oriented X3 - Expanded Neurological Exam Coma Scale Eye Opening: Spontaneous Coma Scale Motor Response: Obeys Commands Coma Scale Verbal Response: Oriented Coma Scale Total: 15 - Psychiatric Psychiatric exam: Present: normal mood Internal Medicine - CN: Reslt - Labs CBC & Chem 7: 03/27/19 03:49 03/27/19 03:49 Labs: Short CBC 03/27/19 Range/Units 03:49 WBC 11.3 H (4.3-11.1) K/mcL Hgb 13.4 (12.9-16.9) g/dL Hct 41.9 (37.5-50.1) % Plt Count 165 (140-400) K/mcL Neutrophils # 9.5 H (1.6-8.9) K/mcL BMP 03/27/19 03:49 Sodium 138 Potassium 4.1 Chloride 99 Carbon Dioxide 30 H BUN 55 H Creatinine 1.58 H Glucose 170 H Calcium 10.3 - ABG Interpretation ABG results: ABG ABG pH 7.42 pH Units (7.32-7.45) 03/25/19 12:05 ABG pCO2 46 mmHg (35-45) H 03/25/19 12:05 ABG pO2 76 mmHg (85-104) L 03/25/19 12:05 ABG O2 Saturation 95 % (95-98) 03/25/19 12:05 Consult Discharge Plan - Plan Referrals: Wang Nunes [Primary Care Provider] - Palliative Quality Palliative Quality: Screen for Code Status: Yes, Screen for Goals of Care: Yes, Screen for Pain: Yes, If Pain Regimen Started, Initiate Bowel Regimen: Yes, Screen for Nausea/Vomitting: Yes Code Status: 03/22/19 15:09 Resuscitation Status: Active [RES] Routine Comment: Resuscitation Status: Full Code 03/27/19 12:05 DNR [Resuscitation Status: Active] [RES] Routine Comment: Resuscitation Status: [id number] Palliative Scale - Palliative Performance Scale How ambulatory is this patient?: Full What is patient's level of activity and evidence of disease?: Normal activity and work, Some evidence of disease How much self-care assistance does patient require?: Full How much oral intake does the patient have?: Normal What is this patient's level of consciousness?: Full Palliative Performance Score: 90 %
--- NOTE | 2019-03-27 15:14 | Pulmonology Progress Note ---
Date of Encounter: 03/27/19 Time of Encounter: 08:00 Assessment and Plan (1) Acute respiratory failure with hypoxia Current Visit: Yes Status: Acute Patient presenting with acute respiratory failure patient has been diagnosed with small cell lung cancer last year had diabetes cycles of radiation and chemotherapy from the month of December 2018 is having on and off worsening of shortness of breath found to have radiation pneumonitis presenting with most likely radiation pneumonitis , can also be due to atypical pneumonia BAL respiratory culture did not grow anything can be due to worsening of the lung cancer itself like lymphangitic spread. Waiting for the results of transbronchial biopsies. Continue O2 supplementation to keep saturation around 88% patient will need home-going oxygen 03/27 patient still requiring high flow oxygen 2 L/m BAL but this was drained for PCP is pending since patient was on chronic steroid therapy and he is immunos uppressed will do empiric coverage for PCP pneumonia. To continue atypical pneumonia coverage BAL negative so far. The current worsening of V/Q mismatch can be infectious versus worsening of radiation pneumonitis versus lymphangitic carcinomatosis. And renally dosed Bactrim called pharmacy. We will continue to follow for dose adjustments. (2) Pulmonary embolism Current Visit: Yes Status: Acute Patient has probable pulmonary embolism agree that is reasonable with a background of small cell lung cancer to treat this pulmonary embolism as patient have severe V/Q mismatch Qualifiers: Pulmonary embolism type: other Chronicity: unspecified Acute cor pulmonale presence: without acute cor pulmonale Qualified Code(s): I26.99 - Other pulmonary embolism without acute cor pulmonale (3) Small cell lung cancer Current Visit: Yes Status: Chronic Patient is followed by oncology. 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 Waiting results for transbronchial biopsies. Patient has overall poor prognosis agree with palliative care and discussing goals of care patient is now DNR with DNI Subjective Principal diagnosis: Acute hypoxic respiratory failure Interval history: Patient's face from yesterday is doing a lot better shortness of breath is lot better this cough is lot better with some sputum production with some small streaks of blood patient denies any fever or chills denies any constitutional symptoms. 03/27 patient is feeling lot better. Patient denies any chest pain chest tightness denies any palpitation or syncope patient has some scant cough with some sputum production. Objective PUL Vital signs: Last Vital Signs Temp 97.8 F 03/27/19 11:56 Pulse 119 03/27/19 11:59 Resp 19 03/27/19 11:56 BP 125/77 03/27/19 11:56 Pulse Ox 86 03/27/19 11:56 Auscultation: left: rales (Scattered rales), bilateral: other (With some scattered crackles) Cardiovascular: regular rate and rhythm Gastrointestinal: normoactive bowel sounds Extremities: no cyanosis Musculoskeletal: no deformities normal mental status mood appropriate Results - Laboratory Findings CBC and BMP: 03/27/19 03:49 03/27/19 03:49 ABG ABG pH 7.42 pH Units (7.32-7.45) 03/25/19 12:05 ABG pCO2 46 mmHg (35-45) H 03/25/19 12:05 ABG pO2 76 mmHg (85-104) L 03/25/19 12:05 ABG O2 Saturation 95 % (95-98) 03/25/19 12:05 Abnormal lab findings: Abnormal lab results WBC 11.3 K/mcL (4.3-11.1) H 03/27/19 03:49 Hgb 12.8 g/dL (12.9-16.9) L 03/25/19 01:42 RDW 15.3 % (11.5-14.5) H 03/27/19 03:49 Plt Count 127 K/mcL (140-400) L 03/25/19 01:42 9.5 K/mcL (1.6-8.9) H 03/27/19 03:49 ABG pCO2 46 mmHg (35-45) H 03/25/19 12:05 ABG pO2 76 mmHg (85-104) L 03/25/19 12:05 ABG HCO3 30 mEq/L (21-27) H 03/25/19 12:05 ABG Total CO2 31 mEq/L (20-26) H 03/25/19 12:05 ABG Base Excess 4 mEq/L (-2 to 3) H 03/25/19 12:05 Carbon Dioxide 30 mEq/L (23-29) H 03/27/19 03:49 BUN 55 mg/dL (8-23) H 03/27/19 03:49 1.58 mg/dL (0.70-1.30) H 03/27/19 03:49 Est GFR ( Amer) 53 (> 60) L 03/27/19 03:49 Est GFR (Non-Af Amer) 44 (> 60) L 03/27/19 03:49 35 (6-26) H 03/27/19 03:49 Glucose 170 mg/dL (70-105) H 03/27/19 03:49 POC Glucose 112 mg/dL (70-99) H 03/24/19 06:13 305 (280-300) H 03/27/19 03:49 Calcium 10.6 mg/dL (8.6-10.3) H 03/26/19 09:13 0.04 ng/mL (< 0.04) H* 03/26/19 09:13 Fluid Appearance Slightly Hazy (Clear) A 03/24/19 08:07 - Microbiology Findings Microbiology Findings: Microbiology, Last 48 Hours 03/22/19 12:00 Blood Culture - Final Peripheral Venipuncture No growth. Final report. 03/22/19 12:18 Blood Culture - Final Peripheral Venipuncture No growth. Final report. 03/24/19 08:08 Acid Fast Stain - Final Right Upper Lobe Lung 03/24/19 08:13 Acid Fast Stain - Final Right Lower Lobe Lung 03/24/19 08:07 Acid Fast Stain - Final Right Lower Lobe Lung 03/26/19 11:15 Sputum Culture - Final Sputum 03/24/19 08:13 Respiratory Culture - Final Right Lower Lobe Lung 03/24/19 08:08 Respiratory Culture - Final Right Upper Lobe Lung 03/24/19 08:07 Respiratory Culture - Final Right Lower Lobe Lung 03/24/19 08:08 Fungal Culture - Preliminary Right Upper Lobe Lung Culture is incubating. 03/24/19 08:13 Fungal Culture - Preliminary Right Lower Lobe Lung Culture is incubating. 03/24/19 08:07 Fungal Culture - Preliminary Right Lower Lobe Lung Culture is incubating. - Clinical Findings Intake & Output: Intake & Output 03/26/19 03/27/19 03/27/19 23:59 07:59 15:59 Intake Total 240 / 720 Output Total 450 / 1200 200 / 1000 800 / 1000 Balance -210 / -480 -200 / -1000 -800 / -1000 Weight 94.7 kg 94.9 kg Consult Discharge Plan - Plan Referrals: Wang Nunes [Primary Care Provider] -
[2019-03-27] MEDS: methylPREDNISolone 125 MG/2 ML VIAL IVP SCH ×2 (16:35→23:49)
[2019-03-27] MEDS: *HR* HYDROcodone/Acet 5/325 mg TABLET PO PRN (21:13)
[2019-03-28 03:35] LABS: Basophils % 0.2 %; Hematocrit 40.5 % (37.5-50.1); Immature Granulocytes % 0.7 % (0-4); Lymphocytes # 1.2 K/mcL (0.6-4.6); Lymphocytes % 12.2 %; Mean Corpuscular HGB Conc 32.1 g/dL (31.6-35.5); Mean Corpuscular Hemoglobin 28.9 pg (28.0-33.3); Mean Platelet Volume 9.8 fL (9.4-12.4); Monocytes # 0.2 K/mcL (0.0-1.3); Monocytes % 2.1 %; Neutrophils # 8.6 K/mcL (1.6-8.9); Platelet Count 166 K/mcL (140-400); Red Cell Distribution Width 15.3 % (11.5-14.5); Segmented Neutrophils % 84.8 %
[2019-03-28 03:53] LABS: Calcium 9.5 mg/dL (8.6-10.3); Potassium 4.1 mEq/L (3.5-5.1)
[2019-03-28] MEDS: Levalbuterol Neb 0.63 MG/3 ML IH SCH ×4 (04:45→22:10)
[2019-03-28] MEDS: *HR* Enoxaparin 100 MG/ML SYRINGE SQ SCH ×2 (05:31→17:24)
[2019-03-28] MEDS: *HR* HYDROcodone/Acet 5/325 mg TABLET PO PRN (05:31)
[2019-03-28] MEDS: levoFLOXacin 750 MG TABLET PO SCH (08:06)
[2019-03-28] MEDS: Sennosides/Docusate Sodium TABLET PO SCH ×2 (08:06→21:29)
[2019-03-28] MEDS: methylPREDNISolone 125 MG/2 ML VIAL IVP SCH ×2 (08:07→17:24)
--- NOTE | 2019-03-28 08:55 | Pulmonology Progress Note ---
Date of Encounter: 03/28/19 Time of Encounter: 09:00 Assessment and Plan (1) Acute respiratory failure with hypoxia Current Visit: Yes Status: Acute Overall his condition is worsening and he felt better after he had bronchoscopy yesterday and now is more hypoxic. I have called pathology around here today and explained to them that we need result of biopsy as soon as possible and BAL shows evidence of acute inflammation which could be related to radiation. Systemic steroid dose has increased and discussed this with primary team. CT chest was done with evidence of probable pulmonary embolism, however with his lung cancer it will be safer to have him on anticoagulation and also diuresis as much as tolerated. Needs to continue follow-up on the result of bronchoscopy and I have explained this to the patient and his family at the bedside. I feel overall prognosis is poor especially with his CT chest findings. 5/ patient is still requiring high FiO2 and significant hypoxia mainly when patient mobilize. I have discussed with the pathologist regarding his biopsy result which does not show any evidence of malignancies and acute inflammatory changes in the bronchoalveolar lavage. Since this is transbronchial biopsy, and that his limitations due to the size of the biopsy and my not reflect true disease and he denies no improvement, will consider consultation with thoracic surgeon for possible larger size biopsy. Diuresis as much as possible and continue current dose of systemic steroid. If cultures remain negative we will consider de-escalation. (2) Small cell lung cancer Current Visit: Yes Status: Chronic Subjective Principal diagnosis: Acute hypoxic respiratory failure Interval history: Patient is still requiring high FiO2 and he is overall feeling better and still very limited mobilization because of the hypoxia. Objective PUL Vital signs: Last Vital Signs Temp 98.2 F 03/28/19 07:22 Pulse 105 03/28/19 07:22 Resp 18 03/28/19 07:22 BP 125/74 03/28/19 07:22 Pulse Ox 85 03/28/19 08:27 General appearance: other (Patient appears acutely ill) Eyes: nonicteric ENT: oropharynx dry Neck: supple Effort: mildly labored Auscultation: bilateral: other (Crackles bilaterally) Percussion: bilateral: not dull Cardiovascular: regular rate and rhythm Gastrointestinal: normoactive bowel sounds, non-distended Extremities: no cyanosis, edema normal mental status, non-focal exam mood appropriate Results - Laboratory Findings CBC and BMP: 03/28/19 02:56 03/28/19 02:56 ABG ABG pH 7.42 pH Units (7.32-7.45) 03/25/19 12:05 ABG pCO2 46 mmHg (35-45) H 03/25/19 12:05 ABG pO2 76 mmHg (85-104) L 03/25/19 12:05 ABG O2 Saturation 95 % (95-98) 03/25/19 12:05 Abnormal lab findings: Abnormal lab results WBC 11.3 K/mcL (4.3-11.1) H 03/27/19 03:49 Hgb 12.8 g/dL (12.9-16.9) L 03/25/19 01:42 RDW 15.3 % (11.5-14.5) H 03/28/19 02:56 Plt Count 127 K/mcL (140-400) L 03/25/19 01:42 9.5 K/mcL (1.6-8.9) H 03/27/19 03:49 ABG pCO2 46 mmHg (35-45) H 03/25/19 12:05 ABG pO2 76 mmHg (85-104) L 03/25/19 12:05 ABG HCO3 30 mEq/L (21-27) H 03/25/19 12:05 ABG Total CO2 31 mEq/L (20-26) H 03/25/19 12:05 ABG Base Excess 4 mEq/L (-2 to 3) H 03/25/19 12:05 Sodium 134 mEq/L (136-145) L 03/28/19 02:56 Carbon Dioxide 30 mEq/L (23-29) H 03/27/19 03:49 BUN 53 mg/dL (8-23) H 03/28/19 02:56 1.57 mg/dL (0.70-1.30) H 03/28/19 02:56 Est GFR ( Amer) 54 (> 60) L 03/28/19 02:56 Est GFR (Non-Af Amer) 44 (> 60) L 03/28/19 02:56 34 (6-26) H 03/28/19 02:56 Glucose 196 mg/dL (70-105) H 03/28/19 02:56 POC Glucose 112 mg/dL (70-99) H 03/24/19 06:13 305 (280-300) H 03/27/19 03:49 Calcium 10.6 mg/dL (8.6-10.3) H 03/26/19 09:13 0.04 ng/mL (< 0.04) H* 03/26/19 09:13 Fluid Appearance Slightly Hazy (Clear) A 03/24/19 08:07 - Microbiology Findings Microbiology Findings: Microbiology, Last 48 Hours 03/22/19 12:00 Blood Culture - Final Peripheral Venipuncture No growth. Final report. 03/22/19 12:18 Blood Culture - Final Peripheral Venipuncture No growth. Final report. 03/24/19 08:08 Acid Fast Stain - Final Right Upper Lobe Lung 03/24/19 08:13 Acid Fast Stain - Final Right Lower Lobe Lung 03/24/19 08:07 Acid Fast Stain - Final Right Lower Lobe Lung 03/26/19 11:15 Sputum Culture - Final Sputum 03/24/19 08:13 Respiratory Culture - Final Right Lower Lobe Lung 03/24/19 08:08 Respiratory Culture - Final Right Upper Lobe Lung 03/24/19 08:07 Respiratory Culture - Final Right Lower Lobe Lung - Clinical Findings Intake & Output: Intake & Output 03/27/19 03/28/19 03/28/19 23:59 07:59 15:59 Intake Total 770 / 1300 630 / 630 Output Total 450 / 1450 300 / 300 Balance 320 / -150 330 / 330 Weight 95.7 kg Consult Discharge Plan - Plan Referrals: Wang Nunes [Primary Care Provider] - 04/01/19 10:00 am
[2019-03-28] MEDS: Sulfamethoxazole/Trimeth 30 ML in D5% in Water 500 ML IVPB SCH ×2 (09:57→17:23)
--- NOTE | 2019-03-28 10:53 | Electrocardiograph Report ---
[address] [place], [place] [address] Test Date: 2019-03-26 [place] Name: David Jensen Department: 110 Room: 04 Gender: M Consulting Manager: SEBASTIEN : 1950 Requested By: Margaret Serrano Order Number: [id number] Reading MD: Yaneth Cueto Measurements Intervals [place] Rate: 122 P: 37 CO: 144 QRS: 29 QRSD: 88 T: 11 QT: 284 QTc: 357 Interpretive Statements SINUS TACHYCARDIA NONSPECIFIC ST-WAVE ABNORMALITY ABNORMAL RHYTHM ECG Electronically Signed On 03-28-2019 10:51:20 EDT by Yaneth Cueto
[2019-03-28] MEDS: hydrOXYzine pamoate 25 MG CAPSULE PO PRN ×3 (10:59→21:28)
--- NOTE | 2019-03-28 11:15 | Palliative Progress Note ---
Date of Encounter: 03/28/19 Time of Encounter: 10:55 - Assessment and plan (1) Cancer associated pain Current Visit: Yes Status: Acute Assessment and plan: Continues with [place] for mod pain, and Oxycodone for more severe pain. Utilized both medications x2 within the last 24 hours. MOnitor. (2) Dyspnea Current Visit: No Status: Acute Assessment and plan: Remains on continuous oxygen, currently at 100% NRB with bronchodilators. IV steroids as well for radiation pneumonitis. Qualifiers: Dyspnea type: shortness of breath Qualified Code(s): R06.02 - Shortness of breath; R06.00 - Dyspnea, unspecified; R06.01 - Orthopnea (3) Constipation Current Visit: Yes Status: Acute Assessment and plan: Continue Senokot BID. May have issue with BM with severe dyspnea. Will add sup pository for PRN use if needed. (4) Goals of care, counseling/discussion Current Visit: Yes Status: Acute Assessment and plan: Spoke with pt, Dot, and sister Lo. Provided emotional support. They are aware we are awaiting biopsy results. They were appreciative of Sully's extensive conversation with them yesterday and had no further questions today. Will continue to follow clinical course closely. (5) Small cell lung cancer Current Visit: Yes Status: Chronic Assessment and plan: Oncology following. Awaiting biopsy results from bronchoscopy. (6) Acute respiratory failure with hypoxia Current Visit: Yes Status: Acute (7) Pulmonary embolism Current Visit: Yes Status: Acute Qualifiers: Pulmonary embolism type: other Chronicity: unspecified Acute cor pulmonale presence: without acute cor pulmonale Qualified Code(s): I26.99 - Other pulmonary embolism without acute cor pulmonale - Time Spent With Patient Total time spent is greater than 50% in coordination of care (as documented) at patient's floor/unit and/or counseling patient: - Subjective Interval history: Patient is awake and alert - and sister at bedside. Remains quite dyspneic, On 100% NRB, and desaturates with any activity. Awaiting pathology of biopsies. Pulmonology following closely. Other vitals stable. C/o some back pain that is relieved with current medications. - Constitutional Vitals: Abnormal lab results WBC 11.3 K/mcL (4.3-11.1) H 03/27/19 03:49 Hgb 12.8 g/dL (12.9-16.9) L 03/25/19 01:42 RDW 15.3 % (11.5-14.5) H 03/28/19 02:56 Plt Count 127 K/mcL (140-400) L 03/25/19 01:42 9.5 K/mcL (1.6-8.9) H 03/27/19 03:49 ABG pCO2 46 mmHg (35-45) H 03/25/19 12:05 ABG pO2 76 mmHg (85-104) L 03/25/19 12:05 ABG HCO3 30 mEq/L (21-27) H 03/25/19 12:05 ABG Total CO2 31 mEq/L (20-26) H 03/25/19 12:05 ABG Base Excess 4 mEq/L (-2 to 3) H 03/25/19 12:05 Sodium 134 mEq/L (136-145) L 03/28/19 02:56 Carbon Dioxide 30 mEq/L (23-29) H 03/27/19 03:49 BUN 53 mg/dL (8-23) H 03/28/19 02:56 1.57 mg/dL (0.70-1.30) H 03/28/19 02:56 Est GFR ( Amer) 54 (> 60) L 03/28/19 02:56 Est GFR (Non-Af Amer) 44 (> 60) L 03/28/19 02:56 34 (6-26) H 03/28/19 02:56 Glucose 196 mg/dL (70-105) H 03/28/19 02:56 POC Glucose 112 mg/dL (70-99) H 03/24/19 06:13 305 (280-300) H 03/27/19 03:49 Calcium 10.6 mg/dL (8.6-10.3) H 03/26/19 09:13 0.04 ng/mL (< 0.04) H* 03/26/19 09:13 Fluid Appearance Slightly Hazy (Clear) A 03/24/19 08:07 Palliative Quality Palliative Quality: Screen for Code Status: Yes, Screen for Goals of Care: Yes, Screen for Pain: Yes, If Pain Regimen Started, Initiate Bowel Regimen: Yes, Screen for Nausea/Vomitting: Yes Code Status: 04/30/19 15:09 Resuscitation Status: Active [RES] Routine Comment: Resuscitation Status: Full Code 03/27/19 12:05 DNR [Resuscitation Status: Active] [RES] Routine Comment: Resuscitation Status: [id number] - Labs CBC & Chem 7: 03/28/19 02:56 03/28/19 02:56 Labs: Laboratory Results - last 24 hr 03/28/19 03/28/19 02:56 02:56 WBC 10.1 RBC 4.50 Hgb 13.0 Hct 40.5 MCV 90.0 MCH 28.9 MCHC 32.1 RDW 15.3 H Plt Count 166 MPV 9.8 Immature Gran % 0.7 Seg Neutrophils % 84.8 Lymphocytes % 12.2 Monocytes % 2.1 Eosinophils % 0.0 Basophils % 0.2 Neutrophils # 8.6 Lymphocytes # 1.2 Monocytes # 0.2 Eosinophils # 0.0 Basophils # 0.0 Sodium 134 L Potassium 4.1 Chloride 98 Carbon Dioxide 29 BUN 53 H Creatinine 1.57 H Est GFR ( Amer) 54 L Est GFR (Non-Af Amer) 44 L BUN/Creatinine Ratio 34 H Glucose 196 H Calculated Osmolality 298 Calcium 9.5 - Impressions Impressions Chest X-Ray 03/27/19 13:09 IMPRESSION: Slight worsening of airspace opacities. D/ / Apoorva Flores MD / Apoorva Flores MD Interpreting Provider: Apoorva Flores MD - ABG Interpretation ABG results: ABG ABG pH 7.42 pH Units (7.32-7.45) 03/25/19 12:05 ABG pCO2 46 mmHg (35-45) H 03/25/19 12:05 ABG pO2 76 mmHg (85-104) L 03/25/19 12:05 ABG O2 Saturation 95 % (95-98) 03/25/19 12:05 Palliative Scale - Palliative Performance Scale How ambulatory is this patient?: Full What is patient's level of activity and evidence of disease?: Normal activity and work, Some evidence of disease How much self-care assistance does patient require?: Full How much oral intake does the patient have?: Normal What is this patient's level of consciousness?: Full Palliative Performance Score: 90 % Consult Discharge Plan - Plan Referrals: Wang Nunes [Primary Care Provider] - 04/01/19 10:00 am
[2019-03-28] MEDS ORDERED: Bisacodyl 10 MG RECTAL SUPPOSITORY RC PRN (11:31)
--- NOTE | 2019-03-28 14:07 | Internal Med Progress Note ---
<Orion Matute - Last Filed: 03/28/19 14:05> Hospitalist Progress Note - Encounter Date of Encounter: 03/28/19 Time of Encounter: 10:15 - Subjective Interval History: Patient is resting in bed at time of examination. He continued to require high flow oxygen overnight however he was feeling claustrophobic with BiPAP and reque sted to be placed back on oxygen mask. We continue to await definitive diagnosis with biopsy results. - Exam Vitals: Temp Pulse Resp BP Pulse Ox 98.4 F 102 20 119/88 93 03/28/19 11:23 03/28/19 11:23 03/28/19 11:23 03/28/19 11:23 03/28/19 11:23 Exam: General: AAO 3, no acute distress, answers questions appropriately Head: normocephalic, atraumatic Eyes: BRIAN, no icterus Cardio: RRR, no mumurs, rubs, or gallops Respiratory: Diminished breath sounds bilaterally, no wheezing or rales. Some crackles in the lower lung summers. Abd: normal bowel sounds, no gaurding or rigidity Extremties: no pedal edema, pulses equal bilaterally, warm Skin: warm, dry, intact - Assessment and Plan (1) Acute respiratory failure with hypoxia Current Visit: Yes Status: Acute Assessment and Plan: Likely multifactorial etiology, including pneumonia in setting of underlying small cell lung cancer with metastasis. Radiation pneumonitis remains in the differential diagnosis. Solu-Medrol 80mg q8h Duonebs, titrate oxygen Continuous pulse oximetry Treat pneumonia as above Appreciate pulmonology recommendation (2) Community acquired pneumonia Current Visit: Yes Status: Acute Assessment and Plan: Suspected community acquired pneumonia CTA demonstrated diffuse interstitial opacities and groundglass opacities Cultures and urine antigens have been negative thus far, BAL sample negative thus far Currently on Levaquin day 7; Bactrim for PCP prophylaxis Appreciate pulmonology recommendations (3) Small cell lung cancer Current Visit: Yes Status: Chronic Assessment and Plan: History of small cell lung cancer status post chemotherapy and radiation Continues to follow oncology CTA chest on March 22 demonstrated new bilateral pulmonary nodules predominantly subpleural in location, largest of which 14 x 10 mm in the right upper lobe. Radiology differentials can include atypical infection versus recurre nt/metastatic disease. He was also noted to have interstitial opacities with appearance most suggestive of NSIP or early UIP without honeycombing though drug-induced interstitial lung disease was noted to have a similar appearance CTA on February 23 demonstrated stable metastatic pulmonary nodules throughout the lungs, minimal increase in size of mediastinal and right hilar adenopathy, also noted to have interval increase in size of paraceliac lymph node measuring 4.1 x 3 cm in the upper abdomen and palpable with metastatic disease Oncology has been consulted Palliative is on board for further discussion Code(s): C34.90 - Malignant neoplasm of unspecified part of unspecified bronchus or lung (4) Hypertension Current Visit: Yes Status: Acute Assessment and Plan: - Continue current medication regimen and monitoring of blood pressures. (5) DVT prophylaxis Current Visit: Yes Status: Acute Assessment and Plan: - Lovenox 100mg SQ BID. (6) Pulmonary embolism Current Visit: Yes Status: Acute Assessment and Plan: Probable small, left-sided subsegmental pulmonary embolus noted on CTA performed on 03/25/2019. Due to underlying malignancy, decision was made to proceed with anticoagulation. - Continue Lovenox 100mg SQ BID. - Time Spent with Patient Total time spent is greater than 50% in coordination of care (as documented) at patient's floor/unit and/or counseling patient: Internal Medicine: Result - Labs CBC & Chem 7: 03/28/19 02:56 03/28/19 02:56 Labs: Short CBC 03/28/19 Range/Units 02:56 WBC 10.1 (4.3-11.1) K/mcL Hgb 13.0 (12.9-16.9) g/dL Hct 40.5 (37.5-50.1) % Plt Count 166 (140-400) K/mcL Neutrophils # 8.6 (1.6-8.9) K/mcL BMP 03/28/19 02:56 Sodium 134 L Potassium 4.1 Chloride 98 Carbon Dioxide 29 BUN 53 H Creatinine 1.57 H Glucose 196 H Calcium 9.5 - ABG Interpretation ABG results: ABG ABG pH 7.42 pH Units (7.32-7.45) 03/25/19 12:05 ABG pCO2 46 mmHg (35-45) H 03/25/19 12:05 ABG pO2 76 mmHg (85-104) L 03/25/19 12:05 ABG O2 Saturation 95 % (95-98) 03/25/19 12:05 - Impressions Impressions Chest X-Ray 03/27/19 13:09 IMPRESSION: Slight worsening of airspace opacities. D/ / Apoorva Flores MD / Apoorva Flores MD Interpreting Provider: Apoorva Flores MD Consult Discharge Plan - Plan Referrals: Wang Nunes [Primary Care Provider] - 04/01/19 10:00 am <Chris Manning - Last Filed: 03/28/19 14:52> Hospitalist Progress Note - Encounter Date of Encounter: 03/28/19 Time of Encounter: 10:25 - Exam Vitals: Temp Pulse Resp BP Pulse Ox 98.4 F 102 20 119/88 93 03/28/19 11:23 03/28/19 11:23 03/28/19 11:23 03/28/19 11:23 03/28/19 11:23 - Assessment and Plan (1) Community acquired pneumonia Current Visit: Yes Status: Acute (2) Small cell lung cancer Current Visit: Yes Status: Chronic Code(s): C34.90 - Malignant neoplasm of unspecified part of unspecified bronchus or lung (3) Hypertension Current Visit: Yes Status: Acute (4) Acute respiratory failure with hypoxia Current Visit: Yes Status: Acute (5) DVT prophylaxis Current Visit: Yes Status: Acute (6) Pulmonary embolism Current Visit: Yes Status: Acute - Time Spent with Patient Total time spent is greater than 50% in coordination of care (as documented) at patient's floor/unit and/or counseling patient: Internal Medicine: Result - Labs CBC & Chem 7: 03/28/19 02:56 03/28/19 02:56 Labs: Short CBC 03/28/19 Range/Units 02:56 WBC 10.1 (4.3-11.1) K/mcL Hgb 13.0 (12.9-16.9) g/dL Hct 40.5 (37.5-50.1) % Plt Count 166 (140-400) K/mcL Neutrophils # 8.6 (1.6-8.9) K/mcL BMP 03/28/19 02:56 Sodium 134 L Potassium 4.1 Chloride 98 Carbon Dioxide 29 BUN 53 H Creatinine 1.57 H Glucose 196 H Calcium 9.5 - ABG Interpretation ABG results: ABG ABG pH 7.42 pH Units (7.32-7.45) 03/25/19 12:05 ABG pCO2 46 mmHg (35-45) H 03/25/19 12:05 ABG pO2 76 mmHg (85-104) L 03/25/19 12:05 ABG O2 Saturation 95 % (95-98) 03/25/19 12:05 - Impressions Impressions Chest X-Ray 03/27/19 13:09 IMPRESSION: Slight worsening of airspace opacities. D/ / Apoorva Flores MD / Apoorva Flores MD Interpreting Provider: Apoorva Flores MD - Attending Attestation I saw evaluated and examined this patient and my medical decision-making was reviewed with the Resident Physician, Orion Matute. I agree with the documented findings, disposition and treatment plan as described except to any changes set forth below. We independently had [id number] contact with the patient. Patient feels just about the same. Continues to have high oxygen requirements. Remains dyspneic. No significant improvement overall. Presently on 14 L nasal cannula. No fevers or chills reported overnight. General: Patient is alert, moderate distress, oriented x 3 ENT: Mucous membranes moist Respiratory: Patient continues to have good air entry bilaterally. Dry crackles present at both bases. Using some accessory muscles. Cardiovascular: Tachycardic. s1 and s2 normal No clicks, rubs, gallops, or murmurs. No pedal edema Abdomen: Abdomen is soft, nontender. Bowel sounds are present Musculoskeletal: Spontaneously moving all extremities Skin: warm, dry, intact. Neuro: Alert oriented x 3 normal cranial nerves, no focal deficits Acute respiratory failure with hypoxia: Multifactorial. Due to bilateral pneumo dean, lung cancer, pulmonary embolism, possible radiation pneumonitis and pulmonary edema. On 14 L O2 supplementation. Discussed possible BiPAP use. Patient reports that he is very claustrophobic and does not do well with any kind of masks. Willing to try a non-rebreather mask to see if he would tolerate it. On PCP prophylaxis/treatment with Bactrim. Awaiting pathology results. High risk for complications. Poor prognosis overall. Sinus Tachycardia: Heart rate is improving. Continue low-dose beta eva Pneumonia: Patient is currently on Levaquin and Bactrim per pulmonology recommendations. Cultures have so far been negative. Small cell lung cancer: Poor prognosis. Progression of cancer noted on recent CT scan. Acute kidney injury: Creatinine 1.57 today. Holding off on Lasix due to acute kidney injury. Also monitoring for further worsening as patient is on Bactrim. Hypertension: Well controlled. Continue low-dose Lopressor. DVT prophylaxis with subcutaneous heparin Discussed plan of care with both patient and family. Patient would like to continue receiving treatment to get better but wants to be comfortable if things start to get worse with no chance of recovery. Palliative care following. <Orion Matute - Last Filed: 03/28/19 14:05> (2) Community acquired pneumonia Qualifiers: Laterality: right Lung location: unspecified part of lung Qualified Code(s): J18.9 - Pneumonia, unspecified organism (4) Hypertension Qualifiers: Hypertension type: essential hypertension Qualified Code(s): I10 - Essential (primary) hypertension (6) Pulmonary embolism Qualifiers: Pulmonary embolism type: other Chronicity: unspecified Acute cor pulmonale presence: without acute cor pulmonale Qualified Code(s): I26.99 - Other pulmonary embolism without acute cor pulmonale <Chris Manning - Last Filed: 03/28/19 14:52> (1) Community acquired pneumonia Qualifiers: Laterality: right Lung location: unspecified part of lung Qualified Code(s): J18.9 - Pneumonia, unspecified organism (3) Hypertension Qualifiers: Hypertension type: essential hypertension Qualified Code(s): I10 - Essential (primary) hypertension (6) Pulmonary embolism Qualifiers: Pulmonary embolism type: other Chronicity: unspecified Acute cor pulmonale presence: without acute cor pulmonale Qualified Code(s): I26.99 - Other pulmonary embolism without acute cor pulmonale
[2019-03-28] MEDS: *HR* OxyCODONE Immed Rel 5 MG TABLET PO PRN (21:28)
[2019-03-29] MEDS: methylPREDNISolone 125 MG/2 ML VIAL IVP SCH ×3 (00:51→17:01)
[2019-03-29] MEDS: Sulfamethoxazole/Trimeth 30 ML in D5% in Water 500 ML IVPB SCH ×3 (00:51→17:02)
[2019-03-29] MEDS ORDERED: *HR* LORazepam 2 MG/ML VIAL IVP ONE (02:16)
[2019-03-29] MEDS ORDERED: *HR* LORazepam 2 MG/ML VIAL ONE (02:23)
[2019-03-29] MEDS ORDERED: *HR* Morphine 2 MG/ML SYRINGE IH ONE (02:48)
[2019-03-29] MEDS: Levalbuterol Neb 0.63 MG/3 ML IH SCH ×4 (03:54→22:13)
[2019-03-29] MEDS ORDERED: Haloperidol Lactate 5 MG/ML VIAL IM ONE (05:28)
[2019-03-29] MEDS ORDERED: Haloperidol Lactate 5 MG/ML VIAL ONE (05:30)
[2019-03-29] MEDS ORDERED: *HR* Morphine 2 MG/ML SYRINGE IH PRN (05:53)
[2019-03-29 06:02] LABS: Basophils % 0.2 %; Hematocrit 43.8 % (37.5-50.1); Hemoglobin 14.3 g/dL (12.9-16.9); Immature Granulocytes % 1.4 % (0-4); Lymphocytes # 3.1 K/mcL (0.6-4.6); Lymphocytes % 19.9 %; Mean Corpuscular HGB Conc 32.6 g/dL (31.6-35.5); Mean Corpuscular Hemoglobin 29.6 pg (28.0-33.3); Mean Corpuscular Volume 90.7 fL (83.0-100.0); Monocytes # 0.6 K/mcL (0.0-1.3); Monocytes % 3.9 %; Neutrophils # 11.8 K/mcL (1.6-8.9); Platelet Count 189 K/mcL (140-400); Red Blood Count 4.83 M/mcL (4.19-5.50); Red Cell Distribution Width 15.4 % (11.5-14.5); Segmented Neutrophils % 74.6 %
[2019-03-29 06:25] LABS: Calcium 9.9 mg/dL (8.6-10.3); Potassium 4.3 mEq/L (3.5-5.1)
--- NOTE | 2019-03-29 06:41 | Event Note ---
Date of Encounter: 03/29/19 Time of Encounter: 06:10 Paged by nursing out to 213 a.m. as the patient was having difficulty breathing respiratory was at bedside. Patient was extremely anxious and his saturation was 80% on high flow nasal cannula. Prior to starting BiPAP he had received 10 mg oxycodone immediate release which he was scheduled for. BiPAP was became anxious that he had received through 0.5 mg of Ativan but continued to feel uncomfortable. After discussion with pharmacy and attending it was decided to use 2 mg of inhalation morphine for air breathing. At 524 received a message the patient was coming combative and fighting the BiPAP in the process lost his IV. Went to see the patient and his sister without bedside reported she believes he was intolerant to BiPAP respiratory was at bedside and requested a flow oxygen therapy through Deb. Additionally received one milligram of IM Haldol which relaxed him. His sister then stated she believes the patient just wants to be remained comfortable and likely does not want a BiPAP. I discussed with her the current CODE STATUS and she was understanding of it but stated his needs to be at bedside and will have a meeting with palliative care today. But she continued to state that the patient only would like to be left comfortable and he would not want to be on a BiPAP nor any other invasive therapies. Because morphine helped him initially with respiration and overall anxiety decision was made to restart 2 mg morphine via inhalation every 2 hours. Primary and palliative team is to discuss with the family for further goals of care.
[2019-03-29] MEDS: *HR* Enoxaparin 100 MG/ML SYRINGE SQ SCH ×2 (07:02→18:22)
--- NOTE | 2019-03-29 07:39 | Internal Med Progress Note ---
<Orion Matute - Last Filed: 03/29/19 14:54> Hospitalist Progress Note - Encounter Date of Encounter: 03/29/19 Time of Encounter: 10:00 - Subjective Interval History: The patient is resting in bed at time of examination. He is accompanied by multiple family members in the room. He did have an event overnight at which point he became acutely hypoxic and dyspneic. He apparently desaturated multiple times overnight and required morphine in order to become comfortable again. He does become very claustrophobic while using BiPAP and this is been a major concern for him. He also does not like the OxiMax because it also gives him that same feeling. He has been progressively feeling worse but continues to want minimal care. - Exam Vitals: Temp Pulse Resp BP Pulse Ox 98.1 F 119 34 106/73 93 03/29/19 07:24 03/29/19 07:24 03/29/19 07:24 03/29/19 07:24 03/29/19 07:24 Exam: General: AAO 3, no acute distress, answers questions appropriately Head: normocephalic, atraumatic Eyes: BRIAN, no icterus Cardio: RRR, no mumurs, rubs, or gallops Respiratory: Diminished breath sounds bilaterally, no wheezing or rales. Some crackles in the lower lung summers. Abd: normal bowel sounds, no gaurding or rigidity Extremties: no pedal edema, pulses equal bilaterally, warm Skin: warm, dry, intact - Assessment and Plan (1) Acute respiratory failure with hypoxia Current Visit: Yes Status: Acute Assessment and Plan: Likely multifactorial etiology, including pneumonia in setting of underlying small cell lung cancer with metastasis. Radiation pneumonitis remains in the differential diagnosis. Continued to have ARF overnight, could not tolerate BiPAP. Relaxed with inhalational Morphine Per pulmonology, Lasix may be helpful in alleviating respiratory distress. We will start with 40 mg daily, assess response Strict I's and O's Solu-Medrol 80mg q8h Duonebs, titrate oxygen Continuous pulse oximetry Treat pneumonia as above Appreciate pulmonology recommendation (2) Community acquired pneumonia Current Visit: Yes Status: Acute Assessment and Plan: Suspected community acquired pneumonia CTA demonstrated diffuse interstitial opacities and groundglass opacities Cultures and urine antigens have been negative thus far, BAL sample negative thus far Currently on Levaquin day 7; Bactrim for PCP prophylaxis Appreciate pulmonology recommendations (3) Small cell lung cancer Current Visit: Yes Status: Chronic Assessment and Plan: History of small cell lung cancer status post chemotherapy and radiation Continues to follow oncology CTA chest on March 22 demonstrated new bilateral pulmonary nodules predominantly subpleural in location, largest of which 14 x 10 mm in the right upper lobe. Radiology differentials can include atypical infection versus recurrent/metastatic disease. He was also noted to have interstitial opacities with appearance most suggestive of NSIP or early UIP without honeycombing though drug-induced interstitial lung disease was noted to have a similar appearance CTA on February 23 demonstrated stable metastatic pulmonary nodules throughout the lungs, minimal increase in size of mediastinal and right hilar adenopathy, also noted to have interval increase in size of paraceliac lymph node measuring 4.1 x 3 cm in the upper abdomen and palpable with metastatic disease Oncology has been consulted Palliative is on board for further discussion Code(s): C34.90 - Malignant neoplasm of unspecified part of unspecified bronchus or lung (4) Hypertension Current Visit: Yes Status: Acute Assessment and Plan: - Continue current medication regimen and monitoring of blood pressures. (5) Goals of care, counseling/discussion Current Visit: Yes Status: Acute Assessment and Plan: The patient continues to decompensate worse daily, and at this point he continues to desaturate even on very high flow oxygen. Intubation and BiPAP continue to remain off the table according to the patient and family as a means of treatment. I am collaborating with both pulmonology and palliative care, and there is a good chance the patient will go to [facility] tomorrow. (6) DVT prophylaxis Current Visit: Yes Status: Acute Assessment and Plan: - Lovenox 100mg SQ BID. (7) Pulmonary embolism Current Visit: Yes Status: Acute Assessment and Plan: Probable small, left-sided subsegmental pulmonary embolus noted on CTA performed on 03/25/2019. Due to underlying malignancy, decision was made to proceed with an ticoagulation. - Continue Lovenox 100mg SQ BID. - Time Spent with Patient Total time spent is greater than 50% in coordination of care (as documented) at patient's floor/unit and/or counseling patient: Internal Medicine: Result - Labs CBC & Chem 7: 03/29/19 05:53 03/29/19 05:53 Labs: Short CBC 03/29/19 Range/Units 05:53 WBC 15.8 H D (4.3-11.1) K/mcL Hgb 14.3 (12.9-16.9) g/dL Hct 43.8 (37.5-50.1) % Plt Count 189 (140-400) K/mcL Neutrophils # 11.8 H (1.6-8.9) K/mcL BMP 03/29/19 05:53 Sodium 136 Potassium 4.3 Chloride 98 Carbon Dioxide 20 L BUN 48 H Creatinine 1.59 H Glucose 178 H Calcium 9.9 - ABG Interpretation ABG results: ABG ABG pH 7.42 pH Units (7.32-7.45) 03/25/19 12:05 ABG pCO2 46 mmHg (35-45) H 03/25/19 12:05 ABG pO2 76 mmHg (85-104) L 03/25/19 12:05 ABG O2 Saturation 95 % (95-98) 03/25/19 12:05 Consult Discharge Plan - Plan Referrals: Wang Nunes [Primary Care Provider] - 04/01/19 10:00 am <Chris Manning - Last Filed: 03/29/19 17:25> Hospitalist Progress Note - Encounter Date of Encounter: 03/29/19 Time of Encounter: 17:11 - Exam Vitals: Temp Pulse Resp BP Pulse Ox 98.0 F 106 34 116/72 89 03/29/19 16:38 03/29/19 16:38 03/29/19 16:38 03/29/19 16:38 03/29/19 16:38 - Assessment and Plan (1) Community acquired pneumonia Current Visit: Yes Status: Acute (2) Small cell lung cancer Current Visit: Yes Status: Chronic Code(s): C34.90 - Malignant neoplasm of unspecified part of unspecified bronchus or lung (3) Hypertension Current Visit: Yes Status: Acute (4) Acute respiratory failure with hypoxia Current Visit: Yes Status: Acute (5) DVT prophylaxis Current Visit: Yes Status: Acute (6) Goals of care, counseling/discussion Current Visit: Yes Status: Acute (7) Pulmonary embolism Current Visit: Yes Status: Acute - Time Spent with Patient Total time spent is greater than 50% in coordination of care (as documented) at patient's floor/unit and/or counseling patient: Internal Medicine: Result - Labs CBC & Chem 7: 03/29/19 05:53 03/29/19 05:53 Labs: Short CBC 03/29/19 Range/Units 05:53 WBC 15.8 H D (4.3-11.1) K/mcL Hgb 14.3 (12.9-16.9) g/dL Hct 43.8 (37.5-50.1) % Plt Count 189 (140-400) K/mcL Neutrophils # 11.8 H (1.6-8.9) K/mcL BMP 03/29/19 05:53 Sodium 136 Potassium 4.3 Chloride 98 Carbon Dioxide 20 L BUN 48 H Creatinine 1.59 H Glucose 178 H Calcium 9.9 - ABG Interpretation ABG results: ABG ABG pH 7.42 pH Units (7.32-7.45) 03/25/19 12:05 ABG pCO2 46 mmHg (35-45) H 03/25/19 12:05 ABG pO2 76 mmHg (85-104) L 03/25/19 12:05 ABG O2 Saturation 95 % (95-98) 03/25/19 12:05 - Attending Attestation I saw evaluated and examined this patient and my medical decision-making was reviewed with the Resident Physician, Orion Matute. I agree with the documented findings, disposition and treatment plan as described except to any changes set forth below. We independently had [id number] contact with the patient. Patient became very dyspneic last night. Was in respiratory distress. Was treated with BiPAP for a while but did not tolerate it. Presently he is on Deb. Feels somewhat comfortable. Denies any chest pain or palpitations. Any movement makes him very dyspneic. General: Patient is alert,severe distress, oriented x 3 ENT: Mucous membranes moist; Deb NC in place Respiratory: Patient continues to have good air entry bilaterally. coarse breath sounds. Dry crackles present at both bases. Using accessory muscles Cardiovascular: Tachycardic. s1 and s2 normal No clicks, rubs, gallops, or murmurs. No pedal edema Abdomen: Abdomen is soft, nontender. Bowel sounds are present Musculoskeletal: Spontaneously moving all extremities Skin: warm, dry, intact. Neuro: Alert oriented x 3 normal cranial nerves, no focal deficits Acute respiratory failure with hypoxia: Multifactorial. Due to bilateral pneumonia, lung cancer, pulmonary embolism, possible radiation pneumonitis and pulmonary edema. On Deb. Patient continues to have poor overall prognosis. Pulmonology following. Palliative care following. Started on Ativan to help with anxiety. Low-dose Lasix recommended by pulmonology. Will trial today. Bilateral Pneumonia: Patient is currently on Levaquin and Bactrim per pulmonology recommendations. Cultures have so far been negative. Fungal cultures are pending. Sinus Tachycardia:Heart rate improved. Continue beta eva. Small cell lung cancer: Poor prognosis. Progression of cancer noted on recent CT scan.Oncology, pulmonology following. Palliative care also consulted. Acute kidney injury: Creatinine 1.59 today. Monitor renal function closely while patient is receiving Lasix.m. Hypertension:Blood pressure is well controlled.. DVT prophylaxis with subcutaneous heparin Discussed plan of care with both patient and family. Continue current management. Palliative care following. Patient CODE STATUS is DNR/DNI. If his clinical condition does not improve, plan to transition to general inpatient hospice. <Orion Matute - Last Filed: 03/29/19 14:54> (2) Community acquired pneumonia Qualifiers: Laterality: right Lung location: unspecified part of lung Qualified Code(s): J18.9 - Pneumonia, unspecified organism (4) Hypertension Qualifiers: Hypertension type: essential hypertension Qualified Code(s): I10 - Essential (primary) hypertension (7) Pulmonary embolism Qualifiers: Pulmonary embolism type: other Chronicity: unspecified Acute cor pulmonale presence: without acute cor pulmonale Qualified Code(s): I26.99 - Other pulmonary embolism without acute cor pulmonale <Chris Manning - Last Filed: 03/29/19 17:25> (1) Community acquired pneumonia Qualifiers: Laterality: right Lung location: unspecified part of lung Qualified Code(s): J18.9 - Pneumonia, unspecified organism (3) Hypertension Qualifiers: Hypertension type: essential hypertension Qualified Code(s): I10 - Essential (primary) hypertension (7) Pulmonary embolism Qualifiers: Pulmonary embolism type: other Chronicity: unspecified Acute cor pulmonale presence: without acute cor pulmonale Qualified Code(s): I26.99 - Other pulmonary embolism without acute cor pulmonale
[2019-03-29] MEDS: Sennosides/Docusate Sodium TABLET PO SCH ×2 (08:43→20:02)
[2019-03-29] MEDS: levoFLOXacin 750 MG TABLET PO SCH (08:43)
[2019-03-29] MEDS: hydrOXYzine pamoate 25 MG CAPSULE PO PRN ×2 (09:03→20:01)
[2019-03-29] MEDS ORDERED: MORPHINE SUL Oral CONC 10 MG/0.5 ML ORAL.SYG SL PRN (10:34)
--- NOTE | 2019-03-29 11:04 | Palliative Progress Note ---
Date of Encounter: 03/29/19 Time of Encounter: 10:00 - Assessment and plan (1) Cancer associated pain Current Visit: Yes Status: Acute Assessment and plan: Patient has Basye/oxycodone available for pain. Oxycodone has been utilized x1 last 24 hours and Basye has not been used. Roxanol will be added for dyspnea which may help with his pain as well. Will d/c Basye and leave Oxycodone available PRN. (2) Dyspnea Current Visit: No Status: Acute Assessment and plan: He is now requiring Deb at 60L. Continues with IV atb/br onchodilators/steroids. Will begin diuresis today per hospitalist. Will also add SL Roxanol to assist with symptoms of dyspnea/air hunger and monitor. Qualifiers: Dyspnea type: shortness of breath Qualified Code(s): R06.02 - Shortness of breath; R06.00 - Dyspnea, unspecified; R06.01 - Orthopnea (3) Constipation Current Visit: Yes Status: Acute (4) Anxiety Current Visit: Yes Status: Acute Assessment and plan: Begin SL Lorazepam 0.5mg PRN and monitor. (5) Goals of care, counseling/discussion Current Visit: Yes Status: Acute Assessment and plan: D/W Sandra, sister Lo, other family members at bedside. Dr. Matute attended and updated on clinical status. Diuresis will be attempted today to see if improves his oxygen demand and shortness of breath. 40 min discussion with family and patient regarding further goals of care. They do desire to proceed with diuresis, however, understand that his prognosis is poor, and it is not likely to change the outcome. Patient has declined any surgical biopsy or invasive measure. He states, "I do not want another night like last night". Discussed that will initiate some comfort medications to help with his symptoms. Discussed that pt is appropriate for inpatient hospice transition if/when pt desires transition to comfort care. Will continue to follow closely. (6) Small cell lung cancer Current Visit: Yes Status: Chronic (7) Acute respiratory failure with hypoxia Current Visit: Yes Status: Acute (8) Pulmonary embolism Current Visit: Yes Status: Acute Qualifiers: Pulmonary embolism type: other Chronicity: unspecified Acute cor p ulmonale presence: without acute cor pulmonale Qualified Code(s): I26.99 - Other pulmonary embolism without acute cor pulmonale - Time Spent With Patient Total time spent is greater than 50% in coordination of care (as documented) at patient's floor/unit and/or counseling patient: - Subjective Interval history: Patient with resp distress overnight, notes reviewed. He is now on Deb at 60lPM. Agitation and restlessness during night but currently, He is calm - does awaken and can answer some questions, but drifts back to sleep. Family states with any exertion, oxygen levels still drop quickly. He denies pain at present. - Constitutional Vitals: Abnormal lab results WBC 15.8 K/mcL (4.3-11.1) H D 03/29/19 05:53 Hgb 12.8 g/dL (12.9-16.9) L 03/25/19 01:42 RDW 15.4 % (11.5-14.5) H 03/29/19 05:53 Plt Count 127 K/mcL (140-400) L 03/25/19 01:42 11.8 K/mcL (1.6-8.9) H 03/29/19 05:53 ABG pCO2 46 mmHg (35-45) H 03/25/19 12:05 ABG pO2 76 mmHg (85-104) L 03/25/19 12:05 ABG HCO3 30 mEq/L (21-27) H 03/25/19 12:05 ABG Total CO2 31 mEq/L (20-26) H 03/25/19 12:05 ABG Base Excess 4 mEq/L (-2 to 3) H 03/25/19 12:05 Sodium 134 mEq/L (136-145) L 03/28/19 02:56 Carbon Dioxide 20 mEq/L (23-29) L 03/29/19 05:53 BUN 48 mg/dL (8-23) H 03/29/19 05:53 1.59 mg/dL (0.70-1.30) H 03/29/19 05:53 Est GFR ( Amer) 53 (> 60) L 03/29/19 05:53 Est GFR (Non-Af Amer) 44 (> 60) L 03/29/19 05:53 30 (6-26) H 03/29/19 05:53 Glucose 178 mg/dL (70-105) H 03/29/19 05:53 POC Glucose 112 mg/dL (70-99) H 03/24/19 06:13 305 (280-300) H 03/27/19 03:49 Calcium 10.6 mg/dL (8.6-10.3) H 03/26/19 09:13 0.04 ng/mL (< 0.04) H* 03/26/19 09:13 Fluid Appearance Slightly Hazy (Clear) A 03/24/19 08:07 General appearance: Present: no acute distress - Respiratory Additional comments: Crackles throughout all lung summers. Breath sounds diminished - Cardiovascular Cardiovascular exam: Present: +S1, +S2, tachycardia - GI/Abdominal GI/Abdominal exam: Present: distended, normal bowel sounds, soft - Extremities Exam Extremities exam: Present: normal capillary refill, normal inspection - Neurological Exam Neurological exam: Present: alert, oriented X3, strengths equal and symetr throughout - Skin Skin exam: Present: dry, warm Palliative Quality Palliative Quality: Screen for Code Status: Yes, Screen for Goals of Care: Yes, Screen for Pain: Yes, If Pain Regimen Started, Initiate Bowel Regimen: Yes, Screen for Nausea/Vomitting: Yes Code Status: 03/22/19 15:09 Resuscitation Status: Active [RES] Routine Comment: Resuscitation Status: Full Code 03/27/19 12:05 DNR [Resuscitation Status: Active] [RES] Routine Comment: Resuscitation Status: [id number] - Labs CBC & Chem 7: 03/29/19 05:53 03/29/19 05:53 Labs: Laboratory Results - last 24 hr 03/29/19 03/29/19 05:53 05:53 WBC 15.8 H D RBC 4.83 Hgb 14.3 Hct 43.8 MCV 90.7 MCH 29.6 MCHC 32.6 RDW 15.4 H Plt Count 189 MPV 10.0 Immature Gran % 1.4 Seg Neutrophils % 74.6 Lymphocytes % 19.9 Monocytes % 3.9 Eosinophils % 0.0 Basophils % 0.2 Neutrophils # 11.8 H Lymphocytes # 3.1 Monocytes # 0.6 Eosinophils # 0.0 Basophils # 0.0 Sodium 136 Potassium 4.3 Chloride 98 Carbon Dioxide 20 L BUN 48 H Creatinine 1.59 H Est GFR ( Amer) 53 L Est GFR (Non-Af Amer) 44 L BUN/Creatinine Ratio 30 H Glucose 178 H Calculated Osmolality 299 Calcium 9.9 - ABG Interpretation ABG results: ABG ABG pH 7.42 pH Units (7.32-7.45) 03/25/19 12:05 ABG pCO2 46 mmHg (35-45) H 03/25/19 12:05 ABG pO2 76 mmHg (85-104) L 03/25/19 12:05 ABG O2 Saturation 95 % (95-98) 03/25/19 12:05 Palliative Scale - Palliative Performance Scale How ambulatory is this patient?: Full What is patient's level of activity and evidence of disease?: Normal activity and work, Some evidence of disease How much self-care assistance does patient require?: Full How much oral intake does the patient have?: Normal What is this patient's level of consciousness?: Full Palliative Performance Score: 90 % Consult Discharge Plan - Plan Referrals: Wang Nunes [Primary Care Provider] - 04/01/19 10:00 am
[2019-03-29] MEDS: Furosemide 40 MG/4 ML VIAL IVP SCH (11:25)
--- NOTE | 2019-03-29 11:48 | Oncology Inp Progress Note ---
<Sonia Roy L - Last Filed: 03/29/19 13:23> Date of Encounter: 03/29/19 Time of Encounter: 11:00 (1) Acute respiratory failure with hypoxia Current Visit: Yes Status: Acute Assessment and plan: Etiology likely multifactorial as discussed below He is now requiring Deb at 60L. Continues with IV ATB/bronchodilators/steroids, beginning trial of diuresis today. Palliative care added SL Roxanol to assist with symptoms of dyspnea/air hunger (2) Small cell lung cancer Current Visit: Yes Status: Chronic Assessment and plan: Small cell lung cancer, on 07/28/2018 he started chemotherapy with cisplatin etoposide completed 4 cycles, with concurrent radiation therapy. Developed subsequent pneumonitis symptoms, status post treatment with antibiotics and steroid courses Imaging findings on admission reviewed additional lung nodules suspicious for infection/recurrence, although pathology from FNA bronchoscopy does not reveal malignant findings. Discussed with patient and at bedside today, they do not wish to pursue fu rther means of biopsy and would like to transition to hospice once trial of lasix completed to optimize lung status if possible. His respiratory compromise is likely multifactorial in the setting of suspected recurrent small cell lung cancer, pulmonary edema vs. PNA and PE At this time, patient and family are requesting less aggressive approach and are not interested in further biopsy/treatment options. We will otherwise plan to sign off as palliative care and hospitalist team continue to work with patient. Please feel free to reach out with any further needs or should the patients clinical status improve and patient wish to discuss next steps in oncologic care. Oncology: Subj Interval history: Mr. Jensen is resting in bed, taking breathing treatment during moment. He is alert but drowsy and falls asleep during conversation. He is oriented to person and place. His and stepson are at bedside. Events noted overnight. Patient states he had "a rough night", agrees. He did not tolerate bipap well and has had increased agitation and anxiety. Following discussion with caregivers overnight and palliative care this morning, patient and have decided to place [id number]. He does not wish to have bipap placed again. He is planned for a lasix trial to see if this improves his respiratory status. At this time, they are not interested in pursuing further aggressive care or chemotherapy options and instead wish to pursue hospice route. - Constitutional General appearance: cooperative, no acute distress, no febrile Exam: Drowsy, falls asleep during conversations, currently on Deb at 60lPM - Head Head exam: Present: atraumatic - Respiratory Respiratory exam: Present: decreased breath sounds. Absent: respiratory distress - GI/Abdominal GI/Abdominal exam: Present: distended, normal bowel sounds, soft. Absent: tenderness - Extremities Exam Extremities exam: Absent: calf tenderness - Neurological Exam Neurological exam: Present: alert, no focal deficits, strengths equal and symetr throughout Additional comments: oriented to person/place - Psychiatric Psychiatric exam: Present: flat affect - Skin Skin exam: Present: dry, intact, normal color, warm Oncology: Obj Data - Labs CBC & Chem 7: 03/29/19 05:53 03/29/19 05:53 Consult Discharge Plan - Plan Referrals: Wang Nunes [Primary Care Provider] - 04/01/19 10:00 am Inpatient Charges Provider: Dr. Denis Dinh <Anup Dinh - Last Filed: 03/30/19 17:11> Date of Encounter: 03/30/19 (1) Small cell lung cancer Current Visit: Yes Status: Chronic Oncology: Subj Interval history: Patient seen bedside with family. Above events noted, patient/family do not want aggressive treatment, instead palliative measures for comfort. I examined this patient and my medical decision-making was reviewed with the Advanced Practice Nurse, Sonia Roy. I agree with the documented findings, disposition and treatment plan as described except to the extent set forth below . Oncology: Obj Data - Labs CBC & Chem 7: 03/30/19 09:51 03/30/19 09:51
[2019-03-29] MEDS ORDERED: Furosemide 20 MG/2 ML VIAL IVP ONE (16:00)
--- NOTE | 2019-03-29 17:06 | Pulmonology Progress Note ---
Date of Encounter: 03/29/19 Time of Encounter: 10:30 Assessment and Plan (1) Acute respiratory failure with hypoxia Current Visit: Yes Status: Acute Overall his condition is worsening and he felt better after he had bronchoscopy yesterday and now is more hypoxic. I have called pathology around here today and explained to them that we need result of biopsy as soon as possible and BAL shows evidence of acute inflammation which could be related to radiation. Systemic steroid dose has increased and discussed this with primary team. CT chest was done with evidence of probable pulmonary embolism, however with his lung cancer it will be safer to have him on anticoagulation and also diuresis as much as tolerated. Needs to continue follow-up on the result of bronchoscopy and I have explained this to the patient and his family at the bedside. I feel overall prognosis is poor especially with his CT chest findings. 5/6 patient is still requiring high FiO2 and significant hypoxia mainly when patient mobilize. I have discussed with the pathologist regarding his biopsy result which does not show any evidence of malignancies and acute inflammatory changes in the bronchoalveolar lavage. Since this is transbronchial biopsy, and that his limitations due to the size of the biopsy and my not reflect true disease and he denies no improvement, will consider consultation with thoracic surgeon for possible larger size biopsy. Diuresis as much as possible and continue current dose of systemic steroid. If cultures remain negative we will consider de-escalation. 5/7 patients today is lethargic, however he is comfortable and he has received narcotic and sedative for comfort. I have had extensive discussion with the family at the bedside regarding case care and explained to them about my recommendation which is outlined yesterday and ideally will need to open lung biopsy. Family does not want to have any aggressive approach or any surgeries because patient did not want that which is reasonable. Have discussed with the primary team and palliative team and due to diuresis as much as possible is recommended and hopefully that will help some of his pulmonary like edema. Noninvasive ventilation is recommended as long as patient is tolerating it. (2) Small cell lung cancer Current Visit: Yes Status: Chronic Subjective Principal diagnosis: Acute hypoxic respiratory failure Interval history: Patient is lethargic and he had received medication and he is sleepy and family at bedside Objective PUL Vital signs: Last Vital Signs Temp 98.0 F 03/29/19 16:38 Pulse 106 03/29/19 16:38 Resp 34 05/07/19 16:38 BP 116/72 03/29/19 16:38 Pulse Ox 89 03/29/19 16:38 General appearance: no acute distress, lethargic Eyes: nonicteric ENT: oropharynx dry Neck: supple Effort: mildly labored Auscultation: bilateral: rales Percussion: bilateral: not dull Tactile fremitus: bilateral: normal Cardiovascular: regular rate and rhythm Gastrointestinal: normoactive bowel sounds, non-distended Extremities: no cyanosis, edema normal mental status, non-focal exam Results - Laboratory Findings CBC and BMP: 03/29/19 05:53 03/29/19 05:53 ABG ABG pH 7.42 pH Units (7.32-7.45) 03/25/19 12:05 ABG pCO2 46 mmHg (35-45) H 03/25/19 12:05 ABG pO2 76 mmHg (85-104) L 03/25/19 12:05 ABG O2 Saturation 95 % (95-98) 03/25/19 12:05 Abnormal lab findings: Abnormal lab results WBC 15.8 K/mcL (4.3-11.1) H D 03/29/19 05:53 Hgb 12.8 g/dL (12.9-16.9) L 03/25/19 01:42 RDW 15.4 % (11.5-14.5) H 03/29/19 05:53 Plt Count 127 K/mcL (140-400) L 03/25/19 01:42 11.8 K/mcL (1.6-8.9) H 03/29/19 05:53 ABG pCO2 46 mmHg (35-45) H 03/25/19 12:05 ABG pO2 76 mmHg (85-104) L 03/25/19 12:05 ABG HCO3 30 mEq/L (21-27) H 03/25/19 12:05 ABG Total CO2 31 mEq/L (20-26) H 03/25/19 12:05 ABG Base Excess 4 mEq/L (-2 to 3) H 03/25/19 12:05 Sodium 134 mEq/L (136-145) L 03/28/19 02:56 Carbon Dioxide 20 mEq/L (23-29) L 03/29/19 05:53 BUN 48 mg/dL (8-23) H 03/29/19 05:53 1.59 mg/dL (0.70-1.30) H 03/29/19 05:53 Est GFR ( Amer) 53 (> 60) L 03/29/19 05:53 Est GFR (Non-Af Amer) 44 (> 60) L 03/29/19 05:53 30 (6-26) H 03/29/19 05:53 Glucose 178 mg/dL (70-105) H 03/29/19 05:53 POC Glucose 112 mg/dL (70-99) H 03/24/19 06:13 305 (280-300) H 03/27/19 03:49 Calcium 10.6 mg/dL (8.6-10.3) H 03/26/19 09:13 0.04 ng/mL (< 0.04) H* 03/26/19 09:13 Fluid Appearance Slightly Hazy (Clear) A 03/24/19 08:07 - Microbiology Findings Microbiology Findings: Microbiology, Last 48 Hours 03/22/19 12:00 Blood Culture - Final Peripheral Venipuncture No growth. Final report. 03/22/19 12:18 Blood Culture - Final Peripheral Venipuncture No growth. Final report. - Clinical Findings Intake & Output: Intake & Output 03/29/19 03/29/19 03/29/19 07:59 15:59 23:59 Intake Total 530 / 1060 530 / 1060 Output Total 550 / 750 200 / 750 Balance 530 / 310 -20 / 310 -200 / 310 Weight 94.8 kg Consult Discharge Plan - Plan Referrals: Wang Nunes [Primary Care Provider] - 04/01/19 10:00 am
[2019-03-29] MEDS: *HR* LORazepam Oral Conc 2 MG/ML SL PRN (18:47)
[2019-03-29] MEDS: *HR* OxyCODONE Immed Rel 5 MG TABLET PO PRN (20:02)
[2019-03-30] MEDS: Sulfamethoxazole/Trimeth 30 ML in D5% in Water 500 ML IVPB SCH ×3 (00:14→16:47)
[2019-03-30] MEDS: *HR* LORazepam Oral Conc 2 MG/ML SL PRN ×3 (00:14→14:53)
[2019-03-30] MEDS: methylPREDNISolone 125 MG/2 ML VIAL IVP SCH ×4 (00:14→23:58)
[2019-03-30] MEDS: Levalbuterol Neb 0.63 MG/3 ML IH SCH ×4 (03:37→21:59)
[2019-03-30] MEDS: *HR* Enoxaparin 100 MG/ML SYRINGE SQ SCH ×2 (05:37→16:47)
[2019-03-30] MEDS: *HR* OxyCODONE Immed Rel 5 MG TABLET PO PRN (05:38)
[2019-03-30] MEDS: hydrOXYzine pamoate 25 MG CAPSULE PO PRN (05:38)
[2019-03-30] MEDS: levoFLOXacin 750 MG TABLET PO SCH (07:50)
[2019-03-30] MEDS: Sennosides/Docusate Sodium TABLET PO SCH ×2 (07:50→21:51)
[2019-03-30] MEDS: Furosemide 40 MG/4 ML VIAL IVP SCH (07:52)
[2019-03-30 10:25] LABS: Basophils % 0.1 %; Hematocrit 38.6 % (37.5-50.1); Hemoglobin 12.9 g/dL (12.9-16.9); Lymphocytes # 1.4 K/mcL (0.6-4.6); Lymphocytes % 11.1 %; Mean Corpuscular HGB Conc 33.4 g/dL (31.6-35.5); Mean Corpuscular Hemoglobin 29.5 pg (28.0-33.3); Mean Corpuscular Volume 88.1 fL (83.0-100.0); Mean Platelet Volume 10.1 fL (9.4-12.4); Monocytes # 0.4 K/mcL (0.0-1.3); Neutrophils # 10.6 K/mcL (1.6-8.9); Platelet Count 171 K/mcL (140-400); Red Blood Count 4.38 M/mcL (4.19-5.50); Red Cell Distribution Width 15.5 % (11.5-14.5); Segmented Neutrophils % 84.8 %
[2019-03-30 10:29] LABS: Calcium 9.4 mg/dL (8.6-10.3); Potassium 4.7 mEq/L (3.5-5.1)
--- NOTE | 2019-03-30 11:27 | Palliative Progress Note ---
Date of Encounter: 03/30/19 Time of Encounter: 11:00 - Assessment and plan (1) Cancer associated pain Current Visit: Yes Status: Acute Assessment and plan: Continues with Oxycodone PRN. Utilized x2 last 24 hours. (2) Dyspnea Current Visit: No Status: Acute Assessment and plan: He is currently tolerating bipap. Continues with bronchodilators/steroids. Decreased renal function with Lasix, this was discontinued. He has Roxanol ordered PRN for air hunger, utilized x1 last 24 hours. Family expressed concern that they have "safety net" if he becomes severely distressed as he did night before last, and took a while to get hospitalist at bedside. Will order Fentanyl 25 mcg IV every hour if needed for severe dyspnea. Qualifiers: Dyspnea type: shortness of breath Qualified Code(s): R06.02 - Shortness of breath; R06.00 - Dyspnea, unspecified; R06.01 - Orthopnea (3) Constipation Current Visit: Yes Status: Acute (4) Anxiety Current Visit: Yes Status: Acute Assessment and plan: Continue SL Lorazepam 0.5mg. States he feels this is helpful. Utilized x3 last 24 hours. (5) Goals of care, counseling/discussion Current Visit: Yes Status: Acute Assessment and plan: Patient appears to be tolerating bipap at this time. Family at bedside desires to stay the course, but does want to ensure he is comfortable. I discussed with them that ultimately, his prognosis is likely poor. We discussed at length yesterday, that he is eligible for transition to inpatient hospice at any time, however, the aggressive monitoring would be discontinued, and he would be discharged and only care for by palliative/hospice team. Patient/family does not appear ready to make that transition at this time. Palliative will continue to follow closely. D/W Dr. Giovani gomez primary nurse Vanessa. Total time spent with patient, family, coordination of care 45 min. (6) Small cell lung cancer Current Visit: Yes Status: Chronic (7) Acute respiratory failure with hypoxia Current Visit: Yes Status: Acute (8) Pulmonary embolism Current Visit: Yes Status: Acute Qualifiers: Pulmonary embolism type: other Chronicity: unspecified Acute cor pul monale presence: without acute cor pulmonale Qualified Code(s): I26.99 - Other pulmonary embolism without acute cor pulmonale - Time Spent With Patient Total time spent is greater than 50% in coordination of care (as documented) at patient's floor/unit and/or counseling patient: - Subjective Interval history: Patient resting comfortable on bipap this am. Renal function worsened overnight , Furosemide has been stopped. Family reports he still becomes hypoxic with any activity. - Constitutional Vitals: Abnormal lab results WBC 12.5 K/mcL (4.3-11.1) H 03/30/19 09:51 Hgb 12.8 g/dL (12.9-16.9) L 03/25/19 01:42 RDW 15.5 % (11.5-14.5) H 03/30/19 09:51 Plt Count 127 K/mcL (140-400) L 03/25/19 01:42 10.6 K/mcL (1.6-8.9) H 03/30/19 09:51 ABG pCO2 46 mmHg (35-45) H 03/25/19 12:05 ABG pO2 76 mmHg (85-104) L 03/25/19 12:05 ABG HCO3 30 mEq/L (21-27) H 03/25/19 12:05 ABG Total CO2 31 mEq/L (20-26) H 03/25/19 12:05 ABG Base Excess 4 mEq/L (-2 to 3) H 03/25/19 12:05 Sodium 129 mEq/L (136-145) L 03/30/19 09:51 Chloride 94 mEq/L (98-107) L 03/30/19 09:51 Carbon Dioxide 20 mEq/L (23-29) L 03/29/19 05:53 BUN 63 mg/dL (8-23) H 03/30/19 09:51 2.05 mg/dL (0.70-1.30) H 03/30/19 09:51 Est GFR ( Amer) 39 (> 60) L 03/30/19 09:51 Est GFR (Non-Af Amer) 33 (> 60) L 03/30/19 09:51 31 (6-26) H 03/30/19 09:51 Glucose 167 mg/dL (70-105) H 03/30/19 09:51 POC Glucose 112 mg/dL (70-99) H 03/24/19 06:13 305 (280-300) H 03/27/19 03:49 Calcium 10.6 mg/dL (8.6-10.3) H 03/26/19 09:13 0.04 ng/mL (< 0.04) H* 03/26/19 09:13 Fluid Appearance Slightly Hazy (Clear) A 03/24/19 08:07 General appearance: Present: no acute distress - Respiratory Additional comments: Breath sounds diminished anteriorally. Bipap in place with o2 100% currently - Cardiovascular Cardiovascular exam: Present: tachycardia - GI/Abdominal GI/Abdominal exam: Present: distended, normal bowel sounds, soft - Extremities Exam Extremities exam: Present: normal capillary refill, normal inspection - Neurological Exam Neurological exam: Present: alert - Skin Skin exam: Present: dry, pallor, warm Palliative Quality Palliative Quality: Screen for Code Status: Yes, Screen for Goals of Care: Yes, Screen for Pain: Yes, If Pain Regimen Started, Initiate Bowel Regimen: Yes, Screen for Nausea/Vomitting: Yes Code Status: 03/22/19 15:09 Resuscitation Status: Active [RES] Routine Comment: Resuscitation Status: Full Code 03/27/19 12:05 DNR [Resuscitation Status: Active] [RES] Routine Comment: Resuscitation Status: [id number] - Labs CBC & Chem 7: 03/30/19 09:51 03/30/19 09:51 Labs: Laboratory Results - last 24 hr 03/30/19 03/30/19 09:51 09:51 WBC 12.5 H RBC 4.38 Hgb 12.9 Hct 38.6 MCV 88.1 MCH 29.5 MCHC 33.4 RDW 15.5 H Plt Count 171 MPV 10.1 Immature Gran % 1.0 Seg Neutrophils % 84.8 Lymphocytes % 11.1 Monocytes % 3.0 Eosinophils % 0.0 Basophils % 0.1 Neutrophils # 10.6 H Lymphocytes # 1.4 Monocytes # 0.4 Eosinophils # 0.0 Basophils # 0.0 Sodium 129 L Potassium 4.7 Chloride 94 L Carbon Dioxide 26 BUN 63 H Creatinine 2.05 H Est GFR ( Amer) 39 L Est GFR (Non-Af Amer) 33 L BUN/Creatinine Ratio 31 H Glucose 167 H Calculated Osmolality 290 Calcium 9.4 - ABG Interpretation ABG results: ABG ABG pH 7.42 pH Units (7.32-7.45) 03/25/19 12:05 ABG pCO2 46 mmHg (35-45) H 03/25/19 12:05 ABG pO2 76 mmHg (85-104) L 03/25/19 12:05 ABG O2 Saturation 95 % (95-98) 03/25/19 12:05 Palliative Scale - Palliative Performance Scale How ambulatory is this patient?: Full What is patient's level of activity and evidence of disease?: Normal activity and work, Some evidence of disease How much self-care assistance does patient require?: Full How much oral intake does the patient have?: Normal What is this patient's level of consciousness?: Full Palliative Performance Score: 90 % Consult Discharge Plan - Plan Referrals: Wang Nunes [Primary Care Provider] - 04/01/19 10:00 am
[2019-03-30] MEDS: MORPHINE SUL Oral CONC 10 MG/0.5 ML ORAL.SYG SL PRN (13:37)
--- NOTE | 2019-03-30 14:28 | Internal Med Progress Note ---
<Orion Matute - Last Filed: 03/30/19 15:21> Hospitalist Progress Note - Encounter Date of Encounter: 03/30/19 Time of Encounter: 10:10 - Subjective Interval History: Patient is seen and examined at bedside. He is on BiPAP at time of examination he has no acute complaints. He appears much more comfortable than he did yeste rday and he does not appear to be in respiratory distress. He did have several desaturation events overnight and continues to have poor oxygen saturation at time of examination however he does not appear cyanotic and does not appear uncomfortable. - Exam Vitals: Temp Pulse Resp BP Pulse Ox 98.2 F 91 34 105/67 90 03/30/19 12:00 03/30/19 12:00 03/30/19 12:00 03/30/19 12:00 03/30/19 12:00 Exam: General: AAO 3, no acute distress, answers questions appropriately Head: normocephalic, atraumatic Eyes: BRIAN, no icterus Cardio: RRR, no mumurs, rubs, or gallops Respiratory: Diminished breath sounds bilaterally, no wheezing or rales. Some crackles in the lower lung summers. Abd: normal bowel sounds, no gaurding or rigidity Extremties: no pedal edema, pulses equal bilaterally, warm Skin: warm, dry, intact - Assessment and Plan (1) Acute respiratory failure with hypoxia Current Visit: Yes Status: Acute Assessment and Plan: Likely multifactorial etiology, including pneumonia in setting of underlying small cell lung cancer with metastasis. Radiation pneumonitis remains in the d ifferential diagnosis. Attempted diuresis with Lasix however patient experienced significant bump in serum creatinine, however he did have significant symptomatic relief I will stop the Lasix administration at this time, continue to monitor fluid intake Strict I's and O's Solu-Medrol 80mg q8h Duonebs, titrate oxygen Continuous pulse oximetry Treat pneumonia as above Appreciate continued following by pulmonology (2) Community acquired pneumonia Current Visit: Yes Status: Acute Assessment and Plan: Suspected community acquired pneumonia CTA demonstrated diffuse interstitial opacities and groundglass opacities Cultures and urine antigens have been negative thus far, BAL sample negative thus far Currently on Levaquin; Bactrim for PCP empiric coverage Appreciate pulmonology recommendations (3) Small cell lung cancer Current Visit: Yes Status: Chronic Assessment and Plan: History of small cell lung cancer status post chemotherapy and radiation Continues to follow oncology CTA chest on March 22 demonstrated new bilateral pulmonary nodules predominantly subpleural in location, largest of which 14 x 10 mm in the right upper lobe. Radiology differentials can include atypical infection versus recurr ent/metastatic disease. He was also noted to have interstitial opacities with appearance most suggestive of NSIP or early UIP without honeycombing though drug-induced interstitial lung disease was noted to have a similar appearance CTA on February 23 demonstrated stable metastatic pulmonary nodules throughout the lungs, minimal increase in size of mediastinal and right hilar adenopathy, also noted to have interval increase in size of paraceliac lymph node measuring 4.1 x 3 cm in the upper abdomen and palpable with metastatic disease Oncology has been consulted Palliative is on board for further discussion Code(s): C34.90 - Malignant neoplasm of unspecified part of unspecified bronchus or lung (4) Hypertension Current Visit: Yes Status: Acute Assessment and Plan: - Continue current medication regimen and monitoring of blood pressures. (5) Pulmonary embolism Current Visit: Yes Status: Acute Assessment and Plan: Probable small, left-sided subsegmental pulmonary embolus noted on CTA performed on 03/25/2019. Due to underlying malignancy, decision was made to proceed with an ticoagulation. - Continue Lovenox 100mg SQ BID. (6) Goals of care, counseling/discussion Current Visit: Yes Status: Acute Assessment and Plan: The patient continues to decompensate worse daily, and at this point he continues to desaturate even on very high flow oxygen. Intubation and BiPAP continue to remain off the table according to the patient and family as a means of treatment. I am collaborating with both pulmonology and palliative care, and there is a good chance the patient will go to [facility] during this hospital admission. This will likely depend on the patient's oxygen saturations as well as his level of comfort. (7) DVT prophylaxis Current Visit: Yes Status: Acute Assessment and Plan: - Lovenox 100mg SQ BID. (8) Acute kidney injury Current Visit: Yes Status: Acute Assessment and Plan: Acute kidney injury likely secondary to multifactorial etiology Patient is on Bactrim and has also been aggressively diuresed with Lasix due to respiratory failure I suspect that the Lasix is the larger culprit in this situation given timing, however initial injury did occur at the same time Bactrim was started Still, without final cultures it is concerning to stop Bactrim at this time I will hold Lasix for now and continue to monitor the patient's respiratory function Repeat BMP in the morning - Time Spent with Patient Total time spent is greater than 50% in coordination of care (as documented) at patient's floor/unit and/or counseling patient: Internal Medicine: Result - Labs CBC & Chem 7: 03/30/19 09:51 03/30/19 09:51 Labs: Short CBC 03/30/19 Range/Units 09:51 WBC 12.5 H (4.3-11.1) K/mcL Hgb 12.9 (12.9-16.9) g/dL Hct 38.6 (37.5-50.1) % Plt Count 171 (140-400) K/mcL Neutrophils # 10.6 H (1.6-8.9) K/mcL BMP 03/30/19 09:51 Sodium 129 L Potassium 4.7 Chloride 94 L Carbon Dioxide 26 BUN 63 H Creatinine 2.05 H Glucose 167 H Calcium 9.4 - ABG Interpretation ABG results: ABG ABG pH 7.42 pH Units (7.32-7.45) 03/25/19 12:05 ABG pCO2 46 mmHg (35-45) H 03/25/19 12:05 ABG pO2 76 mmHg (85-104) L 03/25/19 12:05 ABG O2 Saturation 95 % (95-98) 03/25/19 12:05 Consult Discharge Plan - Plan Referrals: Wang Nunes [Primary Care Provider] - 04/01/19 10:00 am <Stewart Meraz - Last Filed: 03/30/19 16:14> Hospitalist Progress Note - Encounter Date of Encounter: 03/30/19 - Exam Vitals: Temp Pulse Resp BP Pulse Ox 98.2 F 91 30 105/67 91 03/30/19 12:00 03/30/19 12:00 03/30/19 15:54 03/30/19 12:00 03/30/19 15:54 - Assessment and Plan (1) Community acquired pneumonia Current Visit: Yes Status: Acute (2) Small cell lung cancer Current Visit: Yes Status: Chronic Code(s): C34.90 - Malignant neoplasm of unspecified part of unspecified bronchus or lung (3) Hypertension Current Visit: Yes Status: Acute (4) Acute respiratory failure with hypoxia Current Visit: Yes Status: Acute (5) DVT prophylaxis Current Visit: Yes Status: Acute (6) Goals of care, counseling/discussion Current Visit: Yes Status: Acute (7) Pulmonary embolism Current Visit: Yes Status: Acute (8) Acute kidney injury Current Visit: Yes Status: Acute (9) Acute renal failure Current Visit: Yes Status: Suspected (10) Pneumonia Current Visit: Yes Status: Suspected - Time Spent with Patient Total time spent is greater than 50% in coordination of care (as documented) at patient's floor/unit and/or counseling patient: Internal Medicine: Result - Labs CBC & Chem 7: 03/30/19 09:51 03/30/19 09:51 Labs: Short CBC 03/30/19 Range/Units 09:51 WBC 12.5 H (4.3-11.1) K/mcL Hgb 12.9 (12.9-16.9) g/dL Hct 38.6 (37.5-50.1) % Plt Count 171 (140-400) K/mcL Neutrophils # 10.6 H (1.6-8.9) K/mcL BMP 03/30/19 09:51 Sodium 129 L Potassium 4.7 Chloride 94 L Carbon Dioxide 26 BUN 63 H Creatinine 2.05 H Glucose 167 H Calcium 9.4 - ABG Interpretation ABG results: ABG ABG pH 7.42 pH Units (7.32-7.45) 03/25/19 12:05 ABG pCO2 46 mmHg (35-45) H 03/25/19 12:05 ABG pO2 76 mmHg (85-104) L 03/25/19 12:05 ABG O2 Saturation 95 % (95-98) 03/25/19 12:05 - Attending Attestation I examined this patient and my medical decision-making was reviewed with the Resident Physician on 03/30/19. I agree with the documented findings, disposition and treatment plan as described except to the extent set forth below. Mr Jensen is currently admitted for acute respiratory failure. He remains moderate to high risk due to potential for worsening clinical status. Mr Jensen is on bipap at this time. He says he feels somewhat better. No fever or chill. No CP. Some cough. No GI issues. Exam alert. Mild resp distress at rest on bipap Mucus membranes dry Heart reg and not tachy Crackles R side Abd soft Moves all extremities Some edema I/P 1. Acute respiratory failure - currently on bipap. Continue as is for now. 2. Acute renal failure - most like ATN due to lasix plus Bactrim. 3. Pneumonia on IV abx 4. Small cell lung cancer 5. HTN - controlled currently 6. PE - currently on Lovenox Appreciate pulm and palliative input. Further diagnoses and plan as above. <Orion Matute - Last Filed: 03/30/19 15:21> (2) Community acquired pneumonia Qualifiers: Laterality: right Lung location: unspecified part of lung Qualified Code(s): J18.9 - Pneumonia, unspecified organism (4) Hypertension Qualifiers: Hypertension type: essential hypertension Qualified Code(s): I10 - Essential (primary) hypertension (5) Pulmonary embolism Qualifiers: Pulmonary embolism type: other Chronicity: unspecified Acute cor pulmonale presence: without acute cor pulmonale Qualified Code(s): I26.99 - Other pulmonary embolism without acute cor pulmonale <Stewart Meraz - Last Filed: 03/30/19 16:14> (1) Community acquired pneumonia Qualifiers: Laterality: right Lung location: lower lobe of lung Qualified Code(s): J18.1 - Lobar pneumonia, unspecified organism (3) Hypertension Qualifiers: Hypertension type: essential hypertension Qualified Code(s): I10 - Essential (primary) hypertension (7) Pulmonary embolism Qualifiers: Pulmonary embolism type: other Chronicity: unspecified Acute cor pulmonale presence: without acute cor pulmonale Qualified Code(s): I26.99 - Other pulmonary embolism without acute cor pulmonale (9) Acute renal failure Qualifiers: Acute renal failure type: with acute tubular necrosis Qualified Code(s): N17.0 - Acute kidney failure with tubular necrosis (10) Pneumonia Qualifiers: Pneumonia type: due to other aerobic Gram-negative bacteria Laterality: bilateral Lung location: lower lobe of lung Qualified Code(s): J15.6 - Pneumonia due to other Gram-negative bacteria
--- NOTE | 2019-03-30 16:56 | Pulmonology Progress Note ---
Date of Encounter: 03/30/19 Time of Encounter: 16:55 Assessment and Plan (1) Acute respiratory failure with hypoxia Status: Acute Overall his condition is worsening and he felt better after he had bronchoscopy yesterday and now is more hypoxic. I have called pathology around here today and explained to them that we need result of biopsy as soon as possible and BAL shows evidence of acute inflammation which could be related to radiation. Systemic steroid dose has increased and discussed this with primary team. CT chest was done with evidence of probable pulmonary embolism, however with his lung cancer it will be safer to have him on anticoagulation and also diuresis as much as tolerated. Needs to continue follow-up on the result of bronchoscopy and I have explained this to the patient and his family at the bedside. I feel overall prognosis is poor especially with his CT chest findings. 03/28 patient is still requiring high FiO2 and significant hypoxia mainly when p atient mobilize. I have discussed with the pathologist regarding his biopsy result which does not show any evidence of malignancies and acute inflammatory changes in the bronchoalveolar lavage. Since this is transbronchial biopsy, and that his limitations due to the size of the biopsy and my not reflect true disease and he denies no improvement, will consider consultation with thoracic surgeon for possible larger size biopsy. Diuresis as much as possible and continue current dose of systemic steroid. If cultures remain negative we will consider de-escalation. 03/29 patients today is lethargic, however he is comfortable and he has received narcotic and sedative for comfort. I have had extensive discussion with the family at the bedside regarding case care and explained to them about my r ecommendation which is outlined yesterday and ideally will need to open lung biopsy. Family does not want to have any aggressive approach or any surgeries because patient did not want that which is reasonable. Have discussed with the primary team and palliative team and due to diuresis as much as possible is recommended and hopefully that will help some of his pulmonary like edema. Noninvasive ventilation is recommended as long as patient is tolerating it. 03/30 patient examined and his oxygen saturation was around 83% on the high flow oxygen and I have explained to him we need to try noninvasive ventilation. He agreed to try BiPAP and then I have changed the mode to CPAP for the comfort he seems to be more comfortable on the BiPAP. Talk to the respiratory therapist at the bedside to continue BiPAP at this time and to give him a break when he wants that. If his oxygen saturation remained within acceptable range then he can be mobilized and out of bed to the chair. I have discussed this with the family at the bedside. Unfortunately, it does not appear diuresis has helped significantly so far. (2) Small cell lung cancer Status: Chronic Subjective Principal diagnosis: Acute hypoxic respiratory failure Interval history: Patient is lethargic and he had received medication and he is sleepy and family at bedside and remain hypoxic. Objective PUL Vital signs: Last Vital Signs Temp 98.2 F 03/30/19 12:00 Pulse 91 03/30/19 12:00 Resp 31 03/30/19 16:29 BP 100/70 03/30/19 16:29 Pulse Ox 90 03/30/19 16:29 General appearance: appears uncomfortable Eyes: nonicteric ENT: oropharynx dry Neck: supple Effort: mildly labored Auscultation: bilateral: rales Percussion: bilateral: not dull Cardiovascular: regular rate and rhythm Gastrointestinal: normoactive bowel sounds, non-distended Extremities: no edema, cyanosis normal mental status, non-focal exam mood appropriate Results - Laboratory Findings CBC and BMP: 03/31/19 02:45 03/31/19 13:12 ABG ABG pH 7.42 pH Units (7.32-7.45) 03/25/19 12:05 ABG pCO2 46 mmHg (35-45) H 03/25/19 12:05 ABG pO2 76 mmHg (85-104) L 03/25/19 12:05 ABG O2 Saturation 95 % (95-98) 03/25/19 12:05 Abnormal lab findings: Abnormal lab results WBC 12.5 K/mcL (4.3-11.1) H 03/30/19 09:51 Hgb 12.8 g/dL (12.9-16.9) L 03/25/19 01:42 RDW 15.5 % (11.5-14.5) H 03/30/19 09:51 Plt Count 127 K/mcL (140-400) L 03/25/19 01:42 10.6 K/mcL (1.6-8.9) H 03/30/19 09:51 ABG pCO2 46 mmHg (35-45) H 03/25/19 12:05 ABG pO2 76 mmHg (85-104) L 03/25/19 12:05 ABG HCO3 30 mEq/L (21-27) H 03/25/19 12:05 ABG Total CO2 31 mEq/L (20-26) H 03/25/19 12:05 ABG Base Excess 4 mEq/L (-2 to 3) H 03/25/19 12:05 Sodium 129 mEq/L (136-145) L 03/30/19 09:51 Chloride 94 mEq/L (98-107) L 03/30/19 09:51 Carbon Dioxide 20 mEq/L (23-29) L 03/29/19 05:53 BUN 63 mg/dL (8-23) H 03/30/19 09:51 2.05 mg/dL (0.70-1.30) H 03/30/19 09:51 Est GFR ( Amer) 39 (> 60) L 03/30/19 09:51 Est GFR (Non-Af Amer) 33 (> 60) L 03/30/19 09:51 31 (6-26) H 03/30/19 09:51 Glucose 167 mg/dL (70-105) H 03/30/19 09:51 POC Glucose 112 mg/dL (70-99) H 03/24/19 06:13 305 (280-300) H 03/27/19 03:49 Calcium 10.6 mg/dL (8.6-10.3) H 03/26/19 09:13 0.04 ng/mL (< 0.04) H* 03/26/19 09:13 Fluid Appearance Slightly Hazy (Clear) A 03/24/19 08:07 - Clinical Findings Intake & Output: Intake & Output 03/30/19 03/30/19 03/30/19 07:59 15:59 23:59 Intake Total 530 / 1060 530 / 1060 Output Total 340 / 940 0 / 940 600 / 940 Balance 190 / 120 530 / 120 -600 / 120 Weight 94.801 kg Consult Discharge Plan - Plan Referrals: Wang Nunes [Primary Care Provider] -
[2019-03-30] MEDS: *HR* FentaNYL (PF) 100 MCG/2 ML VIAL IVP PRN ×2 (17:45→21:53)
[2019-03-30] MEDS ORDERED: OXYCODONE Oral CONC 10 MG/0.5 ML ORAL.SYG SL PRN (17:58)
[2019-03-31] MEDS: *HR* FentaNYL (PF) 100 MCG/2 ML VIAL IVP PRN ×9 (00:02→22:11)
[2019-03-31] MEDS: Sulfamethoxazole/Trimeth 30 ML in D5% in Water 500 ML IVPB SCH (00:05)
[2019-03-31 02:55] LABS: Basophils % 0.1 %; Hematocrit 38.8 % (37.5-50.1); Immature Granulocytes % 0.8 % (0-4); Lymphocytes # 1.4 K/mcL (0.6-4.6); Lymphocytes % 10.8 %; Mean Corpuscular HGB Conc 33.5 g/dL (31.6-35.5); Mean Corpuscular Volume 86.4 fL (83.0-100.0); Mean Platelet Volume 9.9 fL (9.4-12.4); Monocytes # 0.4 K/mcL (0.0-1.3); Monocytes % 3.3 %; Neutrophils # 11.2 K/mcL (1.6-8.9); Platelet Count 169 K/mcL (140-400); Red Blood Count 4.49 M/mcL (4.19-5.50); Red Cell Distribution Width 15.4 % (11.5-14.5)
[2019-03-31 03:18] LABS: Albumin 3.3 g/dL (3.5-5.7); Albumin/Globulin Ratio 1.1 (1.1-2.2); Bilirubin,Total 0.4 mg/dL (0.3-1.0); Calcium 9.4 mg/dL (8.6-10.3); Globulin 2.9 g/dL (2.4-3.5); Potassium 5.2 mEq/L (3.5-5.1); Total Protein 6.2 g/dL (6.4-8.9)
[2019-03-31] MEDS: Levalbuterol Neb 0.63 MG/3 ML IH SCH ×4 (03:32→22:06)
[2019-03-31] MEDS: *HR* Enoxaparin 100 MG/ML SYRINGE SQ SCH ×2 (05:00→16:56)
[2019-03-31] MEDS ORDERED: Haloperidol Lactate 5 MG/ML VIAL IVP ONE (05:37)
[2019-03-31] MEDS ORDERED: 0.9 % Sodium Chloride 250 ML IVC ONE (06:52)
[2019-03-31] MEDS ORDERED: 0.9 % Sodium Chloride 1,000 ML IVC SCH (07:00)
[2019-03-31] MEDS: Sennosides/Docusate Sodium TABLET PO SCH (08:11)
[2019-03-31] MEDS: levoFLOXacin 750 MG TABLET PO SCH (08:11)
[2019-03-31] MEDS: methylPREDNISolone 125 MG/2 ML VIAL IVP SCH ×2 (08:23→16:14)
[2019-03-31] MEDS ORDERED: Milk and Molasses Enema 200 ML RC PRN (11:36)
[2019-03-31] MEDS ORDERED: Bisacodyl 10 MG RECTAL SUPPOSITORY RC ONE (11:36)
--- NOTE | 2019-03-31 11:40 | Palliative Progress Note ---
Date of Encounter: 03/31/19 Time of Encounter: 09:40 - Assessment and plan (1) Cancer associated pain Current Visit: Yes Status: Acute Assessment and plan: Per patient pain is mild today. He received no doses of Oycodone, but several doses of Fentanyl IV related to dyspnea. Will discontinue Oxycodone. (2) Dyspnea Current Visit: No Status: Acute Assessment and plan: Patient is on BiPAP, remains anxious due to feeling of claustrophobia, however he wants to continue on the mask for fear of air hunger. Fentanyl 25 mg q1hr prn in place, patient receiving a dose about every 2 hours, 6 doses in the last 12 hours. In between he looks dyspneic and anxious. Ativan in place, will schedule q6 hours. Qualifiers: Dyspnea type: shortness of breath Qualified Code(s): R06.02 - Shortness of breath; R06.00 - Dyspnea, unspecified; R06.01 - Orthopnea (3) Constipation Current Visit: Yes Status: Acute (4) Anxiety Current Visit: Yes Status: Acute Assessment and plan: Patient remains very anxious, and uncomfortable on BiPAP. Ativan in place, but not used. Patient not tolerating PO Will give one dose IV now, then schedule q6hrs (5) Goals of care, counseling/discussion Current Visit: Yes Status: Acute Assessment and plan: Patient is on BiPAP, remains anxious due to feeling of claustrophobia, however he wants to continue on the mask for fear of air hunger. Discussed with patient, Sandra and sister Lo. THey are aware of clinical course and extremely poor prognosis. However, not yet ready for transition to hospice care. Patient asked if he was going to in agony, explained that all aggressive measures w ill be taken to treat air hunger, but as a result he may have to be sedated. Patient at this time wants to continue on current level of care, but with focus on comfort. Emotional support provided. Palliative care continue to follow and manage symptoms. (6) Acute respiratory failure with hypoxia Current Visit: Yes Status: Acute Assessment and plan: Patient is now BiPAP dependent, having episodes of desaturation on BiPAP, unable to tolerate POs. (7) Palliative care encounter Current Visit: Yes Status: Acute (8) Small cell lung cancer Current Visit: Yes Status: Chronic - Time Spent With Patient Total time spent is greater than 50% in coordination of care (as documented) at patient's floor/unit and/or counseling patient: Greater than 35 minutes - Subjective Interval history: Patient AAOx3, tolerating the BiPAP. Dot and sister Lo at the bedside. Complaining of constipation. Mild diffuse abdominal pain and back pain. - Constitutional Vitals: Abnormal lab results WBC 13.2 K/mcL (4.3-11.1) H 03/31/19 02:45 Hgb 12.8 g/dL (12.9-16.9) L 03/25/19 01:42 RDW 15.4 % (11.5-14.5) H 03/31/19 02:45 Plt Count 127 K/mcL (140-400) L 03/25/19 01:42 11.2 K/mcL (1.6-8.9) H 03/31/19 02:45 ABG pCO2 46 mmHg (35-45) H 03/25/19 12:05 ABG pO2 76 mmHg (85-104) L 03/25/19 12:05 ABG HCO3 30 mEq/L (21-27) H 03/25/19 12:05 ABG Total CO2 31 mEq/L (20-26) H 03/25/19 12:05 ABG Base Excess 4 mEq/L (-2 to 3) H 03/25/19 12:05 Sodium 131 mEq/L (136-145) L 03/31/19 02:45 Potassium 5.2 mEq/L (3.5-5.1) H 03/31/19 02:45 Chloride 95 mEq/L (98-107) L 03/31/19 02:45 Carbon Dioxide 20 mEq/L (23-29) L 03/29/19 05:53 BUN 78 mg/dL (8-23) H 03/31/19 02:45 2.34 mg/dL (0.70-1.30) H 03/31/19 02:45 Est GFR ( Amer) 34 (> 60) L 03/31/19 02:45 Est GFR (Non-Af Amer) 28 (> 60) L 03/31/19 02:45 33 (6-26) H 03/31/19 02:45 Glucose 123 mg/dL (70-105) H 03/31/19 02:45 POC Glucose 112 mg/dL (70-99) H 03/24/19 06:13 305 (280-300) H 03/27/19 03:49 Calcium 10.6 mg/dL (8.6-10.3) H 03/26/19 09:13 0.04 ng/mL (< 0.04) H* 03/26/19 09:13 6.2 g/dL (6.4-8.9) L 03/31/19 02:45 3.3 g/dL (3.5-5.7) L 03/31/19 02:45 Fluid Appearance Slightly Hazy (Clear) A 03/24/19 08:07 Exam: General appearance: appears anxious, NAD - Respiratory Additional comments: Breath sounds diminished anteriorally. Bipap in place with o2 100% currently - Cardiovascular Cardiovascular exam: Present: tachycardia - GI/Abdominal GI/Abdominal exam: Present: distended, normal bowel sounds, soft - Extremities Exam Extremities exam: Present: normal capillary refill, normal inspection - Neurological Exam Neurological exam: Present: alert - Skin Skin exam: Present: dry, pallor, warm Palliative Quality Palliative Quality: Screen for Code Status: Yes, Screen for Goals of Care: Yes, Screen for Pain: Yes, If Pain Regimen Started, Initiate Bowel Regimen: Yes, Screen for Nausea/Vomitting: Yes Code Status: 03/22/19 15:09 Resuscitation Status: Active [RES] Routine Comment: Resuscitation Status: Full Code 03/27/19 12:05 DNR [Resuscitation Status: Active] [RES] Routine Comment: Resuscitation Status: [id number] - Labs CBC & Chem 7: 03/31/19 02:45 03/31/19 02:45 Labs: Laboratory Results - last 24 hr 03/31/19 03/31/19 02:45 02:45 WBC 13.2 H RBC 4.49 Hgb 13.0 Hct 38.8 MCV 86.4 MCH 29.0 MCHC 33.5 RDW 15.4 H Plt Count 169 MPV 9.9 Immature Gran % 0.8 Seg Neutrophils % 85.0 Lymphocytes % 10.8 Monocytes % 3.3 Eosinophils % 0.0 Basophils % 0.1 Neutrophils # 11.2 H Lymphocytes # 1.4 Monocytes # 0.4 Eosinophils # 0.0 Basophils # 0.0 Sodium 131 L Potassium 5.2 H Chloride 95 L Carbon Dioxide 27 BUN 78 H Creatinine 2.34 H Est GFR ( Amer) 34 L Est GFR (Non-Af Amer) 28 L BUN/Creatinine Ratio 33 H Glucose 123 H Calculated Osmolality 297 Calcium 9.4 Total Bilirubin 0.4 AST 21 ALT 15 Alkaline Phosphatase 91 Serum Total Protein 6.2 L Albumin 3.3 L Globulin 2.9 Albumin/Globulin Ratio 1.1 - ABG Interpretation ABG results: ABG ABG pH 7.42 pH Units (7.32-7.45) 03/25/19 12:05 ABG pCO2 46 mmHg (35-45) H 03/25/19 12:05 ABG pO2 76 mmHg (85-104) L 03/25/19 12:05 ABG O2 Saturation 95 % (95-98) 03/25/19 12:05 Palliative Scale - Palliative Performance Scale How ambulatory is this patient?: Full What is patient's level of activity and evidence of disease?: Normal activity and work, Some evidence of disease How much self-care assistance does patient require?: Full How much oral intake does the patient have?: Normal What is this patient's level of consciousness?: Full Palliative Performance Score: 90 % Consult Discharge Plan - Plan Referrals: Wang Nunes [Primary Care Provider] -
[2019-03-31] MEDS: *HR* LORazepam 2 MG/ML VIAL IVP PRN ×2 (11:45→19:23)
[2019-03-31] MEDS ORDERED: *HR* LORazepam 2 MG/ML VIAL IVP ONE (12:10)
[2019-03-31 13:42] LABS: Calcium 9.7 mg/dL (8.6-10.3); Potassium 5.5 mEq/L (3.5-5.1)
--- NOTE | 2019-03-31 13:57 | Internal Med Progress Note ---
<Amandeep Lo - Last Filed: 03/31/19 13:45> Hospitalist Progress Note - Encounter Date of Encounter: 03/31/19 Time of Encounter: 09:00 - Subjective Interval History: Patient seen and examined. He remains on BiPAP, but is not currently in any respiratory distress. He does have shortness of breath when he is not on BiPAP, and he has even had some desaturations on BiPAP. He reports he is anxious, but has no other acute complaints. Discussed with the patient and his sister about possible transition to Hospice care, which they are expecting, but not entirely ready for at this time. - Exam Vitals: Temp Pulse Resp BP Pulse Ox 98.0 F 100 29 124/74 98 03/31/19 12:44 03/31/19 12:44 03/31/19 12:44 03/31/19 12:44 03/31/19 12:44 Exam: GEN: No acute distress, A&O3 HEAD: Atraumatic, normocephalic EYES: Pupils symmetric, sclera white, conjunctiva pink HEART: RRR, normal S1 and S2, no murmurs LUNGS: Diminished bilaterally with crackles in the bases, no wheezes or rhonchi ABD: Soft, nontender, nondistended, bowel sounds present EXT: No edema noted, pulses 2/4 NEURO: No focal deficits, cooperative with exam - Assessment and Plan (1) Acute respiratory failure with hypoxia Current Visit: Yes Status: Acute Assessment and Plan: Multifactorial etiology including pneumonia and small cell lung cancer with metastasis Continue BiPAP support, duonebs, steroids, and levaquin Attempted diuresis has been stopped due to LAYNE - he was given 250 bolus of IV fluids and gentle hydration for a total of around 800ml - discontinue bactrim at this time with worsening renal function Strict I/O's and daily weights He continues to decompensate on BiPAP, but is not ready for discontinuation at this time Appreciate recommendations from pulmonology (2) Community acquired pneumonia Current Visit: Yes Status: Acute Assessment and Plan: CTA demonstrated diffuse interstitial opacities and groundglass opacities Cultures and urine antigens have been negative so far, BAL sample negative thus far Currently on Levaquin (3) Small cell lung cancer Current Visit: Yes Status: Chronic Assessment and Plan: History of small cell lung cancer status post chemotherapy and radiation. Continues to follow oncology CTA chest 03/22/19: new bilateral pulmonary nodules predominantly subpleural in location, largest of which 14 x 10 mm in the right upper lobe. Radiology differentials can include atypical infection versus recurrent/metastatic disease. He was also noted to have interstitial opacities with appearance most suggestive of NSIP or early UIP without honeycombing though drug-induced interstitial lung disease was noted to have a similar appearance CTA 02/23/19: stable metastatic pulmonary nodules throughout the lungs, minimal increase in size of mediastinal and right hilar adenopathy, also noted to have interval increase in size of paraceliac lymph node measuring 4.1 x 3 cm in the upper abdomen and palpable with metastatic disease Oncology consulted, but family wanting less aggressive approach Palliative following for on-going discussion of symptom management and GOC (4) Goals of care, counseling/discussion Current Visit: Yes Status: Acute Assessment and Plan: Patient continues to decompensate and desaturate despite BiPAP Patient and family wanting less aggressive treatment and symptom control Palliative care is following and working to manage his pain and anxiety At some point he will likely go GIP, even if initially on BiPAP (5) Pulmonary embolism Current Visit: Yes Status: Acute Assessment and Plan: Probable small left-sided subsegmental PE on CTA 03/25/19 With underlying malignancy, will continue lovenox BID (6) Anxiety Current Visit: Yes Status: Acute Assessment and Plan: Patient with continued anxiety. Having difficulty with PO Ativan, so switched to IV Palliative has now scheduled Ativan Q6H for better control (7) Acute kidney injury Current Visit: Yes Status: Acute Assessment and Plan: Multifactorial etiology with recent Bactrim use and aggressive diuresis with Lasix - both medications have now been stopped Given 250ml NS bolus and gentle hydration for a total of about 800ml Renal function continued to worsen today Continue to avoid nephrotoxic agents and monitor renal function (8) Hypertension Current Visit: Yes Status: Acute Assessment and Plan: Stable, continue current regimen (9) Hyperkalemia Current Visit: Yes Status: Acute Assessment and Plan: 5.2 this AM - given calcium gluconate Continue to follow - may need more calcium gluconate in the future DVT Prophylaxis: Lovenox - Time Spent with Patient Total time spent is greater than 50% in coordination of care (as documented) at patient's floor/unit and/or counseling patient: Internal Medicine: Result - Labs CBC & Chem 7: 03/31/19 02:45 03/31/19 13:12 Labs: Short CBC 03/31/19 Range/Units 02:45 WBC 13.2 H (4.3-11.1) K/mcL Hgb 13.0 (12.9-16.9) g/dL Hct 38.8 (37.5-50.1) % Plt Count 169 (140-400) K/mcL Neutrophils # 11.2 H (1.6-8.9) K/mcL BMP 03/31/19 03/31/19 02:45 13:12 Sodium 131 L 133 L Potassium 5.2 H 5.5 H Chloride 95 L 97 L Carbon Dioxide 27 25 BUN 78 H 81 H Creatinine 2.34 H 2.21 H Glucose 123 H 132 H Calcium 9.4 9.7 Liver Function 03/31/19 Range/Units 02:45 Total Bilirubin 0.4 (0.3-1.0) mg/dL AST 21 (13-39) Units/L ALT 15 (7-52) Units/L Alkaline Phosphatase 91 (34-104) Units/L Albumin 3.3 L (3.5-5.7) g/dL - ABG Interpretation ABG results: ABG ABG pH 7.42 pH Units (7.32-7.45) 03/25/19 12:05 ABG pCO2 46 mmHg (35-45) H 03/25/19 12:05 ABG pO2 76 mmHg (85-104) L 03/25/19 12:05 ABG O2 Saturation 95 % (95-98) 03/25/19 12:05 Consult Discharge Plan - Plan Referrals: Wang Nunes [Primary Care Provider] - <Stewart Meraz - Last Filed: 03/31/19 16:33> Hospitalist Progress Note - Encounter Date of Encounter: 03/31/19 - Exam Vitals: Temp Pulse Resp BP Pulse Ox 98.0 F 100 29 124/74 98 03/31/19 12:44 03/31/19 12:44 03/31/19 12:44 03/31/19 12:44 03/31/19 12:44 - Assessment and Plan (1) Community acquired pneumonia Current Visit: Yes Status: Acute (2) Small cell lung cancer Current Visit: Yes Status: Chronic Code(s): C34.90 - Malignant neoplasm of unspecified part of unspecified bronchus or lung (3) Hypertension Current Visit: Yes Status: Acute (4) Acute respiratory failure with hypoxia Current Visit: Yes Status: Acute (5) DVT prophylaxis Current Visit: Yes Status: Acute (6) Goals of care, counseling/discussion Current Visit: Yes Status: Acute (7) Pulmonary embolism Current Visit: Yes Status: Acute (8) Acute kidney injury Current Visit: Yes Status: Acute (9) Acute renal failure Current Visit: Yes Status: Suspected (10) Pneumonia Current Visit: Yes Status: Suspected - Time Spent with Patient Total time spent is greater than 50% in coordination of care (as documented) at patient's floor/unit and/or counseling patient: Internal Medicine: Result - Labs CBC & Chem 7: 03/31/19 02:45 03/31/19 13:12 Labs: Short CBC 03/31/19 Range/Units 02:45 WBC 13.2 H (4.3-11.1) K/mcL Hgb 13.0 (12.9-16.9) g/dL Hct 38.8 (37.5-50.1) % Plt Count 169 (140-400) K/mcL Neutrophils # 11.2 H (1.6-8.9) K/mcL BMP 03/31/19 03/31/19 02:45 13:12 Sodium 131 L 133 L Potassium 5.2 H 5.5 H Chloride 95 L 97 L Carbon Dioxide 27 25 BUN 78 H 81 H Creatinine 2.34 H 2.21 H Glucose 123 H 132 H Calcium 9.4 9.7 Liver Function 03/31/19 Range/Units 02:45 Total Bilirubin 0.4 (0.3-1.0) mg/dL AST 21 (13-39) Units/L ALT 15 (7-52) Units/L Alkaline Phosphatase 91 (34-104) Units/L Albumin 3.3 L (3.5-5.7) g/dL - ABG Interpretation ABG results: ABG ABG pH 7.42 pH Units (7.32-7.45) 03/25/19 12:05 ABG pCO2 46 mmHg (35-45) H 03/25/19 12:05 ABG pO2 76 mmHg (85-104) L 03/25/19 12:05 ABG O2 Saturation 95 % (95-98) 03/25/19 12:05 - Attending Attestation I examined this patient and my medical decision-making was reviewed with the Resident Physician on 03/31/19. I agree with the documented findings, disposition and treatment plan as described except to the extent set forth below. Mr Jensen is currently admitted for acute on chronic resp failure. He remains moderate to high risk due to potential for worsening clinical status. Mr Jensen is resting on bipap. He gets very dyspneic when off bipap. Ativan IV helps. No fever or chills. Renal function worsening. Exam alert Comfortable Mucus membranes moist Heart not tachy No wheeze abd soft Moves all extremities I/P 1. Resp failure - bipap dependent at this time. 2. Lung cancer 3. Renal failure - most likely prerenal. Further diagnoses and plan as above. <Amandeep Lo - Last Filed: 03/31/19 13:45> (2) Community acquired pneumonia Qualifiers: Laterality: right Lung location: lower lobe of lung Qualified Code(s): J18.1 - Lobar pneumonia, unspecified organism (5) Pulmonary embolism Qualifiers: Pulmonary embolism type: other Chronicity: unspecified Acute cor pulmonale presence: without acute cor pulmonale Qualified Code(s): I26.99 - Other pulmonary embolism without acute cor pulmonale (8) Hypertension Qualifiers: Hypertension type: essential hypertension Qualified Code(s): I10 - Essential (primary) hypertension <Stewart Meraz - Last Filed: 03/31/19 16:33> (1) Community acquired pneumonia Qualifiers: Laterality: right Lung location: lower lobe of lung Qualified Code(s): J18.1 - Lobar pneumonia, unspecified organism (3) Hypertension Qualifiers: Hypertension type: essential hypertension Qualified Code(s): I10 - Essential (primary) hypertension (7) Pulmonary embolism Qualifiers: Pulmonary embolism type: other Chronicity: unspecified Acute cor pulmonale presence: without acute cor pulmonale Qualified Code(s): I26.99 - Other pulmonary embolism without acute cor pulmonale (9) Acute renal failure Qualifiers: Acute renal failure type: with acute tubular necrosis Qualified Code(s): N17.0 - Acute kidney failure with tubular necrosis (10) Pneumonia Qualifiers: Pneumonia type: due to other aerobic Gram-negative bacteria Laterality: b ilateral Lung location: lower lobe of lung Qualified Code(s): J15.6 - Pneumonia due to other Gram-negative bacteria
--- NOTE | 2019-03-31 15:56 | Pulmonology Progress Note ---
Date of Encounter: 03/31/19 Time of Encounter: 13:30 Assessment and Plan (1) Acute respiratory failure with hypoxia Current Visit: Yes Status: Acute Overall his condition is worsening and he felt better after he had bronchoscopy yesterday and now is more hypoxic. I have called pathology around here today and explained to them that we need result of biopsy as soon as possible and BAL shows evidence of acute inflammation which could be related to radiation. Systemic steroid dose has increased and discussed this with primary team. CT chest was done with evidence of probable pulmonary embolism, however with his lung cancer it will be safer to have him on anticoagulation and also diuresis as much as tolerated. Needs to continue follow-up on the result of bronchoscopy and I have explained this to the patient and his family at the bedside. I feel overall prognosis is poor especially with his CT chest findings. 03/28 patient is still requiring high FiO2 and significant hypoxia mainly when patient mobilize. I have discussed with the pathologist regarding his biopsy result which does not show any evidence of malignancies and acute inflammatory changes in the bronchoalveolar lavage. Since this is transbronchial biopsy, and that his limitations due to the size of the biopsy and my not reflect true disease and he denies no improvement, will consider consultation with thoracic surgeon for possible larger size biopsy. Diuresis as much as possible and continue current dose of systemic steroid. If cultures remain negative we will consider de-escalation. 03/29 patients today is lethargic, however he is comfortable and he has received narcotic and sedative for comfort. I have had extensive discussion with the family at the bedside regarding case care and explained to them about my recommendation which is outlined yesterday and ideally will need to open lung biopsy. Family does not want to have any aggressive approach or any surgeries because patient did not want that which is reasonable. Have discussed with the primary team and palliative team and due to diuresis as much as possible is recommended and hopefully that will help some of his pulmonary like edema. Noninvasive ventilation is recommended as long as patient is tolerating it. 03/30 patient examined and his oxygen saturation was around 83% on the high flow oxygen and I have explained to him we need to try noninvasive ventilation. He agreed to try BiPAP and then I have changed the mode to CPAP for the comfort he seems to be more comfortable on the BiPAP. Talk to the respiratory therapist at the bedside to continue BiPAP at this time and to give him a break when he wants that. If his oxygen saturation remained within acceptable range then he can be mobilized and out of bed to the chair. I have discussed this with the family at the bedside. Unfortunately, it does not appear diuresis has helped significantly so far. 03/31 there is no significant changes unfortunately and if anything patient is more BiPAP dependent at this time and see him recommendations as before. I have explained to the family at the bedside I suspect his condition may not improve and this is secondary to his underlying malignancies and they understand that. (2) Small cell lung cancer Current Visit: Yes Status: Chronic Subjective Principal diagnosis: Acute hypoxic respiratory failure Interval history: Patient denies any significant changes, but he feels BiPAP is helping him to breath better. Objective PUL Vital signs: Last Vital Signs Temp 98.0 F 03/31/19 12:44 Pulse 100 03/31/19 12:44 Resp 29 03/31/19 12:44 BP 124/74 03/31/19 12:44 Pulse Ox 98 03/31/19 12:44 General appearance: appears uncomfortable Eyes: nonicteric ENT: oropharynx dry Effort: mildly labored Auscultation: bilateral: rales Percussion: bilateral: not dull Cardiovascular: regular rate and rhythm Gastrointestinal: normoactive bowel sounds, non-distended Extremities: no cyanosis normal mental status, non-focal exam depressed Results - Laboratory Findings CBC and BMP: 03/31/19 02:45 03/31/19 13:12 ABG ABG pH 7.42 pH Units (7.32-7.45) 03/25/19 12:05 ABG pCO2 46 mmHg (35-45) H 03/25/19 12:05 ABG pO2 76 mmHg (85-104) L 03/25/19 12:05 ABG O2 Saturation 95 % (95-98) 03/25/19 12:05 Abnormal lab findings: Abnormal lab results WBC 13.2 K/mcL (4.3-11.1) H 03/31/19 02:45 Hgb 12.8 g/dL (12.9-16.9) L 03/25/19 01:42 RDW 15.4 % (11.5-14.5) H 03/31/19 02:45 Plt Count 127 K/mcL (140-400) L 03/25/19 01:42 11.2 K/mcL (1.6-8.9) H 03/31/19 02:45 ABG pCO2 46 mmHg (35-45) H 03/25/19 12:05 ABG pO2 76 mmHg (85-104) L 03/25/19 12:05 ABG HCO3 30 mEq/L (21-27) H 03/25/19 12:05 ABG Total CO2 31 mEq/L (20-26) H 03/25/19 12:05 ABG Base Excess 4 mEq/L (-2 to 3) H 03/25/19 12:05 Sodium 133 mEq/L (136-145) L 03/31/19 13:12 Potassium 5.5 mEq/L (3.5-5.1) H 03/31/19 13:12 Chloride 97 mEq/L (98-107) L 03/31/19 13:12 Carbon Dioxide 20 mEq/L (23-29) L 03/29/19 05:53 BUN 81 mg/dL (8-23) H 03/31/19 13:12 2.21 mg/dL (0.70-1.30) H 03/31/19 13:12 Est GFR ( Amer) 36 (> 60) L 03/31/19 13:12 Est GFR (Non-Af Amer) 30 (> 60) L 03/31/19 13:12 37 (6-26) H 03/31/19 13:12 Glucose 132 mg/dL (70-105) H 03/31/19 13:12 POC Glucose 112 mg/dL (70-99) H 03/24/19 06:13 302 (280-300) H 03/31/19 13:12 Calcium 10.6 mg/dL (8.6-10.3) H 03/26/19 09:13 0.04 ng/mL (< 0.04) H* 03/26/19 09:13 6.2 g/dL (6.4-8.9) L 03/31/19 02:45 3.3 g/dL (3.5-5.7) L 03/31/19 02:45 Fluid Appearance Slightly Hazy (Clear) A 03/24/19 08:07 - Clinical Findings Intake & Output: Intake & Output 03/30/19 03/31/19 03/31/19 23:59 07:59 15:59 Intake Total 530 / 1590 110 / 110 Output Total 650 / 990 190 / 190 Balance -120 / 600 -80 / -80 Weight 94 kg Consult Discharge Plan - Plan Referrals: Wang Nunes [Primary Care Provider] -
[2019-03-31 19:09] VITALS: BP 129/69
[2019-03-31] MEDS: MORPHINE SUL Oral CONC 10 MG/0.5 ML ORAL.SYG SL PRN (22:48)
[2019-03-31] MEDS ORDERED: Haloperidol Lactate 5 MG/ML VIAL ONE (23:25)
[2019-03-31] MEDS ORDERED: Haloperidol Lactate 5 MG/ML VIAL IM ONE (23:30)
[2019-03-31] MEDS ORDERED: *HR* Morphine 2 MG/ML SYRINGE IH PRN (23:44)
[2019-04-01] MEDS ORDERED: MORPHINE SUL Oral CONC 10 MG/0.5 ML ORAL.SYG SL PRN
[2019-04-01] MEDS ORDERED: *HR* Metoprolol 5 MG/5 ML VIAL IVP SCH
[2019-04-01] MEDS ORDERED: Haloperidol Lactate 5 MG/ML VIAL IVP SCH
[2019-04-01] MEDS ORDERED: Melatonin 3 MG TABLET PO PRN (00:34)
--- NOTE | 2019-04-01 00:54 | Event Note ---
Date of Encounter: 04/01/19 Time of Encounter: 00:43 Paged by nursing the patient was extremely anxious and wanted to remove the BiPAP. Upon presenting to his room his respiratory rate was in the high 40s and he appeared extremely uncomfortable and agitated with oxygen saturation of 85% on BiPAP. Family was at bedside trying to hold him down and keep his mask on. She had received 5 mg of sublingual morphine 30 minutes prior to this event. He had also received Ativan few hours prior to this event. Per his sister, Kayla, she reported he did not tolerate Ativan when he received it previously this past week. Had a discussion with the family which included his brother, and sister about next steps. They reported he never wanted to be on BiPAP and he feels extremely uncomfortable and anxious on it. I then discussed with them that removing the BiPAP can have adverse effect given his oxygenation is already diminished. They were understanding of that and reported BiPAP is not comfortable for him and they would like to switch his CODE STATUS to DNR CC. They also asked for more medications to keep him comfortable. He received 1 mg of IV Haldol which he did not respond to. 30 minutes later he received an additional 1 mg IM Haldol, he did not respond to that. His agitation and anxiety continued. He was switched to the Deb for oxygenation which he also did not tolerate. He was then switched to nasal cannula. Discussed with the family that switching of nasal cannula decreases his oxygenation and causes less oxygenation to his vital organs. They were understanding of that and reported the BiPAP and the Deb are uncomfortable for him and he does not want anything that will would make him further uncomfortable. He additionally received 2 mg of inhaled morphine for "air hunger" which he responded to a few days prior but tonight did not respond to it. Because he continued to remain uncomfortable 10 mg of oxycodone every 4 HR was ordered. He received the oxycodone but continued to appear very uncomfortable trying to get out of bed. I also discussed with pharmacy about medication options as well. After discussing with Dr. Manning he was given 25 mg IV fentanyl and 5 mg valium. It helped him for about 1 hour. Soon after he was again trying to get out of bed and remained uncomfortable. Family was upset nothing was helping him so decision was made to start precedex drip. Currently on precedex drip and family would like to transition him to hospice tomorrow morning.
[2019-04-01] MEDS ORDERED: OXYCODONE Oral CONC 10 MG/0.5 ML ORAL.SYG SL SCH (01:00)
[2019-04-01] MEDS ORDERED: diazePAM 10 MG/2 ML SYRINGE IVP ONE (01:01)
[2019-04-01] MEDS ORDERED: diazePAM 10 MG/2 ML SYRINGE ONE (01:04)
[2019-04-01] MEDS: *HR* FentaNYL (PF) 100 MCG/2 ML VIAL IVP PRN (01:11)
[2019-04-01] MEDS: methylPREDNISolone 125 MG/2 ML VIAL IVP SCH (01:12)
[2019-04-01] MEDS ORDERED: *HR* FentaNYL (PF) 100 MCG/2 ML VIAL IVP PRN (01:19)
[2019-04-01] MEDS ORDERED: diazePAM 10 MG/2 ML SYRINGE IVP PRN (01:45)
[2019-04-01] MEDS ORDERED: 0.9 % Sodium Chloride 250 ML ONE (02:10)
[2019-04-01] MEDS ORDERED: Dexmedetomidine HCl 400 MCG/100 ML MLS IVC ONE (02:10)
[2019-04-01] MEDS ORDERED: Dexmedetomidine HCl 400 MCG/100 ML MLS IVC SCH (02:15)
--- NOTE | 2019-04-01 04:05 | Death Note ---
Discharge Sum: Summary - Date and Time Date of admission: 03/22/19 14:53 Date of : 04/01/19 Time of : 03:22 - Summary Details: Mr. Jensen was a 68-year-old male with past medical history of hypertension, s mall cell lung cancer who had presented to the hospital on 03/22/19 due to shortness of breath. He reported progressively worsening shortness of breath with cough for the past 1 week at admission. He had noted shortness of breath 6 weeks prior to presentation and was on a steroid taper which did not resolve his symptoms. In the ED his oxygen saturation was noted to be in the mid 80s on admission. Pulmonology was consulted and they had recommended bronchoscopy which he had agreed to go forth with. On 03/24/19 he underwent bronchoscopy which showed mucus plugging nonobstructing airway samples were sent for cytology. He had episodes of sinus tachycardia and underwent echocardiogram which showed normal EF 70%. Additionally he underwent CTA of the chest which showed increasing paraceliac lymph node with lytic osseous metastases and metastatic pulmonary nodules throughout the lung increased in size since 01/21/19. Additionally there was probable segmental pulmonary embolism in the left lower lobe noted. Oncology was consulted. On 07/28/18 he had been started on chemotherapy with cisplatin and etoposide; completed 4 cycles as well as radiation therapy with cranial radiation and had developed pneumonitis. Oncology discussed with the family about image finding the metastatic disease and due to previous discomfort from chemotherapy he did not want to go forth with treatments at that time. He was started on Lovenox twice a day for the pulmonary embolism. Additionally he was receiving Levaquin for pneumonia as well as Xopenex for respiratory treatment. Palliative was consulted on 03/27/19 patient expressed fear of being intubated and had fear of suffocation. Due to his worsening respiratory status he was started on BiPAP but was not tolerating it due to anxiety and fear of suffocation. Palliative had started Ativan as well as morphine and fentanyl for severe dyspnea as well as pain control. On 03/29/19 he had a panic attack and sister, Kayla was at bedside and reported he does not tolerate BiPAP and is extremely anxious of being suffocated. She wanted him to be comfortable but reported the family had not decided on to changing the CODE STATUS to DNR CC. He subsequently received 2 mg inhaled morphine which seemed to have improved some of his "air hunger" although he continued to have episodes of anxiety and agitation. On 03/31/19 palliative discussed with the family about his anxiety with a BiPAP mask, but he wanted to continue using the mask due to fear of air hunger. On 04/01/19 patient became extremely restless and anxious while on BiPAP. He had tried to remove the BiPAP but the family was holding him down as he was trying to leave the bed. He had received his PRN medications but was not responding. Discussed with the family about goals of care and they had decided the BiPAP is extremely uncomfortable for him and they would like to discontinue it and change his CODE STATUS to DNR CC. I also discussed with him that as a result it can worsen his respiratory status and decrease oxygenation to vital organs. He was switched to Deb oxygenation but was not tolerating it and subsequently was switched to nasal cannula. Additionally required 25 mg of fentanyl with 5 mg of Valium for relaxation and severe dyspnea. Although the combination helped him relax, shortly after medication was given he became restless and agitated again subsequently Precedex drip was started at 0.2 mcg/kg/hour at 02:16 which helped him relax. Family was at bedside during the entire night. Was paged by nursing that he appeared to have no respiration or heart rate. Examined the patient and checked radial and carotid pulses which were nonpalpable. Doppler was used to confirm and no pulses were heard. Additionally he had no respiration and his blood pressure could not be measured. His pupils were fixed and dilated. Family was at bedside and informed of time of at 03:22. - Additional Data Confirmation of as documented by pronouncing clinician: no pulse, no respirations, no heart sounds, pupils fixed and dilated Family: at bedside Attending/PCP notified?: Yes Attending physician: Stewart Meraz, DO Dr. Kerri Cedeno Was code activated?: No Autopsy requested?: No Organ bank notified?: No Hospice patient?: No Discharge Sum: Diag - PCOD Probable Cause of : Small cell carcinoma of lung Discharge Sum: Prov - Provider Primary care physician: Wang Nunes Admitting clinician: Orion Cortes Attending physician on admission: Chris Manning Consults: 03/22/19 16:08 Consult to Nurse Navigator [CONS] Routine Comment: pneumonia 03/23/19 08:54 Consult to Pulmonology [CONS] Routine Consulting Provider: [facility] Reason for Consult: Pt with recurrent/metastatic lung ca; sent from rad/onc yesterday for pneumonia with atypical imaging. Concern for PCP PNA. Pt recommended for bronchoscopy. Time Notified: 08:56 Call Completed: Yes 03/25/19 14:03 Consult to Glaucoma Specialist [CONS] Routine Reason for SW Consult: Would like information regarding living will/POA 03/25/19 15:29 Consult to Oncology Hematology [CONS] Routine Consulting Provider: Anup Dinh Reason for Consult: Metastatic lung cancer Time Notified: 15:31 Call Completed: No 03/26/19 14:09 Consult to Palliative Care [CONS] Routine Comment: Consulting Provider: Palliative Care Pam Reason for Consult: Recurrent/metastatic small cell lung cancer. Patient has acute hypoxic respiratory failure, and is currently requiring 10-15 L supplemental oxygen to maintain oxygen saturation in the high 80s/low 90s. Patient is open to receiving information about palliative and comfort focused care. Time Notified: 14:10 Call Completed: Yes Pronouncing clinician: Barbra Campbell
== END 2019-04-01 04:45 | disposition expired | DRG 189 ==
LOC: EMEROOARM 11:30 → SUATTDRO 14:53 → 3ANU 14:53 → 2NNU 03-25 15:40
PROVIDERS: ADMIT Student in an Organized Health Care Education/Training Program; ATTEND Internal Medicine